=== PATIENT | female | born 2000 | race Caucasian/White ===

== ENCOUNTER → 2022-01-13 | Outpatient (CLI) | payer BC, SELFPAY ==
[2022-01-13 11:17] LABS: Estradiol 23.2 pg/mL; Luteinizing Hormone 0.8 mIU/mL; Prolactin 6.1 ng/mL; Thyroid Stim Hormone (TSH) 1.94 uIU/mL (0.358-3.74)
[2022-01-19 16:10] LABS: HPV Reflexed? NOT INDICATED
== END | disposition home or self-care (01) ==
PROVIDERS: Visit Provider Student in an Organized Health Care Education/Training Program
DX: N91.1 Secondary amenorrhea (principal); Z12.4 Encounter for screening for malignant neoplasm of cervix
CPT/HCPCS: 36415; 82670; 83001; 83002; 84146; 84443; 88175; G0145

== ENCOUNTER → 2022-07-07 | Outpatient (CLI) | payer BC, SELFPAY ==
[2022-07-07 10:58] LABS: Absolute Lymphocyte Count 1.15 X10^3/uL (0.83-4.51); Absolute Neutrophil Count 3.8 X10^3/uL (2.0-7.7); Basophil# 0.04 X10^3/uL; Basophil% 0.7 % (0-1); Eosinophil# 0.06 X10^3/uL; Eosinophils% 1.1 % (0-5); Hematocrit 37.9 % (37-47); Hemoglobin 12.9 g/dL (12.0-15.0); Lymphocyte # 1.15 X10^3/ul (0.83-4.51); Lymphocyte % 21.5 % (19-41); Mean Corpuscular Hgb 31.9 pg (27.0-32.0); Mean Corpuscular Volume 93.8 fL (81-99); Mean Platelet Vol. 11.4 fl (6.2-12.0); Monocyte# 0.33 X10^3/uL; Monocyte% 6.2 % (0-10); NRBC Flagged by Analyzer 0 % (0-5); Neutrophil # 3.77 X10^3/uL (2.7-7.7); Neutrophil % 70.3 % (47-70); Platelet Count 150 K/mm3 (150-450); RBC Distribution Width CV 12.6 % (11.6-14.6); RBC Distribution Width SD 43.5 fl (35.1-43.9); Red Blood Count 4.04 M/mm3 (4.2-5.4); White Blood Count 5.4 K/mm3 (4.4-11.0)
[2022-07-07 11:46] LABS: HIV - WCH Non-Reactive (Nonreactive); Hepatitis B Surface Antigen Non-Reactive (Nonreactive); Hepatitis C Antibody Non-Reactive (Nonreactive); Rubella IgG Reactive (Nonreactive); Syphilis Antibodies Non-reactive
[2022-07-08 11:00] LABS: V-Zoster IgG (Immunity) 2093 index (Immune >165)
== END | disposition home or self-care (01) ==
LOC: WOBLAB 09:32
PROVIDERS: Visit Provider Obstetrics & Gynecology
DX: Z34.81 Encounter for supervision of other normal pregnancy, first trimester (principal)
CPT/HCPCS: 36415; 85025; 86703; 86762; 86780; 86787; 86803; 87086; 87340

== ENCOUNTER → 2022-12-01 | Outpatient (CLI) | payer BC, SELFPAY ==
[2022-12-01 09:49] LABS: Absolute Lymphocyte Count 1.06 X10^3/uL (0.83-4.51); Absolute Neutrophil Count 5.4 X10^3/uL (2.0-7.7); Basophil# 0.05 X10^3/uL; Basophil% 0.7 % (0-1); Eosinophil# 0.11 X10^3/uL; Eosinophils% 1.6 % (0-5); Hematocrit 37.8 % (37-47); Hemoglobin 12.7 g/dL (12.0-15.0); Lymphocyte # 1.06 X10^3/ul (0.83-4.51); Mean Corp Hgb Conc 33.6 g/dL (32-36); Mean Corpuscular Hgb 32.8 pg (27.0-32.0); Mean Corpuscular Volume 97.7 fL (81-99); Monocyte# 0.37 X10^3/uL; Monocyte% 5.2 % (0-10); NRBC Flagged by Analyzer 0 % (0-5); Neutrophil # 5.37 X10^3/uL (2.7-7.7); Neutrophil % 76.2 % (47-70); Platelet Count 130 K/mm3 (150-450); RBC Distribution Width CV 13.6 % (11.6-14.6); RBC Distribution Width SD 48.1 fl (35.1-43.9); Red Blood Count 3.87 M/mm3 (4.2-5.4); White Blood Count 7.1 K/mm3 (4.4-11.0)
[2022-12-01 09:56] LABS: Glucose Challenge Gest 1H 50g 118 mg/dL (70-140)
[2022-12-01 10:19] LABS: Syphilis Antibodies Non-reactive
== END | disposition home or self-care (01) ==
LOC: WOBLAB 08:51
PROVIDERS: Visit Provider Student in an Organized Health Care Education/Training Program
DX: Z34.82 Encounter for supervision of other normal pregnancy, second trimester (principal); Z3A.00 Weeks of gestation of pregnancy not specified
CPT/HCPCS: 36415; 82950; 85025; 86780

== ENCOUNTER 2023-02-18 03:58 | Inpatient (IN) | payer BC, SELFPAY ==
[2023-02-18] VITALS (74 sets, daily range): BP systolic 97–130; BP diastolic 54–82; PULSE 53–96; TEMP 36.7–37.4; O2SAT 83–100; BMI 23.2
[2023-02-18 03:55] LABS: ROM Internal Control Test YES-OK TO RESULT pt. (Internal QC); ROM Patient Test POSITIVE (Negative)
[2023-02-18 03:56] LABS: Record Kit Lot#, ROM+ K1409
[2023-02-18] MEDS: Lactated Ringers 1,000 ML 200 ML IV ×3 (04:20→15:23)
[2023-02-18] MEDS: LACTATED RINGERS 500 ML 999 ML IV ×3 (04:20→15:52)
[2023-02-18 04:44] LABS: Absolute Lymphocyte Count 1.29 X10^3/uL (0.83-4.51); Absolute Neutrophil Count 4.2 X10^3/uL (2.0-7.7); Basophil# 0.02 X10^3/uL; Basophil% 0.3 % (0-1); Eosinophil# 0.07 X10^3/uL; Eosinophils% 1.2 % (0-5); Hematocrit 40.1 % (37-47); Hemoglobin 13.2 g/dL (12.0-15.0); Lymphocyte # 1.29 X10^3/ul (0.83-4.51); Lymphocyte % 21.3 % (19-41); Mean Corp Hgb Conc 32.9 g/dL (32-36); Mean Corpuscular Hgb 31.6 pg (27.0-32.0); Mean Corpuscular Volume 95.9 fL (81-99); Mean Platelet Vol. 13.2 fl (6.2-12.0); Monocyte# 0.48 X10^3/uL; Monocyte% 7.9 % (0-10); NRBC Flagged by Analyzer 0 % (0-5); Neutrophil # 4.17 X10^3/uL (2.7-7.7); Neutrophil % 68.8 % (47-70); Platelet Count 117 K/mm3 (150-450); RBC Distribution Width SD 45.1 fl (35.1-43.9); Red Blood Count 4.18 M/mm3 (4.2-5.4); White Blood Count 6.1 K/mm3 (4.4-11.0)
[2023-02-18] MEDS: fentaNYL-bupivacaine (epidural) 100 ML BAG EPIDURAL ×3 (05:48→14:47)
[2023-02-18 06:09] LABS: Syphilis Antibodies Non-reactive
[2023-02-18] MEDS: Oxytocin 15 Units/NS 250ml 15 UNITS/250 ML IV.SOLN 2 UNITS IV (08:19)
--- NOTE | 2023-02-18 09:53 | PCM.HP.OB ---
HPI - General General Date of Admission: 02/18/23 Date of Service: 02/18/23 Chief Complaint: labor HPI Narrative ANDREW LYONS, is a 22 F who presents c/o ctxs and SROM. SROM approx midnight. Denies gross vaginal bleeding. is uncomplicated to date other than she has been diagnosed with gestational thrombocytopenia. Platelets have remained above 100. Maternal Data Information Final BILL: 02/27/23 Gestational age: 38 5/7 PFSH PFSH Medical History no medical history Allergy/AdvReac Type Severity Reaction Status Date / Time No Known Allergies Allergy Verified 02/18/23 03:26 Family History no significant family his Surgical History no surgical history Social History Smoking Status: Never smoker History Elective abortions Hx Para 0 Spontaneous abortions Hx # Term Pregnancies Ectopic pregnancies Hx # Pregnancies Multiple births # of living children ROS Constitutional Constitutional: Denies fatigue, fever(s) or malaise Eyes Eyes: Denies change in vision ENT HEENT: Denies dizziness or headache(s) Cardiovascular Cardiovascular: Denies chest pain, dyspnea or lightheadedness Respiratory/Chest Respiratory/Chest: Denies cough or dyspnea Gastrointestinal Gastrointestinal: Denies change in bowel habits Genitourinary Genitourinary: Denies burning urination or genital lesions Integumentary Integumentary: Denies rash Neurologic Neurologic: Denies confusion, dizziness, headache(s), numbness or weakness Vital Signs Vital Signs Vital Signs: 02/18/23 03:25 02/18/23 03:25 02/18/23 03:26 Temperature Temperature Source Temporal Pulse Rate 67 Blood Pressure 121/73 H BP Systolic 121 BP Diastolic 73 Pulse Ox 02/18/23 03:26 02/18/23 05:05 02/18/23 05:05 Temperature 99.2 F H Temperature Source Pulse Rate 65 Blood Pressure BP Systolic BP Diastolic Pulse Ox 98 02/18/23 05:10 02/18/23 05:10 02/18/23 05:12 Temperature Temperature Source Pulse Rate 81 Blood Pressure 130/81 H BP Systolic 130 BP Diastolic 81 Pulse Ox 98 02/18/23 05:12 02/18/23 05:15 02/18/23 05:15 Temperature Temperature Source Pulse Rate 82 80 Blood Pressure BP Systolic BP Diastolic Pulse Ox 98 02/18/23 05:16 02/18/23 05:16 02/18/23 05:20 Temperature Temperature Source Pulse Rate 82 96 Blood Pressure 127/82 H BP Systolic 127 BP Diastolic 82 Pulse Ox 02/18/23 05:20 02/18/23 05:22 02/18/23 05:22 Temperature Temperature Source Pulse Rate 68 Blood Pressure 121/74 H BP Systolic 121 BP Diastolic 74 Pulse Ox 98 02/18/23 05:26 02/18/23 05:26 02/18/23 05:25 Temperature Temperature Source Pulse Rate 59 L Blood Pressure 100/56 L BP Systolic 100 BP Diastolic 56 Pulse Ox 98 02/18/23 05:31 02/18/23 05:31 02/18/23 05:30 Temperature Temperature Source Pulse Rate 63 Blood Pressure 102/58 L BP Systolic 102 BP Diastolic 58 Pulse Ox 97 02/18/23 05:35 02/18/23 05:35 02/18/23 05:40 Temperature Temperature Source Pulse Rate 64 60 Blood Pressure BP Systolic BP Diastolic Pulse Ox 97 02/18/23 05:40 02/18/23 05:41 02/18/23 05:41 Temperature Temperature Source Pulse Rate 59 L Blood Pressure 103/57 L BP Systolic 103 BP Diastolic 57 Pulse Ox 97 02/18/23 05:42 02/18/23 05:42 02/18/23 05:45 Temperature Temperature Source Pulse Rate 75 59 L Blood Pressure 111/58 L BP Systolic 111 BP Diastolic 58 Pulse Ox 02/18/23 05:45 02/18/23 05:46 02/18/23 05:46 Temperature Temperature Source Pulse Rate 57 L Blood Pressure 103/55 L BP Systolic 103 BP Diastolic 55 Pulse Ox 98 02/18/23 05:51 02/18/23 05:51 02/18/23 05:50 Temperature Temperature Source Pulse Rate 58 L Blood Pressure 106/57 L BP Systolic 106 BP Diastolic 57 Pulse Ox 99 02/18/23 05:55 02/18/23 05:55 02/18/23 06:00 Temperature Temperature Source Pulse Rate 59 L 60 Blood Pressure BP Systolic BP Diastolic Pulse Ox 98 02/18/23 06:00 02/18/23 06:05 02/18/23 06:05 Temperature Temperature Source Pulse Rate 63 Blood Pressure BP Systolic BP Diastolic Pulse Ox 98 97 02/18/23 06:10 02/18/23 06:10 02/18/23 06:15 Temperature Temperature Source Pulse Rate 63 63 Blood Pressure BP Systolic BP Diastolic Pulse Ox 96 02/18/23 06:15 02/18/23 06:20 02/18/23 06:20 Temperature Temperature Source Pulse Rate 61 Blood Pressure BP Systolic BP Diastolic Pulse Ox 97 98 02/18/23 06:23 02/18/23 06:23 02/18/23 08:05 Temperature Temperature Source Pulse Rate 55 L Blood Pressure 110/66 107/57 L BP Systolic 110 107 BP Diastolic 66 57 Pulse Ox 02/18/23 08:05 02/18/23 08:05 02/18/23 08:05 Temperature Temperature Source Temporal Pulse Rate 70 80 Blood Pressure BP Systolic BP Diastolic Pulse Ox 02/18/23 08:05 02/18/23 08:05 02/18/23 08:57 Temperature 98.9 F Temperature Source Temporal Pulse Rate Blood Pressure BP Systolic BP Diastolic Pulse Ox 98 02/18/23 08:57 02/18/23 08:57 02/18/23 08:57 Temperature Temperature Source Pulse Rate 58 L Blood Pressure 105/59 L BP Systolic 105 BP Diastolic 59 Pulse Ox 98 02/18/23 08:57 Temperature 98.3 F Temperature Source Pulse Rate Blood Pressure BP Systolic BP Diastolic Pulse Ox Weight Weight: 65.317 kg Body Mass Index (BMI) 23.2 Physical Exam Const alert and no apparent distress General Appearance: cooperative HEENT normocephalic Resp normal respiratory effort Cardio regular rate GI soft to palpation GI Narrative: gravid, nontender, appropriate for gestational age Extremity no calf tenderness General Extremity: edema Skin no wounds Rashes: No rashes noted Psych activity/motor behavior normal Labs Labs Labs: Blood Type A POSITIVE Antibody Screen NEGATIVE Hct 40.1 % (37-47) Hgb 13.2 g/dL (12.0-15.0) Syphilis Total Ab Non-reactive VZV IgG Antibody 2093 index (Immune >165) Rubella IgG Antibody Reactive (Nonreactive) Hep Bs Antigen Non-Reactive (Nonreactive) Hepatitis C Antibody Non-Reactive (Nonreactive) HIV 1&2 Antibody Non-Reactive (Nonreactive) Glucose 1 Hr 50 gm 118 mg/dL (70-140) Assessment & Plan (1) 38 weeks gestation of : PLAN: 22-year-old 1 para 0 at term in spontaneous labor. Spontaneous rupture membranes. Estimated weight is less than 4000 g clinically and by ultrasound and pelvis clinically adequate to expect vaginal delivery. May have routine pain control measures as desired and indicated. Pitocin augmentation if needed. Expectant management for vaginal delivery. (2) SROM (spontaneous rupture of membranes): (3) Nulliparity:
--- NOTE | 2023-02-18 16:44 | OP.PCM_ITS ---
Maternal Data Information Final BILL: 02/27/23 Gestational age: 38 5/7 Vaginal Delivery Maternal Presentation Maternal Presentation: Active Labor and Spontaneous Rupture of Membranes Operative Information Date of Procedure: 02/18/23 Pre-Operative Diagnosis: labor Post-Operative Diagnosis: same Surgery / Procedure Performed: Spontaneous Vaginal Delivery Type of Anesthesia: Epidural Special Medications: none Drain: Rajput to straight drain Estimated Blood Loss: 400 Time of Delivery: 16:26 Findings Description of Procedure: A vigorous female infant was delivered KYLER over an intact perineum. There was a tight nuchal cord and the infant was delivered through it. The remainder the infant was delivered with maternal pushing and gentle traction only in less than 15 seconds. The Pitocin infusion was initiated for active management of the third stage. The cord was clamped and cut after cord pulsations ceased. The in josr was attended to by the waiting nursing staff. The placenta was delivered spontaneously and intact. The cervix and vagina were intact. The first-degree vaginal laceration was repaired with 3-0 Vicryl Rapide suture in a running standard fashion and was hemostatic. Sponge and needle counts were correct. A vaginal sweep was completed by me. Presentation: KYLER Amniotic Membrane Rupture Type: Spontaneous Amniotic Fluid Description: Clear Placental Delivery Description: Spontaneous Placenta Disposition: [facility] Cord Vessel Description: 3 Vessels Cord Entanglement: Around neck x 1, tight Nuchal Cord Compression: Without compression A Gender: Female ([place] (1 minute): 9 (5 minute): 9 Delayed Cord Clamping: Yes Post Vaginal Delivery Medications Given After Delivery: IV Pitocin Episiotomy Description: None Laceration: 1st degree (vaginal) Complication Complications: None
[2023-02-18] MEDS: Oxytocin 15 Units/NS 250ml 15 UNITS/250 ML IV.SOLN 83 UNITS IV (17:25)
[2023-02-19 01:25] VITALS: BP 103/68; PULSE 56; RESP 18; TEMP 36.6
[2023-02-19 05:07] VITALS: BP 105/67; PULSE 76; RESP 18
[2023-02-19 08:17] VITALS: BP 104/59; PULSE 72; RESP 18; TEMP 36.7; O2SAT 98
[2023-02-19] MEDS: Senna/Docusate Sodium 1 Tablet PO (10:11)
[2023-02-19 12:07] VITALS: BP 114/68; PULSE 61; RESP 18; TEMP 36.7
--- NOTE | 2023-02-19 12:53 | PCM.PN.OB ---
Subjective Subjective Doing well per patient and nursing staff. Ambulating and taking PO without difficulty. Voiding and passing flatus. Pain controlled. Denies headache, visual changes, chest pain, shortness of breath, leg pain or increased bleeding. Lochia normal. Objective Data Objective Data Vital Signs: Vital Signs Temp Pulse Resp BP Pulse Ox O2 Del Method 98.1 F 61 18 114/68 98 Room Air 02/19/23 12:07 02/19/23 12:07 02/19/23 12:07 02/19/23 12:07 02/19/23 08:17 02/19/23 12:07 Oxygen Delivery Method Room Air Weight: 144 lb Body Mass Index (BMI) 23.2 Intake & Output: Intake and Output for Last 24 Hours 02/17/23 02/18/23 02/19/23 23:59 23:59 23:59 Intake Total 7000.00 / 7000.00 800 / 800 Output Total 2850 / 2850 1700 / 1700 Balance 4150.00 / 4150.00 -900 / -900 Lab / Micro Data 02/18/23 04:20 ROS Constitutional Constitutional: Reports systems reviewed and no addt'l complaints, except as documented; Denies headache(s) Eyes Eyes: Denies acute decrease in peripheral vision, blurry vision or change in vision ENT HEENT: Reports systems reviewed and no addt'l complaints, except as documented Cardiovascular Cardiovascular: Denies chest pain or dizziness Respiratory/Chest Respiratory/Chest: Denies cough, dyspnea, dyspnea on exertion, shortness of breath at rest or shortness of breath with exertion Gastrointestinal Gastrointestinal: Denies abdominal pain, diarrhea, nausea or vomiting Genitourinary Genitourinary: Denies abdominal discomfort Musculoskeletal Musculoskeletal: Denies limited range of motion Integumentary Integumentary: Reports systems reviewed and no addt'l complaints, except as documented Neurologic Neurologic: Reports systems reviewed and no addt'l complaints, except as documented Psychiatric Psychiatric: Reports systems reviewed and no addt'l complaints, except as documented Endocrine Endocrinology: Reports systems reviewed and no addt'l complaints, except as documented Hematologic/Lymphatic Hematologic/Lymphatic: Reports systems reviewed and no addt'l complaints, except as documented Allergic/Immunologic Allergic/Immunologic: Reports systems reviewed and no addt'l complaints, except as documented Physical Exam Const alert and oriented x3 General Appearance: cooperative Orientation / Consciousness: awake, oriented to person, oriented to place and oriented to time Exam Limitations: no limitations HEENT normocephalic Head and Scalp: normal to inspection, normocephalic and atraumatic Face and Sinus: normal facial exam Eyes General Eye: normal appearance of both eyes Neck full ROM Chest Chest: symmetrical chest wall rise Resp normal respiratory effort and normal air movement Auscultation: clear to auscultation bilaterally Cardio regular rate, regular rhythm, S1 normal heart sound, S2 normal heart sound, no murmurs, no rub, no gallops and no clicks GI normal to inspection, nondistended, normoactive bowel sounds and non-tender appearance of the vagina normal Bladder / Kidney Exam: no CVA tenderness Back/Spine normal ROM Extremity normal to inspection and full ROM Skin no rashes or lesions noted Neuro oriented x3, CN's II-XII intact bilaterally and moves all extremities Sensorium / Orientation: awake, alert and oriented to person Motor Exam: clonus absent Deep Tendon Reflexes: Rt Patellar (L4): 2+ and Lt Patellar (L4): 2+ Assessment & Plan (1) Vaginal delivery: PLAN: Plan 1) D/C home today 2) Follow up 2 week and 6 week PP
--- NOTE | 2023-02-19 13:06 | PCM.DC.SUM ---
Providers Date of Admission: 02/18/23 Date of Discharge: 02/19/23 Reason For Visit: VAG DELIVERY Diagnosis Discharge Diagnosis (1) Vaginal delivery: Status: Acute Code(s): O80 - Encounter for full-term uncomplicated delivery Plan 1) D/C home today 2) Follow up 2 week and 6 week PP Medications at Discharge Home Medications acetaminophen 500 mg tablet 1,000 mg (2 x 500 mg) PO Q6H PRN PRN Pain 1-10 Or Fever #0 tabs 02/19/23 ibuprofen 600 mg tablet 600 mg PO Q6H PRN PRN Pain Score 1-3 #0 tabs 02/19/23 Hospital Course Summary of Care Provided Minutes Spent on Discharge: 15 Weight / BMI Weight Weight: 144 lb Body Mass Index (BMI) 23.2 ABG / Lab / Microbiology Data 02/18/23 04:20 Meaningful Use Info Meaningful Use Diagnoses (Choose all that apply): None applicable Discharge Plan Admission Admit Date/Time: 02/18/23 03:58 Primary Reason for Your Visit: Vaginal Delivery Attending Provider: Estephania Parra Discharge Orders/Prescriptions Prescriptions: New acetaminophen 500 mg Tablet 1,000 mg PO Q6H PRN PRN (Reason: Pain 1-10 Or Fever) Qty: 0 0RF ibuprofen 600 mg Tablet 600 mg PO Q6H PRN PRN (Reason: Pain Score 1-3) Qty: 0 0RF Referrals / Follow Up: Estephania Parra MD [Med Staff - Active Staff] - (Follow up in 2 weeks and 6 weeks for visit) Disposition Disposition (needs filled in before D/C Order can be placed): Home, Self Care
[2023-02-19 17:31] VITALS: BP 114/68; PULSE 58; RESP 16; TEMP 36.6
== END 2023-02-19 18:00 | disposition home or self-care (01) | DRG 807 ==
LOC: WP 02-19 09:36 → WPOUT 02-19 11:26
PROVIDERS: Admitting Provider Obstetrics & Gynecology; Referring Provider Obstetrics & Gynecology; Visit Provider Obstetrics & Gynecology
DX: O99.12 Other diseases of the blood and blood-forming organs and certain disorders involving the immune mechanism complicating childbirth (principal); Z37.0 Single live birth; D69.59 Other secondary thrombocytopenia; O69.2XX0 Labor and delivery complicated by other cord entanglement, with compression, not applicable or unspecified; O70.0 First degree perineal laceration during delivery; Z3A.38 38 weeks gestation of pregnancy
CPT/HCPCS: 59025; 59050; 84112; 85025; 86780; 86850; 86900; 86901; 99221; J7120; G0378

== ENCOUNTER → 2024-10-20 | Outpatient (CLI) | payer BC, SELFPAY ==
[2024-10-20 17:01] LABS: Absolute Lymphocyte Count 1.53 X10^3/uL (0.83-4.51); Absolute Neutrophil Count 5.5 X10^3/uL (2.0-7.7); Basophil# 0.05 X10^3/uL; Basophil% 0.6 % (0-1); Eosinophils% 1.3 % (0-5); Hematocrit 38.2 % (37-47); Hemoglobin 13.3 g/dL (12.0-15.0); Lymphocyte # 1.53 X10^3/ul (0.83-4.51); Lymphocyte % 19.8 % (19-41); Mean Corp Hgb Conc 34.8 g/dL (32-36); Mean Corpuscular Hgb 31.6 pg (27.0-32.0); Mean Corpuscular Volume 90.7 fL (81-99); Mean Platelet Vol. 12.6 fl (6.2-12.0); Monocyte# 0.47 X10^3/uL; Monocyte% 6.1 % (0-10); NRBC Flagged by Analyzer 0 % (0-5); Neutrophil # 5.54 X10^3/uL (2.7-7.7); Neutrophil % 71.8 % (47-70); Platelet Count 160 K/mm3 (150-450); RBC Distribution Width CV 12.9 % (11.6-14.6); RBC Distribution Width SD 42.4 fl (35.1-43.9); Red Blood Count 4.21 M/mm3 (4.2-5.4); White Blood Count 7.7 K/mm3 (4.4-11.0)
[2024-10-20 17:31] LABS: HIV Nonreactive (Nonreactive); Hepatitis B Surface Antigen Nonreactive (Nonreactive); Hepatitis C Antibody Nonreactive (Nonreactive); Rubella IgG REAC (Nonreactive); Syphilis Antibodies Nonreactive (Nonreactive)
[2024-10-23 05:07] LABS: Chlamydia By Nucleic Acid AMP Negative (Negative); Gonococcus By Nucleic Acid AMP Negative (Negative)
== END | disposition home or self-care (01) ==
LOC: BWCLAB 16:00
PROVIDERS: Referring Provider Obstetrics & Gynecology; Visit Provider Obstetrics & Gynecology
DX: Z34.90 Encounter for supervision of normal pregnancy, unspecified, unspecified trimester (principal); Z12.4 Encounter for screening for malignant neoplasm of cervix
CPT/HCPCS: 36415; 85025; 86703; 86762; 86780; 86803; 86850; 86900; 86901; 87086; 87088; 87340; 87491; 87591; 88175; G0145

== ENCOUNTER → 2025-02-16 | Outpatient (CLI) | payer BC, SELFPAY ==
[2025-02-16 09:07] LABS: Hematocrit 39.6 % (37-47); Hemoglobin 13.4 g/dL (12.0-15.0); Immature Granulocytes Count 0.090 X10^3/uL (0.0-0.0); Mean Corp Hgb Conc 33.8 g/dL (32-36); Mean Corpuscular Volume 93.8 fL (81-99); Mean Platelet Vol. 12.1 fl (6.2-12.0); NRBC Flagged by Analyzer 0 % (0-5); Platelet Count 125 K/mm3 (150-450); RBC Distribution Width CV 13.2 % (11.6-14.6); RBC Distribution Width SD 45.0 fl (35.1-43.9); Red Blood Count 4.22 M/mm3 (4.2-5.4); White Blood Count 6.6 K/mm3 (4.4-11.0)
[2025-02-16 10:04] LABS: Glucose Challenge Gest 1H 50g 131 mg/dL (70-140); HIV Nonreactive (Nonreactive); Syphilis Antibodies Nonreactive (Nonreactive)
== END | disposition home or self-care (01) ==
PROVIDERS: Visit Provider Obstetrics & Gynecology
DX: Z34.90 Encounter for supervision of normal pregnancy, unspecified, unspecified trimester (principal); Z13.1 Encounter for screening for diabetes mellitus
CPT/HCPCS: 36415; 82950; 85025; 86703; 86780

== ENCOUNTER → 2025-02-26 | Outpatient (CLI) | payer BC, SELFPAY ==
--- NOTE | 2025-02-26 12:29 | US_ITS ---
PROCEDURE: OB LIMITED (NO BIOMETRICS) 02/26/2025 REASON FOR EXAM: PLACENTA LOCATION FOLLOW UP TECHNIQUE: Procedure Code: USOBL Modality: US Procedure: OB LIMITED (NO BIOMETRICS) COMPARISON: None FINDINGS Number: 1 Position: Vertex Placental Position: Posterior and not low-lying Placental Abnormalities: No evidence of previa. ESTIMATED GESTATIONAL AGE: Baseline: 28 weeks and 0 days ESTIMATED DATE OF DELIVERY: Baseline: May 21, 2025 BIOPHYSICAL ASSESSMENT: Amniotic Fluid Volume: 3.2 cm. Amniotic Fluid Index: Within normal limits. (8-24 cm normal range) Cardiac Motion: 141 beats per minute (average) Trunk and Limb Motion: Present. MATERNAL ANATOMY: Adnexa: Neither maternal ovary is successfully identified. Cervical Length (if measured): 3.3 cm US/OB Limited (No Biometrics) IMPRESSION: Posterior placenta. Not low-lying. Reading Location: [facility]
== END | disposition home or self-care (01) ==
PROVIDERS: Referring Provider Advanced Practice Midwife; Visit Provider Advanced Practice Midwife
DX: O44.03 Complete placenta previa NOS or without hemorrhage, third trimester (principal); Z3A.28 28 weeks gestation of pregnancy
CPT/HCPCS: 76815

== ENCOUNTER → 2025-04-13 | Outpatient (CLI) | payer BC, SELFPAY ==
[2025-04-13 12:36] LABS: Hematocrit 39.3 % (37-47); Hemoglobin 13.3 g/dL (12.0-15.0); Immature Granulocytes Count 0.060 X10^3/uL (0.0-0.0); Mean Corp Hgb Conc 33.8 g/dL (32-36); Mean Corpuscular Volume 94.7 fL (81-99); Mean Platelet Vol. 13.0 fl (6.2-12.0); NRBC Flagged by Analyzer 0 % (0-5); Platelet Count 117 K/mm3 (150-450); RBC Distribution Width CV 13.5 % (11.6-14.6); RBC Distribution Width SD 46.5 fl (35.1-43.9); Red Blood Count 4.15 M/mm3 (4.2-5.4); White Blood Count 6.7 K/mm3 (4.4-11.0)
== END | disposition home or self-care (01) ==
LOC: BWCLAB 10:15
PROVIDERS: Obstetrics & Gynecology; Visit Provider Nurse Practitioner Women's Health
DX: O99.119 Other diseases of the blood and blood-forming organs and certain disorders involving the immune mechanism complicating pregnancy, unspecified trimester (principal); D69.6 Thrombocytopenia, unspecified; Z3A.00 Weeks of gestation of pregnancy not specified
CPT/HCPCS: 36415; 85025

== ENCOUNTER → 2025-04-24 | Outpatient (CLI) | payer BC, SELFPAY ==
--- NOTE | 2025-04-24 18:22 | US_ITS ---
PROCEDURE: OB LIMITED WITH BIOMETRICS 04/24/2025 REASON FOR EXAM: GROWTH TECHNIQUE: Procedure Code: [id number] Modality: US Procedure: OB LIMITED WITH BIOMETRICS COMPARISON: 02/26/2025 FINDINGS FETUS: There is a single living intrauterine gestation. POSITION: position is cephalic. HEART RATE: The heart rate is 131 BPM and regular. BIOMETRICS: Based on composite biometry, the composite estimated gestational age by ultrasound is 35 weeks 5 days. LMP gestational age: 36 weeks 1 day LMP BILL: May 21, 2025 Sonographic gestational age: 35 weeks 5 days Sonographic BILL: May 24, 2025 ANATOMIC SURVEY: Detailed anatomy survey not performed. PLACENTA: The placenta is posterior. No demonstrated evidence of previa or abruption. AMNIOTIC FLUID: Within normal limits. EZEQUIEL measuring 8.0cm. CERVIX: Not well seen due to shadowing from the skull. SONOGRAPHIC MEASUREMENTS: Bi-Parietal Diameter (BPD): 8.7 cm; 34 weeks 6 days Head Circumference (HC): 31.7 cm; 35 weeks 4 days Abdominal Circumference (AC): 32.4 cm; 36 weeks 2 days Femur Length (FL): 6.6 cm; 34 weeks 1 day Estimated weight: 2729 grams +/-409 grams (6 lb 0 oz) EFW percentile: 38 % US/OB Limited With Biometrics IMPRESSION: 1. Single living intrauterine gestation estimated at 35 weeks 5 days by today's ultrasound criteria. Size equals dates with normal interval growth. 2. No acute abnormality detected. Reading Location: [id number]
--- OUTSIDE RECORDS SUMMARY | 2025-04-24 18:38 | XMS RPT_ITS | CCD ---
Author Organization [facility] CliniSysd Care Team Providers Care Debt Collection Specialist Name Role Phone Unavailable Primary Care Provider UnavailDIDIER Pickering Attending Unavailable YEE DIAZ Referring Unavailable Consuelo SPANN, Dr. Sullivan Attending Provider [phone] Dr. Laurie Cordero MD Referring Provider Rubin Aleman CNM Attending Provider [phone] NO PRIMARY CARE, MD Primary Care Unavailable ALVAREZ VILLEGAS Attending Unavailable RUBIN ALEMAN Referring Unavailable Dr. Laurie Cordero MD Attending Physician Rubin Aleman CNM Attending Physician [phone] Dr. Tala Muñoz DO Attending Physician Dr. Laurie Cordero MD Attending Physician Shanae Rhoades Attending Physician [phone] Rubin Aleman CNM Referring Provider [phone] Care Physician, No Primary Primary Care Physicia n Unavailable Seferino DIESEL POWER MECHANIC - PRESCHOOL ASSOCIATE TEACHER, Riaz Primary Care Provider RIAZ RIOS Attending Unavailable RIAZ RIOS Referring Unavailable RIAZ RIOS Primary Care Unavailable Rubin Aleman Attending Unavailable Laurie Cordero Attending Unavailable Tala Muñoz Attending UnavailShanae Martell NP Attending Unavailable Care Physician, No Primary Primary Care Unava ilable Care Physician, No Primary Referring Unava ilable Tala Muñoz Attending UnavailRubin Herndon Attending Unavailable Rubin Aleman Referring Unavailable Care Physician, No Primary Primary Care Unava ilable Laurie Cordero Attending Unavailable Laurie Cordero Referring Unavailable OOTDR WESTLEY Attending Unavailable Care Physician, No Primary Primary Care Unava ilable Tala Muñoz Attending Unavailabl e Laurie Cordero Attending Unavailable Laurie Cordero Attending Unavailable Medications Current Medications Medication Drug Class(es) Dates Sig (Normalized) Sig (Original) acetaminophen 500 mg oral tablet (7 sources) Start: 02-19-2023 take 1-10 tablets by mouth every six hours as needed for pain Start: 02-19-2023 take 1000 mg by mout h every six hours as needed Acetaminophen Active 1000 MG PO EVERY 6 HOURS NEEDED 0 February 19, 2023 12:00am Albuterol (11 sources) beta2-Adrenergic Agonist ALBUTER OL SULFATE HFA INHALATION Inhale as instructed. Active ALBUTEROL SULFAT E HFA INHALATION Inhale as instructed. 0 Active Comment on above: Inhale as instructed . Mv-Mins 03-Sard-Urkkj No.1-D parrish (Pnv-Fargo) 28-1-300 mg capsule (6 sources) Start: 10-10-2024 Start: 10-10-2024 Mv-Mins 71-Iro n-Folic No.1-Dha (Pnv-Fargo) 28-1-300 mg capsule Active NMA PO October 10, 2024 12:00am Complies with drug therapy Start: 10-10-2024 Mv-Mins 71-Iro n-Folic No.1-Dha (Pnv-Fargo) 28-1-300 mg capsule Active NMA PO October 10, 2024 12:00am VIT 68-ITQB-TGRZQ-D PARRISH ORAL (11 sources) VIT 32- WHDT-GMBAY-MOB ORAL Take by mouth. Active VIT 32- QOYQ-PZMAO-ZOJ ORAL Take by mouth. 0 Active Comment on above: Take by mouth. Completed/Discontinued Medications Medication Drug Class(es) Dates Sig (Normalized) Sig (Original) docosahexaenoic acid 200 mg oral capsule (6 sources) Start: 09-25-2024 End: 10-10-2024 Docosahexaenoic Acid ( Dha) 200 mg capsule Discontinued mg PO September 25, 2024 12:00am October 10, 2024 2:19pm ibuprofen 600 mg oral tablet (7 sources) Nonsteroidal Anti-inflammatory Drug Start: 02-19-2023 End: 10-10-2024 take 1 tablet by mouth every six hours as needed for pain Ibuprofen 600 mg Tablet Discontinued 600 mg PO EVERY 6 HOURS NEEDED as needed for Pain Score 1-3 0 0 February 19, 2023 12:00am October 10, 2024 2:19pm norethindrone 0.35 mg oral tablet (6 sources) Start: 04-02-2023 End: 05-15-2024 take 1 tablet by mouth once daily Norethindrone, Contraceptive, 0.35 mg tablet take 1 tablet by mouth every day 84 tablet 1 07/25/2023 05/15/2024 Discontinued (Other) Comment on above: Take 1 tablet by oly th once daily. take 1 tablet by oly th every day Problems Active Problems Problem Classification Problem Date Documented Date Episodic/Chronic Administrative/socia l admission (8 sources) Nulliparous; Translations: [Nulliparity] 02-18-2023 Episodic Asthma (20 sources) Exercise induced bronchospasm; Translations: [Exercise induced bronchospasm] Onset: 12-25-2024 10-10-2024 Chronic Coagulation and hemorrhagic disorders (2 sources) Thrombocytopenia, unspecified; Translations: [Thrombocytopenia, unspecified] Onset: 03-04-2025 Chronic Hemorrhage during ; abruptio placenta; placenta previa (8 sources) Antepartum hemorrhage; Translations: [Hemorrhage in early , unspecified] Onset: 05-27-2024 05-26-2024 Episodic Comment on above: partial. pelvic rest . US 28 wk Immunizations and screening for infectious disease (1 source) Encounter for immunization; Translations: [Encounter for immunization] Onset: 03-12-2025 Episodic Menstrual disorders (1 source) Amenorrhea, unspecified; Translations: [Amenorrhea, unspecified] Onset: 09-25-2024 Chronic Other complications of (1 source) Thrombocytopenic disorder; Translations: [Other diseases of the blood and blood-forming organs and certain disorders involving the immune mechanism complicating , unspecified trimester] 02-16-2025 Episodic Comment on above: rpt CBC next visit Other complications of (1 source) Other diseases of the blood and blood-forming organs and certain disorders involving the immune mechanism complicating , unspecified trimester; Translations: [Other diseases of the blood and blood-forming organs and certain disorders involving the immune mechanism complicating , unspecified trimester] Onset: 03-12-2025 Episodic Other and delivery including normal (20 sources) ; Translations: [Encounter for supervision of normal , unspecified, unspecified trimester] Onset: 01-03-2023 Resolved: 04-02-2023 01-03-2023 Episodic Comment on above: , BILL 05/21/25, P Dwayne Martin(ADOPTED), Jennifer Fan discussed NIPT & Car rier testing-undecided PRR , BILL 6, PC Veronica(ADOPTED), Jennifer Fan Other skin disorders (3 sources) Finding of neck region; Translations: [Localized swelling, mass and lump, neck] Onset: 03-09-2025 03-09-2025 Episodic Other skin disorders (1 source) Localized swelling, mass and lump, neck; Translations: [Localized swelling, mass and lump, neck] Onset: 03-09-2025 Episodic Polyhydramnios and other problems of amniotic cavity (6 sources) Spontaneous rupture of membranes 10-10-2024 Episodic Residual codes; unclassified (1 source) Gestation period, 36 weeks; Translations: [36 weeks gestation of ] 02-05-2023 Episodic Residual codes; unclassified (2 sources) Gestation period, 37 weeks; Translations: [37 weeks gestation of ] 02-12-2023 Episodic Residual codes; unclassified (7 sources) Gestation period, 38 weeks; Translations: [38 weeks gestation of ] 02-18-2023 Episodic Residual codes; unclassified (1 source) 38 weeks gestation of ; Translations: [ state, incidental] 02-19-2023 Episodic Residual codes; unclassified (20 sources) Family history of cancer of colon; Translations: [Family history of malignant neoplasm of digestive organs] 10-10-2024 Episodic Comment on above: 84yo Paternal grandm other- Residual codes; unclassified (1 source) 28 weeks gestation of ; Translations: [28 weeks gestation of ] Onset: 03-04-2025 Episodic Residual codes; unclassified (1 source) 19 weeks gestation of ; Translations: [19 weeks gestation of ] Onset: 12-25-2024 Episodic Residual codes; unclassified (1 source) Family history of malignant neoplasm of digestive organs; Translations: [Family history of malignant neoplasm of digestive organs] Onset: 12-25-2024 Episodic Unclassified (2 sources) Spontaneous rupture of membranes; Translations: [Spontaneous rupture of amniotic membranes] 02-18-2023 Varicose veins of lower extremity (20 sources) Varicose veins of lower extremity; Translations: [Asymptomatic varicose veins of unspecified lower extremity] Onset: 12-25-2024 10-10-2024 Episodic Comment on above: right leg Past or Other Problems Problem Classification Problem Date Documented Da te Episodic/Chronic Other complications of (9 sources) Benign gestational thrombocytopenia; Translations: [Other diseases of the blood and blood-forming organs and certain disorders involving the immune mechanism complicating , unspecified trimester] Onset: 01-25-2023 Resolved: 04-02-2023 02-05-2023 Episodic Other complications of (9 sources) Uterine size for dates discrepancy; Translations: [Uterine size-date discrepancy, third trimester] Onset: 02-12-2023 Resolved: 04-02-2023 02-12-2023 Episodic Other screening for suspected conditions (not mental disorders or infectious disease) (1 source) Encounter for screening for malignant neoplasm of cervix; Translations: [Encounter for screening for malignant neoplasm of cervix] Onset: 10-20-2024 Episodic Residual codes; unclassified (1 source) 9 weeks gestation of ; Translations: [9 weeks gestation of ] Onset: 10-20-2024 Episodic Results Test Name Value Interpretation Reference Range Facility Segment Assembler Office Visit Reporton 03-12-2025 Segment Assembler Office Visit Report [facility] [address], [address] [place] [address] OFFICE VISIT Date of Service: 03/12/25 MR#: [id number] Acct: [id number] Name: MARIMAR MIRZA Rep #: [id number] : 2000 Provider: Dr. Tala Baker DO Age/Sex: 24/F Location: [facility] Status: Signed Intake Vital Signs 12/25/24 10:16 02/16/25 08:45 03/12/25 10:02 Height 5 ft 6 in 5 ft 6 in 5 ft 6 in Weight: 137 lb 1 oz 140 lb 7 oz BMI 22.1 22.6 BP 88/54 L 127/72 H Intake Visit Reasons: 30 WK OB Chief Complaint: 30wk OB Utilities Ground Worker Required: No Is patient in pain?: No Allergies No Known Allergies Allergy (Verified 03/12/25 10:00) Medications ???Medication ???Instructions ???Recorded ???Confirmed ???Type acetaminophen 500 mg tablet 1,000 mg (2 x 500 mg) PO Q6H PRN 1 03/12/25 Rx PRN Pain 1-10 Or Fever #0 tabs multivit-min no.71-iron fum 28 cap PO 10/10/24 03/12/25 History mg-folate no.1 1 mg-dha 300 mg capsule (PNV-Fargo) Last Menstrual Period: 08/14/24 Have you fallen in the past year?: No PFSH PFSH Surgical History History of mandibular surgery Family History Grandmother Colon cancer, Onset Age: 84 Paternal Social History adopted: No household members: spouse and children housing: house number of children: 2 current occupational status: employed 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 current occupational exposures/hazards: No pets and animals: No history of recent travel: Yes ([place]- September) out of state: Yes out of country: No sexually active: Yes Smoking Status: Never smoker alcohol intake: current alcohol intake frequency: holidays/special occasions only details: Not while substance use type: does not use well-balanced diet: daily or most days caffeine: No eating out: 1-3 times/week during the past year weight has: remained stable what type of physical activity do you participate in: walking and running frequency: daily duration: 30-45 minutes/day davide/shinto: Alevism seatbelt use: always do you feel safe at home: Yes 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 Date Name GA/Weeks Outcome Route Bth Weight Infant Gen Labor Lgth Anesthesia Del Locatn Provider FOB 07/19/19 ADOPTED- [facility] 02/18/23 [facility] 39 live - full term 7# Female epidural [facility] Dr. Rinku Calderon Delivery Date: 02/18/23 Last Updated by: My Pagan subchorionic hemorrhage 1st trimester HPI 30 WK OB Details: MARIMAR MIRZA is a 24 year old who presents for routine OB visit. OB Visit BILL Calculator Estimated Delivery Date Method Current WG Current Estimate 05/21/25 LMP (Certain) 30w 0d Expected Delivery Route/Plan Labor Preferences- CB/BF classes: no labor support person: Fan labor intervention preferences: [] pain management options preferred: epidural cut cord/dad catch: no : yes PP control planned: discussed discussed possible routes of delivery and associated risks: [] special requests: [] Specific Issue/Plans Covid status: [] Flu vaccine: declines Tdap vaccine: [] Rhogam: NA LARC form signed: yes Problem list reviewed and updated with the most current plan of care details and appropriate orders placed. Relevant counseling for the gestational age provided. Continue routine care and follow up unless otherwise noted in visit notes/problem list details Initial Weight: Not Recorded Date -???-???-???-???-??? -???-???-???-???-??? -???-???- EGA Weight BP Urine Prot -???-???-???-???-??? -???-???-???-???-??? -???-???- Glucose FHR FuHt Pres Dilation -???-???-???-???-??? -???-???-???-???-??? -???-???- Effaced St Visit Note 10/20/24 -???-???-???-???-??? -???-???-???-???-??? -???-???- 9w 4d 125 lb 8 oz 96/54 -???-???-???-???-??? -???-???-???-???-??? -???-???- 160 -???-???-???-???-??? -???-???-???-???-??? -???-???- SM- CRL 3 co ns cm with LMP 11/27/24 -???-???-???-???-??? -???-???-???-???-??? -???-???- 15w 0d 128 lb 4 oz 104/63 -???-???-???-???-??? -???-???-???-???-??? -???-???- 155 -???-???-???-???-??? -???-???-???-???-??? -???-???- KW- no vb/cr amping. US ordered. compression hose for varicose veins 12/25/24 -???-???-???-???-??? -???-???-???-???-??? -???-???- 19w 0d 132 lb 9 oz 94/54 Negative -???-???-???-???-??? -???-???-???-???-??? -???-???- Negative 150 -???-???-???-???-??? -???-???-??? (more content not included)... Normal [facility] HEAD NECK SOFT TISSUEon 1 05-09-2024 US HEAD NECK SOFT TISSUE Patient Name: MARIMAR MIRZA : 2000 Exam Date/Time: 03/09/2025 08:20 Procedure: US HEAD NECK SOFT TISSUE Ordering Provider: RIOS NATHAN Reason For Exam: Localized swelling, mass and lump, neck EXAM TYPE: ULTRASOUND HEAD AND NECK SOFT TISSUE. CLINICAL INDICATION: Localized swelling, mass and lump, neck ADDITIONAL INFORMATION: None COMPARISON: None. LIMITATIONS: As below. COMPARISON: None. TECHNIQUE: Grayscale sonographic images were obtained of the right posterior neck. FINDINGS: Underlying the patient's area of palpable concern within the right posterior neck is a encapsulated lesion relatively hyperechoic to adjacent paraspinal musculature measuring 4.9 x 4.8 x 1.0 cm in size. No suspicious lymph nodes. No fluid collection. IMPRESSION: Solid lesion underlying the patient's area of palpable concern within the right posterior neck, likely represents a lipoma. No further follow-up recommended. Report Dictated on Electronically Signed By: Ralf Albert MD Electronically Signed Date/Time: 03/09/2025 3:18 PM EST [facility] US Head and neck soft tissue on 03-09-2025 Solid lesion underlying the patient's area of palpable concern within the right posterior neck, likely represents a lipoma. No further follow-up recommended. Report Dictated on Electronically Signed By: Ralf Albert MD Electronically Signed Date/Time: 03/09/2025 3:18 PM [facility] Patient [facility] 2000 [id number] Exam Date/Time: 03/09/2025 08:20 Procedure: US HEAD NECK SOFT TISSUE Ordering Provider: RIOS NATHAN Reason For Exam: Localized swelling, mass and lump, neck EXAM TYPE: ULTRASOUND HEAD AND NECK SOFT TISSUE. CLINICAL INDICATION: Localized swelling, mass and lump, neck ADDITIONAL INFORMATION: None COMPARISON: None. LIMITATIONS: As below. COMPARISON: None. TECHNIQUE: Grayscale sonographic images were obtained of the right posterior neck. FINDINGS: Underlying the patient's area of palpable concern within the right posterior neck is a encapsulated lesion relatively hyperechoic to adjacent paraspinal musculature measuring 4.9 x 4.8 x 1.0 cm in size. No suspicious lymph nodes. No fluid collection. [facility] Ralf Albert MD - 03/09/2025 Patient Name: MARIMAR MIRZA : 2000 Exam Date/Time: 03/09/2025 08:20 Procedure: US HEAD NECK SOFT TISSUE Ordering Provider: RIOS NATHAN Reason For Exam: Localized swelling, mass and lump, neck EXAM TYPE: ULTRASOUND HEAD AND NECK SOFT TISSUE. CLINICAL INDICATION: Localized swelling, mass and lump, neck ADDITIONAL INFORMATION: None COMPARISON: None. LIMITATIONS: As below. COMPARISON: None. TECHNIQUE: Grayscale sonographic images were obtained of the right posterior neck. FINDINGS: Underlying the patient's area of palpable concern within the right posterior neck is a encapsulated lesion relatively hyperechoic to adjacent paraspinal musculature measuring 4.9 x 4.8 x 1.0 cm in size. No suspicious lymph nodes. No fluid collection. IMPRESSION: Solid lesion underlying the patient's area of palpable concern within the right posterior neck, likely represents a lipoma. No further follow-up recommended. Report Dictated on Electronically Signed By: Ralf Albert MD Electronically Signed Date/Time: 03/09/2025 3:18 PM EST [facility] Radiology Study observation (narrative) [facility] US Head and neck soft tissue Ordered By: Ralf Albert on 03-09-2025 [facility] Work Phone: OB Limited (No Biometrics)on 02-26-2025 OB Limited (No Biometrics) [facility] Imaging Services [address] [place] [address] [id number] OB Limited (No Biometrics) MR#: [id number] Acct: [id number] Name: MARIMAR MIRZA Rep #: [id number] : 2000 F 24 From: Virgil saba MD PCP: Care Physician,No Primary Status: REG CLI Study: OB Limited (No Biometrics) Date of Exam: 02/26 Exam# [id number] Ordering Dr: Rubin Aleman CNM PROCEDURE: OB LIMITED (NO BIOMETRICS) 02/26/2025 REASON FOR EXAM: PLACENTA LOCATION FOLLOW UP TECHNIQUE: Procedure Code: USOBL Modality: US Procedure: OB LIMITED (NO BIOMETRICS) COMPARISON: None FINDINGS Number: 1 Position: Vertex Placental Position: Posterior and not low-lying Placental Abnormalities: No evidence of previa. ESTIMATED GESTATIONAL AGE: Baseline: 28 weeks and 0 days ESTIMATED DATE OF DELIVERY: Baseline: May 21, 2025 BIOPHYSICAL ASSESSMENT: Amniotic Fluid Volume: 3.2 cm. Amniotic Fluid Index: Within normal limits. (8-24 cm normal range) Cardiac Motion: 141 beats per minute (average) Trunk and Limb Motion: Present. MATERNAL ANATOMY: Adnexa: Neither maternal ovary is successfully identified. Cervical Length (if measured): 3.3 cm US/OB Limited (No Biometrics) IMPRESSION: Posterior placenta. Not low-lying. Reading Location: [place] [address] CC: JAY JAY Aleman; No Primary Care Physician Data Coordinator: Signed Normal [facility] Absolute lymphocyte countOrd ered By: Tala Sauer on 02-16-2025 Lymphocytes Auto (Unsp spec) [#/Vol] 1.05 10*3/uL 0.83-4.51 [facility] Absolute neutrophil countOrd ered By: Tala Sauer on 02-16-2025 Neutrophils (Bld) [#/Vol] 5.0 10*3/uL 2.0-7.7 [facility] Automated lymphocyte count a s percentage of total leukocytesOrdered By: Tala Sauer on 02-16-2025 Lymphocytes/100 WBC Auto (Unsp spec) 15.9 % Low 19-41 [facility] Basophil percentageOrdered B y: Tala Sauer on 02-16-2025 Basophils/100 WBC (Bld) 0.8 % 0-1 [facility] CBC W/Diff, Automatedon 02-04 Absolute Lymph 1.05 X10 3/uL Normal 0.83-4.51 [facility] Comment on above: Performed By: #### L 501.0250, L509.8002, L3890.6006, L100.0100 #### [facility] [address] [place], [address] Absolute Neut 5.0 X10 3/uL Normal 2.0-7.7 [facility] Comment on above: Performed By: #### L 501.0250, L509.8002, L3890.6006, L100.0100 #### [facility] [address] [place], [address] Basophils/100 WBC (Bld) 0.8 % Normal 0-1 [facility] Comment on above: Performed By: #### L 501.0250, L509.8002, L3890.6006, L100.0100 #### [facility] [address] [place], [address] Eosinophils/100 WBC (Bld) 0.8 % Normal 0-5 [facility] Comment on above: Performed By: #### L 501.0250, L509.8002, L3890.6006, L100.0100 #### [facility] [address] [place], [address] Erythrocyte distribution width (RBC) [Ratio] 13.2 % Normal 11.6-14.6 [facility] Comment on above: Performed By: #### L 501.0250, L509.8002, L3890.6006, L100.0100 #### [facility] [address] [place], [address] Hematocrit (Bld) [Volume fraction] 39.6 % Normal 37-47 [facility] Comment on above: Performed By: #### L 501.0250, L509.8002, L3890.6006, L100.0100 #### [facility] [address] [place], [address] Hemoglobin (Bld) [Mass/Vol] 13.4 g/dL Normal 12.0-15.0 [facility] Comment on above: Performed By: #### L 501.0250, L509.8002, L3890.6006, L100.0100 #### [facility] [address] [place], [address] IG% 1.400 High 0.0-0.9 [facility] Comment on above: Result Comment: IG% - Immature Granulocytes (promyelocytes, myelocytes and metamyelocytes) > 1% indicates that a LEFT SHIFT is Present. Performed By: #### L 501.0250, L509.8002, L3890.6006, L100.0100 #### [facility] [address] [place], [address] Lymphocytes/100 WBC (Bld) 15.9 % Low 19-41 [facility] Comment on above: Performed By: #### L 501.0250, L509.8002, L3890.6006, L100.0100 #### [facility] [address] [place], [address] MCH (RBC) [Entitic mass] 31.8 pg Normal 27.0-32.0 [facility] Comment on above: Performed By: #### L 501.0250, L509.8002, L3890.6006, L100.0100 #### [facility] [address] [place], [address] MCHC (RBC) [Mass/Vol] 33.8 g/dL Normal 32-36 [facility] Comment on above: Performed By: #### L 501.0250, L509.8002, L3890.6006, L100.0100 #### [facility] [address] [place], [address] MCV (RBC) [Entitic vol] 93.8 fL Normal 81-99 [facility] Comment on above: Performed By: #### L 501.0250, L509.8002, L3890.6006, L100.0100 #### [facility] [address] [place], [address] Monocytes/100 WBC (Bld) 5.3 % Normal 0-10 [facility] Comment on above: Performed By: #### L 501.0250, L509.8002, L3890.6006, L100.0100 #### [facility] [address] [place], [address] Neutrophils/100 WBC (Bld) 75.8 % High 47-70 [facility] Comment on above: Performed By: #### L 501.0250, L509.8002, L3890.6006, L100.0100 #### [facility] [address] [place], [address] Nucleated RBC (Bld) [#/Vol] 0 10*3/uL Normal 0-5 [facility] Comment on above: Performed By: #### L 501.0250, L509.8002, L3890.6006, L100.0100 #### [facility] [address] [place], [address] Platelet mean volume (Bld) [Entitic vol] 12.1 fL High 6.2-12.0 [facility] Comment on above: Performed By: #### L 501.0250, L509.8002, L3890.6006, L100.0100 #### [facility] [address] [place], [address] Platelets (Bld) [#/Vol] 125 10*3/uL Low 150-450 [facility] Comment on above: Performed By: #### L 501.0250, L509.8002, L3890.6006, L100.0100 #### [facility] [address] [place], [address] RBC (Bld) [#/Vol] 4.22 10*6/uL Normal 4.2-5.4 [facility] Comment on above: Performed By: #### L 501.0250, L509.8002, L3890.6006, L100.0100 #### [facility] [address] [place], [address] RDW SD 45.0 fl High 35.1-43.9 [facility] Comment on above: Performed By: #### L 501.0250, L509.8002, L3890.6006, L100.0100 #### [facility] [address] [place], [address] WBC (Bld) [#/Vol] 6.6 10*3/uL Normal 4.4-11.0 [place] Comment on above: Performed By: #### L 501.0250, L509.8002, L3890.6006, L100.0100 #### [facility] [address] [place], [address] Eosinophil percentageOrdered By: Tala Sauer on 02-16-2025 Eosinophils/100 WBC (Bld) 0.8 % 0-5 [facility] Erythrocyte distribution wid th ratioOrdered By: Tala Sauer on 02-16-2025 Erythrocyte distribution width (RBC) [Ratio] 13.2 % 11.6-14.6 [facility] [facility] Erythrocyte distribution wid th standard deviationOrdered By: Tala Sauer on 02-16-2025 Erythrocyte distribution width (RBC) [Ratio] 45.0 fl High 35.1-43.9 [facility] Glucose Challenge Gest 1H 50 asuncion 02-16-2025 GLU GEST 50g 1H 131 mg/dL Normal 70-140 [facility] Comment on above: Performed By: #### L 501.0250, L509.8002, L3890.6006, L100.0100 #### [facility] [address] [place], [address] Glucose measurement at 2 celso rs post-dose gestational glucose tolerance testOrdered By: Tala Sauer on 02-16-2025 Glucose [Mass/Vol] 131 mg/dL 70-140 [place] HIVon 02-16-2025 HIV Non-Reactive Normal Nonreactive [facility] Comment on above: Result Comment: Non- Reactive Reactive Repeatedly reactive samples must be confirmed according to CDC recommended confirmatory algorithms. The subresults for either HIVAG or AHIV can be used as an aid in the selection of the confirmation algorithm for reactive samples. Send out specimens with Reactive results to [facility] for confirmation. Order the HIV antibody detection and differentiation: lc#[id number] Performed By: #### L 501.0250, L509.8002, L3890.6006, L100.0100 #### [facility] [address] [place], [address] Hematocrit Auto (Bld) [Volum e fraction]Ordered By: Tala Sauer on 02-16-2025 Hematocrit (Bld) [Volume fraction] 39.6 % 37-47 [facility] Hemoglobin measurementOrdere d By: Tala Sauer on 02-16-2025 Hemoglobin (Bld) [Mass/Vol] 13.4 g/dL 12.0-15.0 [facility] Immature granulocytes/100 WB C Auto (Bld)Ordered By: Tala Sauer on 02-16-2025 Immature granulocytes/100 WBC (Bld) 1.400 % High 0.0-0.9 [facility] Comment on above: IG% - Immature Granu locytes (promyelocytes, myelocytes and metamyelocytes) > 1% indicates that a LEFT SHIFT is Present. Laboratory - Chemistry and C hemistry - challengeOrdered By: Shanae Figueroa on 02-16-2025 Glucose Ql (U) Negative [facility] - UrinalysisOrder ed By: Shanae Figueroa on 02-16-2025 Protein Ql (U) Negative [facility] MCV (mean corpuscular volume ) determinationOrdered By: Tala Sauer on 02-16-2025 MCV (RBC) [Entitic vol] 93.8 fL 81-99 [facility] Mean corpuscular hemoglobin (MCH) determinationOrdered By: Tala Sauer on 02-16-2025 MCH (RBC) [Entitic mass] 31.8 pg 27.0-32.0 [facility] Mean corpuscular hemoglobin concentration (MCHC) determinationOrdered By: Tala Sauer on 02-16-2025 MCHC (RBC) [Mass/Vol] 33.8 g/dL 32-36 [facility] Mean platelet volume determi nationOrdered By: Tala Sauer on 02-16-2025 Platelet mean volume (Bld) [Entitic vol] 12.1 fL High 6.2-12.0 [facility] Monocyte percentageOrdered B y: Tala Sauer on 02-16-2025 Monocytes/100 WBC (Bld) 5.3 % 0-10 [facility] Neutrophil percentageOrdered By: Tala Sauer on 02-16-2025 Neutrophils/100 WBC (Bld) 75.8 % High 47-70 [facility] No Panel InformationOrdered By: Tala Sauer on 02-16-2025 HIV (1&2) Antibody Non-Reactive Nonreactive [facility] Comment on above: Non-ReactiveReactive Repeatedly reactive samples must be confirmed according to CDC recommended confirmatory algorithms. The subresults for either HIVAG or AHIV can be used as an aid in the selection of the confirmation algorithm for reactive samples.Send out specimens with Reactive results to [facility] for confirmation.Order the HIV antibody detection and differentiation: #[id number] Nucleated red blood cell per centageOrdered By: Tala Sauer on 02-16-2025 Nucleated RBC/100 WBC (Bld) [Ratio] 0 % 0-5 [facility] Segment Assembler Office Visit Reporton 02-16-2025 Segment Assembler Office Visit Report [facility] [address], [address] [place] [address] OFFICE VISIT Date of Service: 02/16/25 MR#: [id number] Acct: [id number] Name: MARIMAR MIRZA Rep #: [id number] : 2000 Provider: COSME koch Age/Sex: 24/F Location: [facility] Status: Signed Intake Vital Signs 12/25/24 10:16 01/22/25 10:43 02/16/25 08:45 Height 5 ft 6 in 5 ft 6 in 5 ft 6 in Weight: 137 lb 1 oz BMI 22.1 BP 88/54 L Intake Visit Reasons: 27 WK OB/GLUCOSE Utilities Ground Worker Required: No Is patient in pain?: No Allergies No Known Allergies Allergy (Verified 02/16/25 08:42) Medications ???Medication ???Instructions ???Recorded ???Confirmed ???Type acetaminophen 500 mg tablet 1,000 mg (2 x 500 mg) PO Q6H PRN 1 02/16/25 Rx PRN Pain 1-10 Or Fever #0 tabs multivit-min no.71-iron fum 28 cap PO 10/10/24 02/16/25 History mg-folate no.1 1 mg-dha 300 mg capsule (PNV-[place]) Last Menstrual Period: 08/14/24 Zika: Zika virus screening: Negative : Yes PFSH PFSH Surgical History History of mandibular surgery Family History Grandmother Colon cancer, Onset Age: 84 Paternal Social History adopted: No household members: spouse and children housing: house number of children: 2 current occupational status: employed 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 current occupational exposures/hazards: No pets and animals: No history of recent travel: Yes ([place]- September) out of state: Yes out of country: No sexually active: Yes Smoking Status: Never smoker alcohol intake: current alcohol intake frequency: holidays/special occasions only details: Not while substance use type: does not use well-balanced diet: daily or most days caffeine: No eating out: 1-3 times/week during the past year weight has: remained stable what type of physical activity do you participate in: walking and running frequency: daily duration: 30-45 minutes/day davide/shinto: Alevism seatbelt use: always do you feel safe at home: Yes 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 Date Name GA/Weeks Outcome Route Bth Weight Gen Labor Lgth Anesthesia Del Locatn Provider FOB 07/19/19 ADOPTED- [facility] 02/18/23 Indie 39 live - full term 7# Female epidural [facility] Dr. Rinku Calderon Delivery Date: 02/18/23 Last Updated by: My Pagan subchorionic hemorrhage 1st trimester HPI 27 WK OB/GLUCOSE Details: MARIMAR MIRZA is a 24 year old who presents for routine OB visit. OB Visit BILL Calculator Estimated Delivery Date Method Current WG Current Estimate 05/21/25 LMP (Certain) 26w 4d Expected Delivery Route/Plan Labor Preferences- CB/BF classes: no labor support person: Fan labor intervention preferences: [] pain management options preferred: epidural cut cord/dad catch: no : yes PP control planned: discussed discussed possible routes of delivery and associated risks: [] special requests: [] Specific Issue/Plans Covid status: [] Flu vaccine: declines Tdap vaccine: [] Rhogam: NA LARC form signed: yes Problem list reviewed and updated with the most current plan of care details and appropriate orders placed. Relevant counseling for the gestational age provided. Continue routine care and follow up unless otherwise noted in visit notes/problem list details Initial Weight: Not Recorded Date -???-???-???-???-??? -???-???-???-???-??? -???-???- EGA Weight BP Urine Prot -???-???-???-???-??? -???-???-???-???-??? -???-???- Glucose FHR FuHt Pres Dilation -???-???-???-???-??? -???-???-???-???-??? -???-???- Effaced St Visit Note 10/20/24 -???-???-???-???-??? -???-???-???-???-??? -???-???- 9w 4d 125 lb 8 oz 96/54 -???-???-???-???-??? -???-???-???-???-??? -???-???- 160 -???-???-???-???-??? -???-???-???-???-??? -???-???- SM- CRL 3 co ns cm with LMP 11/27/24 -???-???-???-???-??? -???-???-???-???-??? -???-???- 15w 0d 128 lb 4 oz 104/63 -???-???-???-???-??? -???-???-???-???-??? -???-???- 155 -???-???-???-???-??? -???-???-???-???-??? -???-???- KW- no vb/cr amping. US ordered. compression hose for varicose veins 12/25/24 -???-???-???-???-??? -???-???-???-???-??? -???-???- 19w 0d 132 lb 9 oz 94/54 Negative -???-???-???-???-??? -???-???-???-???-??? -???-???- Negative 150 -???-???-???-???-??? -???-???-???-???-??? (more content not included)... Normal [facility] Platelet countOrdered By: Nishant Sauer on 02-16-2025 Platelets (Bld) [#/Vol] 125 10*3/uL Low 150-450 [facility] RBC Auto (Bld) [#/Vol]Ordere d By: Tala Sauer on 02-16-2025 RBC (Bld) [#/Vol] 4.22 10*6/uL 4.2-5.4 [facility] Syphilis Antibodieson 2024 Syphilis Abs Non-Reactive Normal Nonreactive [facility] Comment on above: Performed By: #### L 501.0250, L509.8002, L3890.6006, L100.0100 #### [facility] [address] [place], [address] White blood cell (WBC) count Ordered By: Tala Sauer on 02-16-2025 WBC (Bld) [#/Vol] 6.6 10*3/uL 4.4-11.0 [place] [facility] - Chemistry and C hemistry - challengeOrdered By: Tala Sauer on 01-22-2025 Glucose Ql (U) Negative [facility] - UrinalysisOrder ed By: Tala Sauer on 01-22-2025 Protein Ql (U) Negative [facility] Segment Assembler Office Visit Reporton 01-22-2025 Segment Assembler Office Visit Report [facility]'[address], [address] [place] [address] OFFICE VISIT Date of Service: 01/22/25 MR#: [id number] Acct: [id number] Name: MARIMAR MIRZA Rep #: [id number] : 2000 Provider: Dr. Tala Baker DO Age/Sex: 24/F Location: [facility] Status: Signed Intake Vital Signs 11/27/24 11:24 12/25/24 10:16 01/22/25 10:38 01/22/25 10:43 Height 5 ft 6 in 5 ft 6 in 5 ft 6 in 5 ft 6 in Weight: 136 lb 6 oz BMI 22.0 BP 99/58 L Intake Visit Reasons: 23wk ob Chief Complaint: 23 Week OB Utilities Ground Worker Required: No Is patient in pain?: No Allergies No Known Allergies Allergy (Verified 01/22/25 10:37) Medications ???Medication ???Instructions ???Recorded ???Confirmed ???Type acetaminophen 500 mg tablet 1,000 mg (2 x 500 mg) PO Q6H PRN 1 01/22/25 Rx PRN Pain 1-10 Or Fever #0 tabs multivit-min no.71-iron fum 28 cap PO 10/10/24 01/22/25 History mg-folate no.1 1 mg-dha 300 mg capsule (PNV-[place]) Last Menstrual Period: 08/14/24 Zika: Zika virus screening: Negative : No Have you fallen in the past year?: No PFSH PFSH Surgical History History of mandibular surgery Family History Grandmother Colon cancer, Onset Age: 84 Paternal Social History adopted: No household members: spouse and children housing: house number of children: 2 current occupational status: employed 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 current occupational exposures/hazards: No pets and animals: No history of recent travel: Yes ([place]- September) out of state: Yes out of country: No sexually active: Yes Smoking Status: Never smoker alcohol intake: current alcohol intake frequency: holidays/special occasions only details: Not while substance use type: does not use well-balanced diet: daily or most days caffeine: No eating out: 1-3 times/week during the past year weight has: remained stable what type of physical activity do you participate in: walking and running frequency: daily duration: 30-45 minutes/day davide/shinto: Alevism seatbelt use: always do you feel safe at home: Yes 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 Date Name GA/Weeks Outcome Route Bth Weight Gen Labor Lgth Anesthesia Del Locatn Provider FOB 07/19/19 ADOPTED- [facility] 02/18/23 Indie 39 live - full term 7# Female epidural [facility] Dr. Rinku Calderon Delivery Date: 02/18/23 Last Updated by: My Pagan subchorionic hemorrhage 1st trimester HPI 23wk ob Details: MARIMAR MIRZA is a 24 year old who presents for routine OB visit. OB Visit BILL Calculator Estimated Delivery Date Method Current WG Current Estimate 05/21/25 LMP (Certain) 23w 0d Expected Delivery Route/Plan Labor Preferences- CB/BF classes: [] labor support person: [] labor intervention preferences: [] pain management options preferred: [] cut cord/dad catch: [] : [] PP control planned: [] discussed possible routes of delivery and associated risks: [] special requests: [] Specific Issue/Plans Covid status: [] Flu vaccine: [] Tdap vaccine: [] Rhogam: [] LARC form signed: [] Problem list reviewed and updated with the most current plan of care details and appropriate orders placed. Relevant counseling for the gestational age provided. Continue routine care and follow up unless otherwise noted in visit notes/problem list details Initial Weight: Not Recorded Date -???-???-???-???-??? -???-???-???-???-??? -???-???- EGA Weight BP Urine Prot -???-???-???-???-??? -???-???-???-???-??? -???-???- Glucose FHR FuHt Pres Dilation -???-???-???-???-??? -???-???-???-???-??? -???-???- Effaced St Visit Note 10/20/24 -???-???-???-???-??? -???-???-???-???-??? -???-???- 9w 4d 125 lb 8 oz 96/54 -???-???-???-???-??? -???-???-???-???-??? -???-???- 160 -???-???-???-???-??? -???-???-???-???-??? -???-???- SM- CRL 3 co ns cm with LMP 11/27/24 -???-???-???-???-??? -???-???-???-???-??? -???-???- 15w 0d 128 lb 4 oz 104/63 -???-???-???-???-??? -???-???-???-???-??? -???-???- 155 -???-???-???-???-??? -???-???-???-???-??? -???-???- KW- no vb/cr amping. US ordered. compression hose for varicose veins 12/25/24 -???-???-???-???-??? -???-???-???-???-??? -???-???- 19w 0d 132 lb 9 oz 94/54 Negative -???-???-???-???-??? -???-???-???-???-??? -?? (more content not included)... Normal [facility] - Chemistry and C hemistry - challengeOrdered By: Laurie Cordero on 12-25-2024 Glucose Ql (U) Negative [facility] - UrinalysisOrder ed By: Laurie Cordero on 12-25-2024 Protein Ql (U) Negative [facility] Segment Assembler Office Visit Reporton 12-25-2024 Segment Assembler Office Visit Report [facility]'s [address], [address] [place] [address] OFFICE VISIT Date of Service: 12/25/24 MR#: [id number] Acct: [id number] Name: MARIMAR MIRZA Rep #: [id number] : 2000 Provider: Dr. Laurie campa MD Age/Sex: 24/F [place] [facility] Status: Signed Intake Vital Signs 10/20/24 15:14 11/27/24 11:24 12/25/24 10:14 12/25/24 10:16 Height 5 ft 6 in 5 ft 6 in 5 ft 6 in 5 ft 6 in Weight: 132 lb 9 oz BMI 21.4 BP 94/54 L Intake Visit Reasons: 18 wk ob Utilities Ground Worker Required: No Is patient in pain?: No Allergies No Known Allergies Allergy (Verified 12/25/24 10:13) Medications ???Medication ???Instructions ???Recorded ???Confirmed ???Type acetaminophen 500 mg tablet 1,000 mg (2 x 500 mg) PO Q6H PRN 1 12/25/24 Rx PRN Pain 1-10 Or Fever #0 tabs multivit-min no.71-iron fum 28 cap PO 10/10/24 12/25/24 History mg-folate no.1 1 mg-dha 300 mg capsule (PNV-[place]) Last Menstrual Period: 08/14/24 Zika: Zika virus screening: Negative : No PFSH PFSH Surgical History History of mandibular surgery Family History Grandmother Colon cancer, Onset Age: 84 Paternal Social History adopted: No household members: spouse and children housing: house number of children: 2 current occupational status: employed 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 current occupational exposures/hazards: No pets and animals: No history of recent travel: Yes (OR- May) out of state: Yes out of country: No sexually active: Yes Smoking Status: Never smoker alcohol intake: current alcohol intake frequency: holidays/special occasions only details: Not while substance use type: does not use well-balanced diet: daily or most days caffeine: No eating out: 1-3 times/week during the past year weight has: remained stable what type of physical activity do you participate in: walking and running frequency: daily duration: 30-45 minutes/day davide/shinto: Alevism seatbelt use: always do you feel safe at home: Yes 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 Date Name GA/Weeks Outcome Route Bth Weight Gen Labor Lgth Anesthesia Del Locatn Provider FOB 07/19/19 ADOPTED- [facility] 02/18/23 Indie 39 live - full term 7# Female epidural [facility] Dr. Rinku Calderon Delivery Date: 02/18/23 Last Updated by: My Pagan subchorionic hemorrhage 1st trimester HPI 18 wk ob Details: MARIMAR MIRZA is a 24 year old who presents for routine OB visit. OB Visit BILL Calculator Estimated Delivery Date Method Current WG Current Estimate 05/21/25 LMP (Certain) 19w 0d Expected Delivery Route/Plan Labor Preferences- CB/BF classes: [] labor support person: [] labor intervention preferences: [] pain management options preferred: [] cut cord/dad catch: [] : [] PP control planned: [] discussed possible routes of delivery and associated risks: [] special requests: [] Specific Issue/Plans Covid status: [] Flu vaccine: [] Tdap vaccine: [] Rhogam: [] LARC form signed: [] Problem list reviewed and updated with the most current plan of care details and appropriate orders placed. Relevant counseling for the gestational age provided. Continue routine care and follow up unless otherwise noted in visit notes/problem list details Initial Weight: Not Recorded Date -???-???-???-???-??? -???-???-???-???-??? -???-???- EGA Weight BP Urine Prot -???-???-???-???-??? -???-???-???-???-??? -???-???- Glucose FHR FuHt Pres Dilation -???-???-???-???-??? -???-???-???-???-??? -???-???- Effaced St Visit Note 10/20/24 -???-???-???-???-??? -???-???-???-???-??? -???-???- 9w 4d 125 lb 8 oz 96/54 -???-???-???-???-??? -???-???-???-???-??? -???-???- 160 -???-???-???-???-??? -???-???-???-???-??? -???-???- SM- CRL 3 co ns cm with LMP 11/27/24 -???-???-???-???-??? -???-???-???-???-??? -???-???- 15w 0d 128 lb 4 oz 104/63 -???-???-???-???-??? -???-???-???-???-??? -???-???- 155 -???-???-???-???-??? -???-???-???-???-??? -???-???- KW- no vb/cr amping. US ordered. compression hose for varicose veins 12/25/24 -???-???-???-???-??? -???-???-???-???-??? -???-???- 19w 0d 132 lb 9 oz 94/54 Negative -???-???-???-???-??? -???-???-???-???-??? -???-???- Negative 150 -???-???-???-???-??? -???-???-???-???-??? -???-???- SM- (more content not included)... Normal [facility] Segment Assembler Office Visit Reporton 11-27-2024 Segment Assembler Office Visit Report [facility]'s [address], [address] [place] [address] OFFICE VISIT Date of Service: 11/27/24 MR#: [id number] Acct: [id number] Name: MARIMAR MIRZA Rep #: [id number] : 2000 Provider: JAY JAY [place] Age/Sex: 24/F Location: [facility] Status: Signed Intake Vital Signs 09/25/24 08:47 10/20/24 15:14 11/27/24 11:21 11/27/24 11:24 Height 5 ft 6 in 5 ft 6 in 5 ft 6 in 5 ft 6 in Weight: 128 lb 4 oz BMI 20.7 BP 104/63 Intake Visit Reasons: 14wks ob Chief Complaint: 14wk OB Utilities Ground Worker Required: No Is patient in pain?: No Allergies No Known Allergies Allergy (Verified 11/27/24 11:20) Medications ???Medication ???Instructions ???Recorded ???Confirmed ???Type acetaminophen 500 mg tablet 1,000 mg (2 x 500 mg) PO Q6H PRN 1 11/27/24 Rx PRN Pain 1-10 Or Fever #0 tabs multivit-min no.71-iron fum 28 cap PO 10/10/24 11/27/24 History mg-folate no.1 1 mg-dha 300 mg capsule (PNV-[place]) Last Menstrual Period: 08/14/24 : No PFSH PFSH Surgical History History of mandibular surgery Family History Grandmother Colon cancer, Onset Age: 84 Paternal Social History adopted: No household members: spouse and children housing: house number of children: 2 current occupational status: employed 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 current occupational exposures/hazards: No pets and animals: No history of recent travel: Yes ([place]- May) out of state: Yes out of country: No sexually active: Yes Smoking Status: Never smoker alcohol intake: current alcohol intake frequency: holidays/special occasions only details: Not while substance use type: does not use well-balanced diet: daily or most days caffeine: No eating out: 1-3 times/week during the past year weight has: remained stable what type of physical activity do you participate in: walking and running frequency: daily duration: 30-45 minutes/day davide/shinto: Alevism seatbelt use: always do you feel safe at home: Yes 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 Date Name GA/Weeks Outcome Route Bth Weight Gen Labor Lgth Anesthesia Del Locatn Provider FOB 07/19/19 ADOPTED- [facility] 02/18/23 Indie 39 live - full term 7# Female epidural [facility] Dr. Rinku Calderon Delivery Date: 02/18/23 Last Updated by: My Pagan subchorionic hemorrhage 1st trimester HPI 14wks ob Details: MARIMAR MIRZA is a 24 year old who presents for routine OB visit. OB Visit BILL Calculator Estimated Delivery Date Method Current WG Current Estimate 05/21/25 LMP (Certain) 15w 0d Expected Delivery Route/Plan Labor Preferences- CB/BF classes: [] labor support person: [] labor intervention preferences: [] pain management options preferred: [] cut cord/dad catch: [] : [] PP control planned: [] discussed possible routes of delivery and associated risks: [] special requests: [] Specific Issue/Plans Covid status: [] Flu vaccine: [] Tdap vaccine: [] Rhogam: [] LARC form signed: [] Problem list reviewed and updated with the most current plan of care details and appropriate orders placed. Relevant counseling for the gestational age provided. Continue routine care and follow up unless otherwise noted in visit notes/problem list details Initial Weight: Not Recorded Date -???-???-???-???-??? -???-???-???-???-??? -???-???- EGA Weight BP Urine Prot -???-???-???-???-??? -???-???-???-???-??? -???-???- Glucose FHR FuHt Pres Dilation -???-???-???-???-??? -???-???-???-???-??? -???-???- Effaced St Visit Note 10/20/24 -???-???-???-???-??? -???-???-???-???-??? -???-???- 9w 4d 125 lb 8 oz 96/54 -???-???-???-???-??? -???-???-???-???-??? -???-???- 160 -???-???-???-???-??? -???-???-???-???-??? -???-???- SM- CRL 3 co ns cm with LMP 11/27/24 -???-???-???-???-??? -???-???-???-???-??? -???-???- 15w 0d 128 lb 4 oz 104/63 -???-???-???-???-??? -???-???-???-???-??? -???-???- 155 -???-???-???-???-??? -???-???-???-???-??? -???-???- KW- no vb/cr amping. US ordered. compression hose for varicose veins ACOG First Trimester First Trimester: Desire for , Alcohol, Tobacco Cessation, Illicit/Recreational Drug/Substance Use, Intimate Partner Violence, Barriers to care, Unstable Housing, Communication Barriers, Environmental/Work Hazards, Anti (more content not included)... Normal [facility] Chlamydia/GC ANALY aptimaon CHLAMY,NUC ACID Negative Normal Negative [facility] Comment on above: Performed By: #### L 7000.1800, L7400.0353 ####[facility] [id number] [place], [place], [id number] GC BY NUC ACID Negative Normal Negative [facility] Comment on above: Result Comment: Perf ormed at: =G - [facility] [address], [place] [id number] Cruller Maker: Siomara Duarte MD, Phone: [phone] Performed By: #### L 7000.1800, L7400.0353 ####[facility] [id number] [place], [place], [id number] PAP I-G w/rfx hrHPV-Aptimaon 10-23-2024 ADEQ Comment Normal . [facility] Comment on above: Order Comment: Speci men Comment: [id number] Comment: No. of containers..01 ThinPrep Vial Result Comment: Sati sfactory for evaluation. Endocervical and/or squamous metaplastic cells (endocervical component) are present. Performed By: #### L 7000.1800, L7400.0353 ####[facility] [id number] [place], [place], [id number] COMM . Normal . [facility] Comment on above: Order Comment: Specyenni mazariegos Comment: [id number] Comment: No. of containers..01 ThinPrep Vial Performed By: #### L 7000.1800, L7400.0353 ####[facility] [address] [place], [address] COMMENT Comment Normal . [facility] Comment on above: Order Comment: Speci men Comment: [id number] Comment: No. of containers..01 ThinPrep Vial Result Comment: This liquid based ThinPrep(R) pap test was screened with the use of an image guided system. Performed By: #### L 7000.1800, L7400.0353 ####[facility] [address] [place], [place], [phone] DIAG Comment Normal . [facility] Comment on above: Order Comment: Speci men Comment: [id number] Comment: No. of containers..01 ThinPrep Vial Result Comment: NEGA TIVE FOR INTRAEPITHELIAL LESION OR MALIGNANCY. Performed By: #### L 7000.1800, L7400.0353 ####[facility] [address] [place], [place], [phone] HPV RFLX Comment Normal . [facility] Comment on above: Order Comment: Speci men Comment: [id number] Comment: No. of containers..01 ThinPrep Vial Result Comment: The HPV DNA reflex criteria were not met with this specimen result therefore, no HPV testing was performed. Performed at: - [address] [id number] Cruller Maker: Siomara Duarte MD, Phone: [phone] Performed By: #### L 7000.1800, L7400.0353 ####[facility] [address] [place], [place], [phone] PAPSMR Comment Normal . [facility] Comment on above: Order Comment: Speci men Comment: [id number] Comment: No. of containers..01 ThinPrep Vial Result Comment: The Pap smear is a screening test designed to aid in the detection of premalignant and malignant conditions of the uterine cervix. It is not a diagnostic procedure and should not be used as the sole means of detecting cervical cancer. Both false-positive and false-negative reports do occur. Performed By: #### L 7000.1800, L7400.0353 ####[facility] [address] [place], [place], [id number] PERFORM Comment Normal . [facility] Comment on above: Order Comment: Speci men Comment: [id number] Comment: No. of containers..01 ThinPrep Vial Result Comment: Raven Trinidad, Turf And Grounds Supervisor (ASCP) Performed By: #### L 7000.1800, L7400.0353 ####[facility] [address] [place], [place], [phone] Urine Cultureon 10-22-2024 URC Mixed Gram Positive Organisms Bethel Count 11,000-25,000 MIXC Mixed contaminants. Submit a new specimen if indicated. Normal [facility] Comment on above: Performed By: #### M 100.2200 #### [facility] [address] [place], [place], [phone] ABORh Blood Type, Patienton 10-20-2024 ABO and Rh group Nom (Bld) Blood group A Rh(D) positive Normal [facility] Comment on above: Order Comment: PN Performed By: #### L 100.0100, Z95386-1, L3890.6301, BTS, L3890.6102, L3890.6006, L509.8002, BtABORH, L509.4006 ####[facility] [address] [place], [place], [phone] Absolute lymphocyte countOrd ered By: Laurie Cordero on 10-20-2024 Lymphocytes Auto (Unsp spec) [#/Vol] 1.53 10*3/uL 0.83-4.51 [facility] Absolute neutrophil countOrd ered By: Laurie Cordero on 10-20-2024 Neutrophils (Bld) [#/Vol] 5.5 10*3/uL 2.0-7.7 [facility] Automated lymphocyte count a s percentage of total leukocytesOrdered By: Laurie Cordero on 10-20-2024 Lymphocytes/100 WBC Auto (Unsp spec) 19.8 % 19-41 [facility] Basophil percentageOrdered B y: Laurie Cordero on 10-20-2024 Basophils/100 WBC (Bld) 0.6 % 0-1 [facility] CBC W/Diff, Automatedon 10-05 Absolute Lymph 1.53 X10 3/uL Normal 0.83-4.51 [facility] Comment on above: Performed By: #### L 100.0100, S58682-6, L3890.6301, BTS, L3890.6102, L3890.6006, L509.8002, BtABORH, L509.4006 #### [facility] [address] [place], [address] Absolute Neut 5.5 X10 3/uL Normal 2.0-7.7 [facility] Comment on above: Performed By: #### L 100.0100, B73431-3, L3890.6301, BTS, L3890.6102, L3890.6006, L509.8002, BtABORH, L509.4006 #### [facility] [address] [place], [address] Basophils/100 WBC (Bld) 0.6 % Normal 0-1 [facility] Comment on above: Performed By: #### L 100.0100, Z04187-6, L3890.6301, BTS, L3890.6102, L3890.6006, L509.8002, BtABORH, L509.4006 #### [facility] [address] [place], [address] Eosinophils/100 WBC (Bld) 1.3 % Normal 0-5 [facility] Comment on above: Performed By: #### L 100.0100, D31455-0, L3890.6301, BTS, L3890.6102, L3890.6006, L509.8002, BtABORH, L509.4006 #### [facility] [address] [place], [address] Erythrocyte distribution width (RBC) [Ratio] 12.9 % Normal 11.6-14.6 [facility] Comment on above: Performed By: #### L 100.0100, C46494-1, L3890.6301, BTS, L3890.6102, L3890.6006, L509.8002, BtABORH, L509.4006 #### [facility] [address] [place], [address] Hematocrit (Bld) [Volume fraction] 38.2 % Normal 37-47 [facility] Comment on above: Performed By: #### L 100.0100, V62953-8, L3890.6301, BTS, L3890.6102, L3890.6006, L509.8002, BtABORH, L509.4006 #### [facility] [address] [place], [address] Hemoglobin (Bld) [Mass/Vol] 13.3 g/dL Normal 12.0-15.0 [facility] Comment on above: Performed By: #### L 100.0100, C36344-9, L3890.6301, BTS, L3890.6102, L3890.6006, L509.8002, BtABORH, L509.4006 #### [facility] [address] [place], [address] IG% 0.400 Normal 0.0-0.9 [facility] Comment on above: Result Comment: IG% - Immature Granulocytes (promyelocytes, myelocytes and metamyelocytes) > 1% indicates that a LEFT SHIFT is Present. Performed By: #### L 100.0100, F40210-9, L3890.6301, BTS, L3890.6102, L3890.6006, L509.8002, BtABORH, L509.4006 #### [facility] [address] [place], [address] Lymphocytes/100 WBC (Bld) 19.8 % Normal 19-41 [facility] Comment on above: Performed By: #### L 100.0100, L26013-1, L3890.6301, BTS, L3890.6102, L3890.6006, L509.8002, BtABORH, L509.4006 #### [facility] [address] [place], [address] MCH (RBC) [Entitic mass] 31.6 pg Normal 27.0-32.0 [facility] Comment on above: Performed By: #### L 100.0100, Q11438-0, L3890.6301, BTS, L3890.6102, L3890.6006, L509.8002, BtABORH, L509.4006 #### [facility] [address] [place], [address] MCHC (RBC) [Mass/Vol] 34.8 g/dL Normal 32-36 [facility] Comment on above: Performed By: #### L 100.0100, Q83198-9, L3890.6301, BTS, L3890.6102, L3890.6006, L509.8002, BtABORH, L509.4006 #### [facility] [address] [place], [address] MCV (RBC) [Entitic vol] 90.7 fL Normal 81-99 [facility] Comment on above: Performed By: #### L 100.0100, G97263-1, L3890.6301, BTS, L3890.6102, L3890.6006, L509.8002, BtABORH, L509.4006 #### [facility] [address] [place], [address] Monocytes/100 WBC (Bld) 6.1 % Normal 0-10 [facility] Comment on above: Performed By: #### L 100.0100, X99895-0, L3890.6301, BTS, L3890.6102, L3890.6006, L509.8002, BtABORH, L509.4006 #### [facility] [address] [place], [address] Neutrophils/100 WBC (Bld) 71.8 % High 47-70 [facility] Comment on above: Performed By: #### L 100.0100, I41339-4, L3890.6301, BTS, L3890.6102, L3890.6006, L509.8002, BtABORH, L509.4006 #### [facility] [address] [place], [address] Nucleated RBC (Bld) [#/Vol] 0 10*3/uL Normal 0-5 [facility] Comment on above: Performed By: #### L 100.0100, E89149-9, L3890.6301, BTS, L3890.6102, L3890.6006, L509.8002, BtABORH, L509.4006 #### [facility] [address] [place], [address] Platelet mean volume (Bld) [Entitic vol] 12.6 fL High 6.2-12.0 [facility] Comment on above: Performed By: #### L 100.0100, G90693-8, L3890.6301, BTS, L3890.6102, L3890.6006, L509.8002, BtABORH, L509.4006 #### [facility] [address] [place], [address] Platelets (Bld) [#/Vol] 160 10*3/uL Normal 150-450 [facility] Comment on above: Performed By: #### L 100.0100, Z16551-2, L3890.6301, BTS, L3890.6102, L3890.6006, L509.8002, BtABORH, L509.4006 #### [facility] [address] [place], [address] RBC (Bld) [#/Vol] 4.21 10*6/uL Normal 4.2-5.4 [facility] Comment on above: Performed By: #### L 100.0100, P91784-9, L3890.6301, BTS, L3890.6102, L3890.6006, L509.8002, BtABORH, L509.4006 #### [facility] [address] [place], [address] RDW SD 42.4 fl Normal 35.1-43.9 [facility] Comment on above: Performed By: #### L 100.0100, R19302-8, L3890.6301, BTS, L3890.6102, L3890.6006, L509.8002, BtABORH, L509.4006 #### [facility] [address] [place], [address] WBC (Bld) [#/Vol] 7.7 10*3/uL Normal 4.4-11.0 [facility] Comment on above: Performed By: #### L 100.0100, C84742-1, L3890.6301, BTS, L3890.6102, L3890.6006, L509.8002, BtABORH, L509.4006 #### [facility] [address] [place], [address] Cervical or vagninal specime n microscopic examination by cytology stain (reported asOrdered By: Laurie Cordero on 10-20-2024 Cytology report Cyto stain Doc (Cvx/Vag) Comment . [facility] Comment on above: The Pap smear is a s creening test designed to aid in thedetection of premalignant and malignant conditions of theuterine cervix. It is not a diagnostic procedure andshould not be used as the sole means of detecting cervicalcancer. Both false-positive and false-negative reports dooccur. Chlamydia trachomatis rRNA d etection by probe and target amplification methodOrdered By: Laurie Cordero on 10-20-2024 C. trachomatis rRNA ANALY+probe Ql (Unsp spec) Negative Negative [facility] Eosinophil percentageOrdered By: Laurie Cordero on 10-20-2024 Eosinophils/100 WBC (Bld) 1.3 % 0-5 [facility] Erythrocyte distribution wid th ratioOrdered By: Laurie Cordero on 10-20-2024 Erythrocyte distribution width (RBC) [Ratio] 12.9 % 11.6-14.6 [facility] Erythrocyte distribution wid th standard deviationOrdered By: Laurie Cordero on 10-20-2024 Erythrocyte distribution width (RBC) [Ratio] 42.4 fl 35.1-43.9 [facility] HIVon 10-20-2024 HIV Non-Reactive Normal Nonreactive [facility] Comment on above: Result Comment: Non- Reactive Reactive Repeatedly reactive samples must be confirmed according to CDC recommended confirmatory algorithms. The subresults for either HIVAG or AHIV can be used as an aid in the selection of the confirmation algorithm for reactive samples. Send out specimens with Reactive results to [facility] for confirmation. Order the HIV antibody detection and differentiation: lc#[id number] Performed By: #### L 100.0100, Y23510-3, L3890.6301, BTS, L3890.6102, L3890.6006, L509.8002, BtABORH, L509.4006 ####[facility] [address] [place], [place], [phone] Hematocrit Auto (Bld) [Volum e fraction]Ordered By: Laurie Cordero on 10-20-2024 Hematocrit (Bld) [Volume fraction] 38.2 % 37-47 [facility] Hemoglobin measurementOrdere d By: Laurie Cordero on 10-20-2024 Hemoglobin (Bld) [Mass/Vol] 13.3 g/dL 12.0-15.0 [facility] Hepatitis C Antibodyon 10-20 Hepatitis C Ab Non-Reactive Normal Nonreactive [facility] Comment on above: Result Comment: Reac tive: Presumptive evidence of antibodies to HCV. Follow CDC recommendations for supplemental testing. Non-Reactive: Antibodies to HCV were not detected; does not exclude the possibility of exposure to HCV Reactive Results are presumptive evidence of antibodies to HCV. Follow CDC recommendations for supplemental testing. Order confirmation testing: HCV Quant by PCR testing - HCVPCR #[id number] Non Reactive: < 0.8 Equivocal: >/= 0.8 to < 1.0 Reactive: >/= 1.0 The [facility] requires that a reactive/equivocal HCV antibody result be sent out for confirmation. HCV Quant by PCR testing. Performed By: #### L 100.0100, M75983-7, L3890.6301, BTS, L3890.6102, L3890.6006, L509.8002, BtABORH, L509.4006 ####[facility] [address] [place], [place], [phone] Immature granulocytes/100 WB C Auto (Bld)Ordered By: Laurie Cordero on 10-20-2024 Immature granulocytes/100 WBC (Bld) 0.400 % 0.0-0.9 [facility] Comment on above: IG% - Immature Granu locytes (promyelocytes, myelocytes and metamyelocytes) > 1% indicates that a LEFT SHIFT is Present. L3890.6102on 10-20-2024 HEP B Surf Ag Non-Reactive Normal Nonreactive [facility] Comment on above: Result Comment: Reac tive: Presumptive evidence of HBV. Repeatedly reactive samples must be confirmed using a neutralization test ([employer] HBsAg Confirmatory Test) Non-Reactive: HBsAg not detected; does not exclude the possibility of exposure to HBV Performed By: #### L 100.0100, F28956-1, L3890.6301, BTS, L3890.6102, L3890.6006, L509.8002, BtABORH, L509.4006 ####[facility] [address] [place], [place], [id number] L509.4006on 10-20-2024 Rubella IgG REAC Normal Nonreactive [facility] Comment on above: Result Comment: Anti body Result: Interpretation Non-Reactive: Non-Immune Reactive: Immune The following results were obtained with the [employer] Rubella IgG assay. Results from assays of other manufacturers cannot be used interchangeably. Performed By: #### L 100.0100, C77408-9, L3890.6301, BTS, L3890.6102, L3890.6006, L509.8002, BtABORH, L509.4006 #### [facility] [address] [place], [place], [phone] Laboratory - CytologyOrdered By: Laurie Cordero on 10-20-2024 Turf And Grounds Supervisor Cyto stain Nom (Cvx/Vag) [ID] Comment . [facility] Comment on above: Roshni Dyson (ASCP) Laboratory - Microbiology an d Antimicrobial susceptibilityOrdered By: Laurie Cordero on 10-20-2024 HBV surface Ag Ql (S) Non-Reactive Nonreactive [facility] Comment on above: Reactive: Presumptiv e evidence of HBV. Repeatedly reactive samples must be confirmed using a neutralization test ([employer] HBsAg Confirmatory Test)Non-Reactive: HBsAg not detected; does not exclude the possibility of exposure to HBV Laboratory - Miscellaneous t estsOrdered By: Laurie Cordero on 10-20-2024 Service comment (Unsp spec) [Interp] . . [facility] MCV (mean corpuscular volume ) determinationOrdered By: Laurie Cordero on 10-20-2024 MCV (RBC) [Entitic vol] 90.7 fL 81-99 [facility] Mean corpuscular hemoglobin (MCH) determinationOrdered By: Laurie Cordero on 10-20-2024 MCH (RBC) [Entitic mass] 31.6 pg 27.0-32.0 [facility] Mean corpuscular hemoglobin concentration (MCHC) determinationOrdered By: Laurie Cordero on 10-20-2024 MCHC (RBC) [Mass/Vol] 34.8 g/dL 32-36 [facility] Mean platelet volume determi nationOrdered By: Laurie Cordero on 10-20-2024 Platelet mean volume (Bld) [Entitic vol] 12.6 fL High 6.2-12.0 [facility] Monocyte percentageOrdered B y: Laurie Consuelo on 10-20-2024 Monocytes/100 WBC (Bld) 6.1 % 0-10 [facility] Neisseria gonorrhoeae nuclei c acid detection by amplified probe techniqueOrdered By: Laurie Cordero on 10-20-2024 N. gonorrhoeae DNA ANALY+probe Ql (Unsp spec) Negative Negative [facility] Comment on above: Performed at: [address] [id number] Director: Siomara Duarte MD, Phone: [phone] Neutrophil percentageOrdered By: Laurie Cordero on 10-20-2024 Neutrophils/100 WBC (Bld) 71.8 % High 47-70 [facility] No Panel InformationOrdered By: Laurie Cordero on 10-20-2024 Pap Smear Specimen Adequacy Comment . [facility] Comment on above: Satisfactory for farrukh luation. Endocervical and/or squamous metaplasticcells (endocervical component) are present. HIV (1&2) Antibody Non-Reactive Nonreactive [facility] Comment on above: Non-ReactiveReactive Repeatedly reactive samples must be confirmed according to CDC recommended confirmatory algorithms. The subresults for either HIVAG or AHIV can be used as an aid in the selection of the confirmation algorithm for reactive samples.Send out specimens with Reactive results to [facility] for confirmation.Order the HIV antibody detection and differentiation: #[id number] Nucleated red blood cell per centageOrdered By: Laurie Cordero on 10-20-2024 Nucleated RBC/100 WBC (Bld) [Ratio] 0 % 0-5 [facility] Segment Assembler Office Visit Reporton 10-20-2024 Segment Assembler Office Visit Report [facility] [address], [address] [place] [address] OFFICE VISIT Date of Service: 10/20/24 MR#: [id number] Acct: [id number] Name: MARIMAR MIRZA Rep #: [id number] : 2000 Provider: Dr. Laurie campa MD Age/Sex: 24/F Location: [facility] Status: Signed Intake Vital Signs 02/18/23 04:08 09/25/24 08:47 10/20/24 15:14 Height 5 ft 6 in 5 ft 6 in 5 ft 6 in Weight: 125 lb 8 oz BMI 20.2 BP 96/54 L Intake Visit Reasons: *NEW* NOB LMP 08/14, BILL 05/21 Utilities Ground Worker Required: No Is patient in pain?: No Allergies No Known Allergies Allergy (Verified 10/20/24 15:20) Medications ???Medication ???Instructions ???Recorded ???Confirmed ???Type acetaminophen 500 mg tablet 1,000 mg (2 x 500 mg) PO Q6H PRN 1 10/10/24 Rx PRN Pain 1-10 Or Fever #0 tabs multivit-min no.71-iron fum 28 cap PO 10/10/24 10/10/24 History mg-folate no.1 1 mg-dha 300 mg capsule (PNV-Fargo) Last Menstrual Period: 08/14/24 Zika: Zika virus screening: Negative : No PFSH PFSH Surgical History History of mandibular surgery Family History Grandmother Colon cancer, Onset Age: 84 Paternal Social History adopted: No household members: spouse and children housing: house number of children: 2 current occupational status: employed 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 current occupational exposures/hazards: No pets and animals: No history of recent travel: Yes (OR- September) out of state: Yes out of country: No sexually active: Yes Smoking Status: Never smoker alcohol intake: current alcohol intake frequency: holidays/special occasions only details: Not while substance use type: does not use well-balanced diet: daily or most days caffeine: No eating out: 1-3 times/week during the past year weight has: remained stable what type of physical activity do you participate in: walking and running frequency: daily duration: 30-45 minutes/day davide/shinto: Alevism seatbelt use: always do you feel safe at home: Yes 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 Date Name GA/Weeks Outcome Route Bth Weight Infant Gen Labor Lgth Anesthesia Del Locatn Provider FOB 07/19/19 ADOPTED- [facility] 02/18/23 Indie 39 live - full term 7# Female epidural [facility] Dr. Rinku Calderon Delivery Date: 02/18/23 Last Updated by: My Pagan subchorionic hemorrhage 1st trimester HPI *NEW* NOB LMP 08/14, BILL 05/21 Details: MARIMAR MIRZA is a 24 year old who presents for New OB visit. OB Visit BILL Calculator Estimated Delivery Date Method Current WG Current Estimate 05/21/25 LMP (Certain) 9w 4d Comments: HIV: Urine Culture: Sequential Screen: NIPT Screen: Estimated Due Date: 05/21/25 Expected Delivery Route/Plan Labor Preferences- CB/BF classes: [] labor support person: [] labor intervention preferences: [] pain management options preferred: [] cut cord/dad catch: [] : [] PP control planned: [] discussed possible routes of delivery and associated risks: [] special requests: [] Specific Issue/Plans Covid status: [] Flu vaccine: [] Tdap vaccine: [] Rhogam: [] LARC form signed: [] Problem list reviewed and updated with the most current plan of care details and appropriate orders placed. Relevant counseling for the gestational age provided. Continue routine care and follow up unless otherwise noted in visit notes/problem list details Initial Weight: Not Recorded Date -???-???-???-???-??? -???-???-???-???-??? -???-???- EGA Weight BP Urine Prot -???-???-???-???-??? -???-???-???-???-??? -???-???- Glucose FHR FuHt Pres Dilation -???-???-???-???-??? -???-???-???-???-??? -???-???- Effaced St Visit Note 06/16/25 -???-???-???-???-??? -???-???-???-???-??? -???-???- 9w 4d 125 lb 8 oz 96/54 -???-???-???-???-??? -???-???-???-???-??? -???-???- 160 -???-???-???-???-??? -???-???-???-???-??? -???-???- SM- CRL 3 co ns cm with LMP Menstrual History Last Menstrual Period: 08/14/24 Reported LMP: definite Normal amount/duration: Yes Frequency in days: 28-30 On hormonal BC at conception: No hCG+: 09/11/24 Antepartum Record Genetic Screening: Congenital Heart Defect: Other, Neural Tube Defect: Other, Hemoglobinopathy Or Carrier: Other, Cystic Fibrosis: Other, Chromosome Abnormality: Other, Evaristo-Sachs: O (more content not included)... Normal [facility] Platelet countOrdered By: Bhavani Cordero on 10-20-2024 Platelets (Bld) [#/Vol] 160 10*3/uL 150-450 [facility] RBC Auto (Bld) [#/Vol]Ordere d By: Laurie Cordero on 10-20-2024 RBC (Bld) [#/Vol] 4.21 10*6/uL 4.2-5.4 [facility] Syphilis Antibodieson 2024 Syphilis Abs Non-Reactive Normal Nonreactive [facility] Comment on above: Performed By: #### L 100.0100, U92077-9, L3890.6301, BTS, L3890.6102, L3890.6006, L509.8002, BtABORH, L509.4006 ####[facility] [address] [place], [place], [id number] Type AND Screenon 10-20-2024 Ab SCREEN GEL TNP Normal [facility] Comment on above: Order Comment: PN Performed By: #### L 100.0100, P65630-7, L3890.6301, BTS, L3890.6102, L3890.6006, L509.8002, BtABORH, L509.4006 ####[facility] [address] [place], [address] Urine cultureOrdered By: Wilbert Cordero on 10-20-2024 Bacteria identified Cx Nom (U) Positive Abnormal [facility] White blood cell (WBC) count Ordered By: Laurie Cordero on 10-20-2024 WBC (Bld) [#/Vol] 7.7 10*3/uL 4.4-11.0 [facility] - Chemistry and C hemistry - challengeOrdered By: Laurie Cordero on 09-25-2024 HCG ( test) Ql (U) Positive [facility] Office Visit Reporton 2024 Office Visit Report [facility] [address] [place] [address] OFFICE VISIT Date of Service: 09/25/24 MR#: [id number] Acct: [id number] Patient: MARIMAR MIRZA Rep #: [id number] : 2000 Provider: Dr. Laurie campa MD Age/Sex: 24/F Location: [facility] Status: Signed Intake Vital Signs 02/18/23 04:08 09/25/24 08:47 Height 5 ft 6 in 5 ft 6 in Weight: 128 lb 2 oz BMI 20.7 BP 108/71 Intake Visit Reasons: Establish care, Confirm Chief Complaint: Establish Care, Confirm Utilities Ground Worker Required: No Is patient in pain?: No Allergies No Known Allergies Allergy (Verified 09/25/24 08:44) Medications ???Medication ???Instructions ???Recorded ???Confirmed ???Type acetaminophen 500 mg tablet 1,000 mg (2 x 500 mg) PO Q6H PRN 1 09/25/24 Rx PRN Pain 1-10 Or Fever #0 tabs ibuprofen 600 mg tablet 600 mg PO Q6H PRN PRN Pain Score 1 09/25/24 Rx 1-3 #0 tabs docosahexaenoic acid 200 mg mg PO 09/25/24 09/25/24 History capsule ( DHA) Post menopausal: No Patient : Yes Have you fallen in the past year?: No Results POC Urine Office , Urine Positive Last Edit by Yaneli Porras on 09/25/24 08:52 Assessment and Plan Assessment and Plan (1) Vaginal delivery: Status: Acute Orders: Orders POC Urine 09/25/24 N91.2 - Amenorrhea, unspecified Clinical Quality Measures Falls Risk Screening/Assistive Devices Have you fallen in the past year?: No 09/26/24 09 Date Laurie Cordero MD Cosign Signature: Date (if applicable) CC: Normal [facility] HCG.beta subunit Qn 4.0 m[IU]/mL Normal <5.0 [facility] Comment on above: Order Comment: Speci men Type: BLOOD SPECIMEN Ordering Facility: [facility] Address: [address] [place] [address] Result Comment: Edison sanchez Performed By: #### 2 1198-7 #### [facility] CLIA [id number] [address] [place] [address] [place] [address] [place] Laurent 05-26-2024 MISSYN Telephone (OBGYWM) MARIMAR MIRZA ([id number]) 2000 F Date Time Provider Department 05/26/24 YEE DIAZ OBGYWM During your visit today, we recorded the following information about you: Ava Burrell RN 05/26/2024 4:13 PM Signed LMP 04/20/24 - 5w1d Calling because she started bleeding this morning. It started shortly after she worked out this morning. Initially was spotting and now is more of a light flow, bright red in color. Having dull lower back ache and intermittent mild cramping throughout pelvis. Last intercourse 05/24. Hcg quant orders pending if needed. KATIANA Mujica Sara, MD 05/26/2024 4:46 PM Signed Ordered and needs visit this week thanks Tala Sinclair RN 05/26/2024 4:55 PM Signed Patient notified. Appointment given with THOMAS on Sunday. Tala Sinclair RN Allergies As of Date: 05/26/2024 (No Known Allergies) Date Reviewed: 05/15/2024 Reviewed by: Didier Dasilva MD - Fully Assessed Reason for Visit: Early OB Bleeding [Other] Primary Visit Diagnosis:Bleeding in early [O20.9] Order(s):HCG QUANTITATIVE [SQHCGQT] Order #: [id number] STANDING Prescriptions as of 05/26/2024 - VIT 84-SPXY-[id number]-DHA ORAL Take by mouth. - ALBUTEROL SULFATE HFA INHALATION Inhale as instructed. Problem List As Of Date 05/26/2024 Noted Resolved with care elsewhere, antepar*01/03/2023 04/02/2023 Benign gestational thrombocytopenia, antepartum* 3 04/02/2023 Uterine size-date discrepancy, third trimester *02/12/2023 04/02/2023 Encounter Status:Closed by TALA SINCLAIR on 05/26/24 [facility] CNOVon 05-15-2024 CNOV Office Visit (OBGYWM) MARIMAR MIRZA ([id number]) 2000 F Date Time Provider Department 05/15/24 11:30 AM DIDIER DASILVA OBGYWM During your visit today, we recorded the following information about you: Blood pressure Weight Height Last Period 100/58 56.7 kg 1.702 m 04/20/24 Didier Dasilva MD 05/15/2024 11:55 AM Signed Marimar is a 23 year old who presents for an annual gynecologic exam without complaints. Menses: cycles every 28 days and 4 days of flow, some cramps. Menstrual flow: Moderate OB History T1 L1 SAB0 IAB0 Ectopic0 Multiple0 Live Births1 Network [employer] History LMP: 04/20/2024 (Exact Date), Having periods Age at Menarche: Age at First : Age at Menopause: Network Planner History Comments: Sexual Activity: Yes; Male Contraception: No contraception data on record PAST MEDICAL HISTORY Diagnosis Date Asthma exercise induced asthma PAST SURGICAL HISTORY Procedure Laterality Date PAST SURGICAL HISTORY OF jaw-bite correction FAMILY HISTORY Problem Relation Age of Onset No Known Problems Mother No Known Problems Father No Known Problems Sister No Known Problems Sister No Known Problems Sister No Known Problems Brother No Known Problems Brother No Known Problems Brother No Known Problems Brother No Known Problems Brother No Known Problems Brother No Known Problems Brother Accidental Maternal Grandmother No Known Problems Maternal Grandfather Colon Cancer Paternal Grandmother Multiple Sclerosis Paternal Grandfather SOCIAL HISTORY Social History Tobacco Use Smoking status: Never Smokeless tobacco: Never Vaping Use Vaping status: Never Used Substance Use Topics Alcohol use: Not Currently Alcohol/week: 1.0 standard drink of alcohol Types: 1 Glasses of wine per week Drug use: Never REVIEW OF SYSTEMS Abdomen: No abdominal pain, nausea, vomiting, diarrhea, or constipation. No bloating, early satiety, indigestion, or increased flatulence. Bladder: No dysuria, gross hematuria, urinary frequency, urinary urgency, or incontinence. Breast: No breast lumps, nipple d/c, overlying skin changes, redness or skin retraction. Allergies and current medication updated:Yes SENSITIVE EXAM: The sensitive examination was discussed with the Patient or Patient's Authorized Behavior Support Specialist. As applicable, any other physician, advance practice provider, medical student, or other health professional student that will be observing or involved in the sensitive examination for educational or training purposes was discussed with the Patient or Authorized Behavior Support Specialist. The Patient or Authorized Behavior Support Specialist has agreed to proceed with the sensitive examination. (Sensitive examination includes inspection and/or palpation of the breasts, pelvis, prostate and anorectal regions). EXAM: BP 100/58 Ht 5' 7 (1.70m) Wt 125 lb (56.7kg) LMP 04/20/2024 BMI 19.57 kg/(m2). GENERAL: pleasant, female in no apparent distress HEENT: Normocephalic, atraumatic, mucus membranes moist, and no lesions NECK: Supple, full range of motion, no adenopathy, and thyroid normal DERMATOLOGY: Normal, without lesions, non-icteric, and non-hirsute BREAST: soft, non-tender, symmetric, no dominant mass, normal nipple-areolar complex, no lymphadenopathy, and no nipple discharge CHEST: Normal inspiratory effort ABDOMEN: soft, non-tender, and no masses PELVIC: external genitalia normal, normal Bartholin's glands, urethra, Warsaw's glands, no vulvar lesions, no cervical lesions, good vaginal support, physiologic discharge present, normal appearing perineal body and perianal region BIMANUAL: uterus normal size, shape and consistency, no adnexal masses, and non-tender RECTOVAGINAL: deferred. NEURO: alert and oriented x3,exam grossly non-focal EXTREMITIES: normal ASSESSMENT/PLAN: 1) Health maintenance: Pap/HPV up to date. had gardasil vaccines 2) Contraception: none. Contraceptive options reviewed and information provided. 3) STD screening: Declined STD check. 4) Follow up one year or sooner as needed Didier Dasilva MD Allergies As of Date: 05/15/2024 (No Known Allergies) Date Reviewed: 05/15/2024 Reviewed by: Didier Dasilva MD - Fully Assessed Reason for Visit: Yearly Exam [187] Primary Visit Diagnosis:Encounter for gynecological examination (general) (routine) without abnormal findings [Z01.419] Prescriptions as of 05/15/2024 - VIT 19-[id number]-[id number]-DHA ORAL Take by mouth. - ALBUTEROL SULFATE HFA INHALATION Inhale as instructed. Problem List As Of Date 05/15/2024 Noted Resolved with care elsewhere, antepar*01/03/2023 04/02/2023 Benign gestational thrombocytopenia, antepartum*04/02/2023 Uterine size-date discrepancy, third trimester *02/12/2023 04/02/2023 Medications Discontinued (more content not included)... Normal [facility] 03-11-2024 CNPN Telephone (OBGYWM) MARIMAR MIRZA ([id number]) 2000 F Date Time Provider Department 03/11/24 DIDIER DASILVA OBGYWM During your visit today, we recorded the following information about you: Tala Sinclair RN 03/11/2024 4:49 PM Signed Left message for patient to call office. Patient has annual exam with RR on 04/08 @ 0840. RR now has a 0715 . Can patient come at a later time that day? KATIANA Pinedo Jennifer, RN 03/11/2024 5:01 PM Signed Patient called back. Rescheduled appointment. Tala Sinclair RN Allergies As of Date: 03/11/2024 (No Known Allergies) Date Reviewed: 04/02/2023 Reviewed by: Didier Dasilva MD - Fully Assessed Reason for Visit: Appointment [186] Prescriptions as of 03/11/2024 - Norethindrone, Contraceptive, 0.35 mg tablet take 1 tablet by mouth every day - VIT 53-[id number]-DHA ORAL Take by mouth. - ALBUTEROL SULFATE HFA INHALATION Inhale as instructed. Problem List As Of Date 03/11/2024 Noted Resolved with care elsewhere, antepar*01/03/2023 04/02/2023 Benign gestational thrombocytopenia, antepartum* 3 04/02/2023 Uterine size-date discrepancy, third trimester *02/12/2023 04/02/2023 Encounter Status:Closed by TALA SINCLAIR on 03/11/24 Normal [facility] Absolute lymphocyte countOrd ered By: Didier Dasilva on 02-18-2023 Lymphocytes Auto (Unsp spec) [#/Vol] 1.29 10*3/uL 0.83-4.51 [facility] Basophil percentageOrdered B y: Didier Dasilva on 02-18-2023 Basophils/100 WBC (Bld) 0.3 % 0-1 [facility] Eosinophils/100 WBC (Bld) 1.2 % 0-5 [facility] Neutrophils (Bld) [#/Vol] 4.2 10*3/uL 2.0-7.7 [facility] Neutrophils/100 WBC (Bld) 68.8 % 47-70 [facility] WBC (Bld) [#/Vol] 6.1 10*3/uL 4.4-11.0 [place] Blood erythrocytes count (nu mber/volume)Ordered By: Didier Dasilva on 02-18-2023 RBC (Bld) [#/Vol] 4.18 10*6/uL 4.2-5.4 [facility] Blood hemoglobin measurement (mass/volume)Ordered By: Didier Dasilva on 02-18-2023 Hemoglobin (Bld) [Mass/Vol] 13.2 g/dL 12.0-15.0 [facility] Blood lymphocytes/100 leukoc ytesOrdered By: Didier Dasilva on 02-18-2023 Lymphocytes/100 WBC (Bld) 21.3 % 19-41 [facility] Blood monocytes/100 leukocyt esOrdered By: Didier Dasilva on 02-18-2023 Monocytes/100 WBC (Bld) 7.9 % 0-10 [facility] Blood platelet mean volumeOr dered By: Didier Dasilva on 02-18-2023 Platelet mean volume (Bld) [Entitic vol] 13.2 fL 6.2-12.0 [facility] Determination of erythrocyte mean corpuscular volume (MCV)Ordered By: Didier Dasilva on 02-18-2023 MCV (RBC) [Entitic vol] 95.9 fL 81-99 [facility] Hematocrit Auto (Bld) [Volum e fraction]Ordered By: Didier Dasilva on 02-18-2023 Hematocrit (Bld) [Volume fraction] 40.1 % 37-47 [facility] Laboratory - Hematology and Cell countsOrdered By: Didier Dasilva on 02-18-2023 Erythrocyte distribution width (RBC) [Entitic vol] 45.1 fL 35.1-43.9 [facility] Erythrocyte distribution width (RBC) [Ratio] 13.0 % 11.6-14.6 [facility] Immature granulocytes/100 WBC (Bld) 0.500 % 0.0-0.9 [facility] Comment on above: IG% - Immature Granu locytes (promyelocytes, myelocytes and metamyelocytes) > 1% indicates that a LEFT SHIFT is Present. MCH (RBC) [Entitic mass] 31.6 pg 27.0-32.0 [facility] Nucleated RBC/100 WBC (Bld) [Ratio] 0 % 0-5 [facility] MCHC Auto (RBC) [Mass/Vol]Or dered By: Didier Dasilva on 02-18-2023 MCHC (RBC) [Mass/Vol] 32.9 g/dL 32-36 [facility] No Panel InformationOrdered By: Didier Dasilva on 02-18-2023 Vaginal Amniotic Fluid Detection Positive Negative [facility] Comment on above: Amniotic fluid prese nt indicates rupture of Membranes. RESULTS CALLED TO Zoe BARR RN () 02/18/23 0355 Juancarlos Hernandez.REPORT READ BACK BY SAME . Platelets bldOrdered By: Lianna Dasilva on 02-18-2023 Platelets (Bld) [#/Vol] 117 10*3/uL 150-450 [facility] Serum Treponema species anti body detectionOrdered By: Didier Dasilva on 02-18-2023 Treponema sp Ab Ql (S) Non-Reactive [facility] OBSTETRIC ULTRASOUND WHIon 1 [facility] URINE OB DIP B/Oon 3 Glucose Ql (U) Negative Neg mg/dL [facility] Protein.monoclonal (U) [Mass/Vol] Negative Neg mg/dL [facility] URINE OB DIP B/Oon Glucose Ql (U) Negative Neg mg/dL [facility] Protein.monoclonal (U) [Mass/Vol] Negative Neg mg/dL [facility] Absolute lymphocyte countOrd ered By: Manuela Rios on 12-01-2022 Lymphocytes Auto (Unsp spec) [#/Vol] 1.06 10*3/uL 0.83-4.51 [facility] Basophil percentageOrdered B y: Manuela Rios on 12-01-2022 Basophils/100 WBC (Bld) 0.7 % 0-1 [facility] Eosinophils/100 WBC (Bld) 1.6 % 0-5 [facility] Neutrophils (Bld) [#/Vol] 5.4 10*3/uL 2.0-7.7 [facility] Neutrophils/100 WBC (Bld) 76.2 % 47-70 [facility] WBC (Bld) [#/Vol] 7.1 10*3/uL 4.4-11.0 [place] Blood erythrocytes count (nu mber/volume)Ordered By: Manuela Rios on 12-01-2022 RBC (Bld) [#/Vol] 3.87 10*6/uL 4.2-5.4 [facility] Blood hemoglobin measurement (mass/volume)Ordered By: Manuela Rios on 12-01-2022 Hemoglobin (Bld) [Mass/Vol] 12.7 g/dL 12.0-15.0 [facility] Blood lymphocytes/100 leukoc ytesOrdered By: Manuela Rios on 12-01-2022 Lymphocytes/100 WBC (Bld) 15.0 % 19-41 [facility] Blood monocytes/100 leukocyt esOrdered By: Manuela Rios on 12-01-2022 Monocytes/100 WBC (Bld) 5.2 % 0-10 [facility] Blood platelet mean volumeOr dered By: Manuela Rios on 12-01-2022 Platelet mean volume (Bld) [Entitic vol] 12.0 fL 6.2-12.0 [facility] Determination of erythrocyte mean corpuscular volume (MCV)Ordered By: Manuela Rios on 12-01-2022 MCV (RBC) [Entitic vol] 97.7 fL 81-99 [facility] Gestational diabetes screen 1-hour screen with 50g oral glucose loadOrdered By: Manuela Rios on 12-01-2022 Glucose 1 Hr post 50 g glucose PO [Mass/Vol] 118 mg/dL 70-140 [facility] Hematocrit Auto (Bld) [Volum e fraction]Ordered By: Manuela Rios on 12-01-2022 Hematocrit (Bld) [Volume fraction] 37.8 % 37-47 [facility] - Hematology and Cell countsOrdered By: Manuela Rios on 12-01-2022 Erythrocyte distribution width (RBC) [Entitic vol] 48.1 fL 35.1-43.9 [facility] Erythrocyte distribution width (RBC) [Ratio] 13.6 % 11.6-14.6 [facility] Immature granulocytes/100 WBC (Bld) 1.300 % 0.0-0.9 [facility] Comment on above: IG% - Immature Granu locytes (promyelocytes, myelocytes and metamyelocytes) > 1% indicates that a LEFT SHIFT is Present. MCH (RBC) [Entitic mass] 32.8 pg 27.0-32.0 [facility] Nucleated RBC/100 WBC (Bld) [Ratio] 0 % 0-5 [facility] MCHC Auto (RBC) [Mass/Vol]Or dered By: Manuela Rios on 12-01-2022 MCHC (RBC) [Mass/Vol] 33.6 g/dL 32-36 [facility] Platelets bldOrdered By: Ameya Rios on 12-01-2022 Platelets (Bld) [#/Vol] 130 10*3/uL 150-450 [facility] Serum Treponema species anti body detectionOrdered By: Manuela Rios on 12-01-2022 Treponema sp Ab Ql (S) Non-Reactive [facility] Culture, urineOrdered By: Dr Soledad Rios on 07-09-2022 Bacteria identified Cx Nom (U) Culture exhibits no growth. [facility] Absolute lymphocyte countOrd ered By: Dr. Rios on 07-07-2022 Lymphocytes Auto (Unsp spec) [#/Vol] 1.15 10*3/uL 0.83-4.51 [facility] Basophil percentageOrdered B y: Dr. Rios on 07-07-2022 Basophils/100 WBC (Bld) 0.7 % 0-1 [facility] Eosinophils/100 WBC (Bld) 1.1 % 0-5 [facility] Neutrophils (Bld) [#/Vol] 3.8 10*3/uL 2.0-7.7 [facility] Neutrophils/100 WBC (Bld) 70.3 % 47-70 [facility] WBC (Bld) [#/Vol] 5.4 10*3/uL 4.4-11.0 [place] Blood erythrocytes count (nu mber/volume)Ordered By: Dr. Rios on 07-07-2022 RBC (Bld) [#/Vol] 4.04 10*6/uL 4.2-5.4 [facility] Blood hemoglobin measurement (mass/volume)Ordered By: Dr. Rios on 07-07-2022 Hemoglobin (Bld) [Mass/Vol] 12.9 g/dL 12.0-15.0 [facility] Blood lymphocytes/100 leukoc ytesOrdered By: Dr. Rios on 07-07-2022 Lymphocytes/100 WBC (Bld) 21.5 % 19-41 [facility] Blood monocytes/100 leukocyt esOrdered By: Dr. Rios on 07-07-2022 Monocytes/100 WBC (Bld) 6.2 % 0-10 [facility] Blood platelet mean volumeOr dered By: Dr. Rios on 07-07-2022 Platelet mean volume (Bld) [Entitic vol] 11.4 fL 6.2-12.0 [facility] Determination of erythrocyte mean corpuscular volume (MCV)Ordered By: Dr. Rios on 07-07-2022 MCV (RBC) [Entitic vol] 93.8 fL 81-99 [facility] HIV 1 and HIV-2 antibody ass ay with HIV-1 p24 antigen detectionOrdered By: Dr. Rios on 07-07-2022 HIV 1+2 Ab+HIV1 p24 Ag IA Ql Non-Reactive Nonreactive [facility] Hematocrit Auto (Bld) [Volum e fraction]Ordered By: Dr. Rios on 07-07-2022 Hematocrit (Bld) [Volume fraction] 37.9 % 37-47 [facility] - Hematology and Cell countsOrdered By: Dr. Rios on 07-07-2022 Erythrocyte distribution width (RBC) [Entitic vol] 43.5 fL 35.1-43.9 [facility] Erythrocyte distribution width (RBC) [Ratio] 12.6 % 11.6-14.6 [facility] Immature granulocytes/100 WBC (Bld) 0.200 % 0.0-0.9 [facility] Comment on above: IG% - Immature Granu locytes (promyelocytes, myelocytes and metamyelocytes) > 1% indicates that a LEFT SHIFT is Present. MCH (RBC) [Entitic mass] 31.9 pg 27.0-32.0 [facility] Nucleated RBC/100 WBC (Bld) [Ratio] 0 % 0-5 [facility] MCHC Auto (RBC) [Mass/Vol]Or dered By: Dr. Rios on 07-07-2022 MCHC (RBC) [Mass/Vol] 34.0 g/dL 32-36 [facility] No Panel InformationOrdered By: Dr. Rios on 07-07-2022 Hepatitis B Surface Antigen Non-Reactive Nonreactive [facility] Hepatitis C Antibody Non-Reactive Nonreactive [facility] Comment on above: Non Reactive: < 0.8 Equivocal: >/= 0.8 to < 1.0 Reactive: >/= 1.0The CDC recommends that a reactive/equivocal HCV antibody result be followed up by the HCV Nucleic Acid Amplificationtest ([id number]) Rubella IgG Antibody Reactive Nonreactive [facility] Comment on above: Antibody Results Int erpretation of Immune Status Non Reactive Presumed Non-Immune Equivocal Equivocal Reactive Presumed Immune Platelets bldOrdered By: Dr. Rios on 07-07-2022 Platelets (Bld) [#/Vol] 150 10*3/uL 150-450 [facility] Serum Treponema species anti body detectionOrdered By: Dr. Rios on 07-07-2022 Treponema sp Ab Ql (S) Non-Reactive [facility] Serum Varicella zoster virus IgG antibody assay by immunoassay (units/volume)Ordered By: Dr. Rios on 07-07-2022 VZV IgG IA Qn (S) 2093 index Immune >165 [place] Comment on above: Negative <135 Equivo jayleen 135 - 165 Positive >165A positive result generally indicates exposure to thepathogen or administration of specific immunoglobulins,but it is not indication of active infection or stageof disease.Performed at: [facility] [id number] Director: Oni Miller PhD, Phone: [phone] No Panel Informationon 01-13 Follicle Stimulating Hormone 2.0 mIU/mL [facility] Work Phone: Comment on above: NORMAL REFERENCE RAN GES FEMALE FOLLICULAR 2.3 - 12.6 mIU/mL MID-CYCLE PEAK 5.2 - 17.5 mIU/mL LUTEAL 1.7 - 12.9 mIU/mL POST-MENOPAUSAL ON MHT 5.9 - 72.8 mIU/mL NOT ON MHT 12.7 - 132.2 mlU/mL MALE 0.7 - 10.8 mIU/mL Luteinizing Hormone 0.8 mIU/mL [facility] Work Phone: Comment on above: NORMAL REFERENCE RAN GES FEMALE FOLLICULAR 1.9 - 26.2 mIU/mL MID-CYCLE PEAK 22.8 - 76.1 mIU/mL LUTEAL 0.6 - 16.6 mIU/mL POST-MENOPAUSAL ON MHT 1.1 - 52.4 mIU/mL NOT ON MHT 8.6 - 61.8 mIU/mL MALE 1.2 - 10.6 mIU/mL Thyroid Stimulating Hormone (TSH) 1.94 uIU/mL 0.358-3.74 [facility] Work Phone: Serum or plasma estradiol (E 2) measurement (mass/volume)on 01-13-2022 E2 [Mass/Vol] 23.2 pg/mL [facility] Work Phone: Comment on above: NORMAL REFERENCE RAN GES FEMALE FOLLICULAR 21.4 - 164.8 pg/mL MID-CYCLE PEAK 49.9 - 367.2 pg/mL LUTEAL 40.2 - 259.0 pg/mL POST-MENOPAUSAL ON MHT <11.0 - 462.1 pg/mL NOT ON MHT <11.0 - 58.3 pg/mL MALE <11.0 - 52.5 pg/mL NOTE:[facility] HAS CONFIRMED THE DRUG FULVETRANT (FASLODEX) MAY CAUSE FALSELY ELEVATED ESTRADIOL RESULTS WHEN USING THIS TEST METHOD. IF PATIENT IS TAKING FULVESTRANT AN ALTERNATIVE METHOD SHOULD BE USED TO DETERMINE ESTRADIOL CONCENTRATION. Serum or plasma prolactin me asurement (mass/volume)on 01-13-2022 Prolactin [Mass/Vol] 6.1 ng/mL [facility] Work Phone: Comment on above: NORMAL REFERENCE RAN GES FEMALE NON- 2.2 - 30.3 ng/mL 8.1 - 347.6 ng/mL POST-MENOPAUSAL 0.7 - 31.5 ng/mL MALE 2.5 - 17.4 ng/mL Vital Signs Date Time Vital Sign Value Performing Clinician Faci lity 02-16-2025 08:45-0400 Body height 167.64 cm Rubin Aleman CNM Work Phone: [facility] 02-16-2025 08:45-0400 Body mass index (BMI) [Ratio] 22.1 kg/m2 Rubin Aleman CNM Work Phone: [facility] 02-16-2025 08:45-0400 Body weight 62.17 kg Rubin Aleman CNM Work Phone: [facility] 02-16-2025 08:45-0400 Diastolic blood pressure 54 mm[Hg] Rubin Aleman CNM Work Phone: [facility] 02-16-2025 08:45-0400 Systolic blood pressure 88 mm[Hg] Rubin RUSSELL Work Phone: [facility] 01-22-2025 10:43-0400 Body height 167.[address] Laurie Cordero MD Work Phone: [facility] 01-22-2025 10:38-0400 Body mass index (BMI) [Ratio] 22 kg/m2 Dr. Laurie Cordero MD Work Phone: [facility] 01-22-2025 10:38-0400 Body weight 61.[address] Laurie Cordero MD Work Phone: [facility] 01-22-2025 10:38-0400 Diastolic blood pressure 58 mm[Hg] Dr. Laurie Cordero MD Work Phone: [phone])525-449743 [place] [address] 01-22-2025 10:38-0400 Systolic blood pressure 99 mm[Hg] Dr. Laurie Cordero MD Work Phone: 1(188)866-775543 [place] [address] 12-25-2024 10:16-0400 Body height 167.[address] Laurie Cordero MD Work Phone: 3(260)052-602843 [place] [address] 12-25-2024 10:14-0400 Body mass index (BMI) [Ratio] 21.4 kg/m2 Dr. Laurie Cordero MD Work Phone: 2(656)661-480743 [place] [address] 12-25-2024 10:14-0400 Body weight 60.[address] Laurie Cordero MD Work Phone: 3(079)190-356743 [place] [address] 12-25-2024 10:14-0400 Diastolic blood pressure 54 mm[Hg] Dr. Laurie Cordero MD Work Phone: 8(750)147-030543 [place] [address] 12-25-2024 10:14-0400 Systolic blood pressure 94 mm[Hg] Dr. Laurie Cordero MD Work Phone: 4(228)688-394943 [place] [address] 11-27-2024 11:24-0400 Body height 167.[address] Laurie Cordero MD Work Phone: 9([phone])127-256743 [place] [address] 11-27-2024 11:21-0400 Body mass index (BMI) [Ratio] 20.7 kg/m2 Dr. Laurie Cordero MD Work Phone: 4(307)921-558743 [place] [address] 11-27-2024 11:21-0400 Body weight 58.[address] Laurie Cordero MD Work Phone: 2(955)967-939643 [place] [address] 11-27-2024 11:21-0400 Diastolic blood pressure 63 mm[Hg] Dr. Laurie Cordero MD Work Phone: 0(740)643-111543 [place] [address] 11-27-2024 11:21-0400 Systolic blood pressure 104 mm[Hg] Dr. Laurie Cordero MD Work Phone: 1(193)[phone] [place] [address] 10-20-2024 15:14-0400 Body height 167.[address] Laurie Cordero MD Work Phone: [facility] 10-20-2024 15:14-0400 Body mass index (BMI) [Ratio] 20.2 kg/m2 Dr. Laurie Cordero MD Work Phone: [facility] 10-20-2024 15:14-0400 Body weight 56.[address] Laurie Cordero MD Work Phone: [facility] 10-20-2024 15:14-0400 Diastolic blood pressure 54 mm[Hg] Dr. Laurie Cordero MD Work Phone: [facility] 10-20-2024 15:14-0400 Systolic blood pressure 96 mm[Hg] Dr. Laurie Cordero MD Work Phone: [facility] 09-25-2024 08:47-0400 Body mass index (BMI) [Ratio] 20.7 kg/m2 Dr. Laurie Cordero MD Work Phone: [facility] 09-25-2024 08:47-0400 Body weight 58.[address] Laurie Cordero MD Work Phone: [facility] 09-25-2024 08:47-0400 Diastolic blood pressure 71 mm[Hg] Dr. Laurie Cordero MD Work Phone: [facility] 09-25-2024 08:47-0400 Systolic blood pressure 108 mm[Hg] Dr. Laurie Cordero MD Work Phone: [facility] 05-15-2024 11:40-0500 Body height 170.2 cm Didier Dasilva MD Work Phone: [facility] 05-15-2024 11:40-0500 Body mass index (BMI) [Ratio] 19.58 kg/m2 Didier Dasilva MD Work Phone: [facility] 05-15-2024 11:40-0500 Body weight 56.7 kg Didier Dasilva MD Work Phone: [facility] 05-15-2024 11:40-0500 Diastolic blood pressure 58 mm[Hg] Didier Dasilva MD Work Phone: [facility] 05-15-2024 11:40-0500 Systolic blood pressure 100 mm[Hg] Didier Dasilva MD Work Phone: [facility] 04-02-2023 11:44-0500 Body height 170.2 cm Didier Dasilva MD Work Phone: [facility] 04-02-2023 11:44-0500 Body weight 58.51 kg Didier Dasilva MD Work Phone: [facility] 04-02-2023 11:44-0500 Diastolic blood pressure 52 mm[Hg] Didier Dasilva MD Work Phone: [facility] 04-02-2023 11:44-0500 Systolic blood pressure 96 mm[Hg] Didier Dasilva MD Work Phone: [facility] 02-19-2023 17:31-0400 Body temperature 97.8 [degF] [facility] 02-19-2023 17:31-0400 Diastolic blood pressure 68 mm[Hg] [facility] 02-19-2023 17:31-0400 Heart rate 58 /min [facility] 02-19-2023 17:31-0400 Respiratory rate 16 /min [facility] 02-19-2023 17:31-0400 Systolic blood pressure 114 mm[Hg] [facility] 02-19-2023 08:17-0400 SaO2% (BldA) [Mass fraction] 98 % [facility] 02-18-2023 04:08-0400 Body height 167.64 cm [facility] 02-18-2023 04:08-0400 Body mass index (BMI) [Ratio] 23.2 kg/m2 [facility] 02-18-2023 04:08-0400 Body weight 65.31 kg [facility] 02-13-2023 08:57-0400 Diastolic blood pressure 52 mm[Hg] Ob Ultrasound Work Phone: [facility] 02-13-2023 08:57-0400 Systolic blood pressure 92 mm[Hg] Ob Ultrasound Work Phone: [facility] 02-12-2023 15:10-0400 Body weight 65.32 kg Tamra Diaz APRN.CNM Work Phone: [facility] 02-12-2023 15:10-0400 Diastolic blood pressure 58 mm[Hg] Tamra Diaz APRN.CNM Work Phone: [facility] 02-12-2023 15:10-0400 Systolic blood pressure 102 mm[Hg] Tamra Diaz APRN.CNM Work Phone: [facility] 02-05-2023 13:29-0400 Body weight 65.32 kg Didier Dasilva MD Work Phone: [facility] 02-05-2023 13:29-0400 Diastolic blood pressure 60 mm[Hg] Didier Dasilva MD Work Phone: [facility] 02-05-2023 13:29-0400 Systolic blood pressure 102 mm[Hg] Didier Dasilva MD Work Phone: [facility] Encounters Encounter Date Encounter Type Care Provider Facility Start: 03-12-2025 End: 03-12-2025 ambulatory No Primary Care Physician Facility:[facility] Start: 03-09-2025 End: 03-09-2025 Subsequent hospital visit by physician Riaz Rios APRN - PRESCHOOL ASSOCIATE TEACHER Work Phone: [facility] Comment on above: Localized swelling, mass and lump, neck Start: 03-09-2025 End: 03-09-2025 ambulatory RIAZ RIOS [facility] Start: 03-04-2025 ambulatory KATLIN CHRISTY Facility:[facility] Start: 02-26-2025 End: 02-26-2025 ambulatory Rubin Aleman Facility:[facility] Start: 02-16-2025 End: 02-16-2025 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Shanae AGUIAR -[facility] Work Phone: Start: 02-16-2025 End: 02-16-2025 ambulatory Rubin Aleman CNM Work Phone: [facility][1] Start: 02-16-2025 End: 02-16-2025 ambulatory Tala Muñoz Facility:[facility] Start: 01-22-2025 End: 01-22-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 Tala Muñoz DO -[facility] Work Phone: Start: 01-22-2025 End: 01-22-[address] Laurie Cordero MD Work Phone: [facility][1] Start: 12-29-2024 End: 12-29-2024 ambulatory MD MESFIN GARRETT [facility] Start: 12-25-2024 End: 12-25-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 Laurie Cordero MD -[facility] Work Phone: Start: 12-25-2024 End: 12-25-[address] Laurie Cordero MD Work Phone: [facility][1] Start: 11-27-2024 End: 11-27-2024 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Rubni Aleman CNM -[facility] Work Phone: Start: 11-27-2024 End: 11-27-[address] Laurie Cordero MD Work Phone: [facility][1] Start: 10-20-2024 End: 10-20-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 Laurie Cordero MD -[facility] Work Phone: Start: 10-20-2024 End: 10-20-[address] Laurie Cordero MD Work Phone: [facility] Work Phone: Start: 10-20-2024 End: 10-20-2024 ambulatory Laurie Cordero Facility:[facility] Start: 09-25-2024 End: 09-25-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 Laurie Cordero MD -[facility] Work Phone: Start: 09-25-2024 End: 09-25-2024 ambulatory Laurie Cordero [facility] Start: 05-27-2024 End: 05-27-2024 ambulatory YEE DIAZ Facility:[facility] Start: 05-26-2024 End: 05-26-2024 Telephone encounter Yee Diaz MD Work Phone: OB/Gynecology Comment on above: Early OB Bleeding Start: 05-15-2024 End: 05-15-2024 ambulatory DIDIER DASILVA Facility:[facility] Start: 05-15-2024 End: 05-15-2024 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Didier Dasilva MD Work Phone: OB/Gynecology Comment on above: Encounter for gyneco logical examination (general) (routine) without abnormal findings (Primary Dx) Start: 05-15-2024 End: 05-15-2024 Patient encounter status Didier Dasilva MD Work Phone: [facility] Start: 03-11-2024 End: 03-11-2024 Telephone encounter Didier Dasilva MD Work Phone: OB/Gynecology Comment on above: Appointment Start: 01-07-2024 End: 01-08-2024 Refill Didier Dasilva MD Work Phone: OB/Gynecology Comment on above: Refill Request Start: 07-25-2023 Refill Didier alcaraz MD Work Phone: OB/Gynecology Comment on above: Refill Request Start: 04-02-2023 End: 04-02-2023 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Didier Dasilva MD Work Phone: OB/Gynecology Comment on above: care and examination (Primary Dx) Start: 02-19-2023 ambulatory Didier alcaraz MD Work Phone: OB/Gynecology Comment on above: Ob Delivery Note Start: 02-18-2023 End: 02-19-2023 [facility] Work Phone: Start: 02-13-2023 End: 02-13-2023 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Gis Analyst Developer [place] [facility] Work Phone: OB/Gynecology Comment on above: 37 weeks gestation o f ; Uterine size-date discrepancy, third trimester Start: 02-12-2023 End: 02-12-2023 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Tamra Joe MANM Work Phone: OB/Gynecology Comment on above: 37 weeks gestation o f (Primary Dx); with care elsewhere, antepartum; Uterine size-date discrepancy, third trimester Start: 02-05-2023 End: 02-05-2023 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Didier Dasilva MD Work Phone: OB/Gynecology Comment on above: with prena katrina care elsewhere, antepartum (Primary Dx); Benign gestational thrombocytopenia, antepartum (HCC); 36 weeks gestation of ; Encounter for supervision of normal first in third trimester Start: 01-10-2023 Telephone encounter Yee chase MD Work Phone: OB/Gynecology Comment on above: Breast Pump Start: 01-02-2023 Telephone encounter Yee chase MD Work Phone: OB/Gynecology Comment on above: Request Outside [facility] Records Start: 12-22-2022 Telephone encounter [facility] [place] Comment on above: Process Expert - O ther (Initial OB RN CC pool/) Start: 12-01-2022 End: 12-01-2022 ambulatory [facility] Work Phone: Start: 12-01-2022 End: 12-01-2022 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[facility] graphics manager Off Start: 07-07-2022 End: 07-07-2022 ambulatory [facility] Work Phone: Start: 07-07-2022 End: 07-07-2022 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[facility] graphics manager Off Start: 01-13-2022 End: 01-13-2022 ambulatory [facility] Work Phone: Start: 01-13-2022 End: 01-13-2022 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[facility], [place] graphics manager Off Procedures Date Procedure Procedure Detail Performing Clinician Start: 03-09-2025 Us soft tissue head & neck real time imge docm Riaz Rios DIESEL POWER MECHANIC - PRESCHO[employer] ASSOCIATE TEACHER Work Phone: Start: 02-16-2025 Serologic test for syphilis Rubin Aleman CNM Work Phone: Start: 10-20-2024 Liquid based cervica l cytology screening Dr. Laurie Cordero MD Work Phone: Comment on above: NEGATIVE FOR INTRAEP ITHELIAL LESION OR MALIGNANCY. This liquid based Th inPrep(R) pap test was screened withthe use of an image guided system. The HPV DNA reflex c riteria were not met with this specimenresult therefore, no HPV testing was performed.Performed at: [facility] [id number] Director: Siomara Duarte MD, Phone: [phone] Start: 10-20-2024 Antibody screen Rubin matthew Comment on above: Performed By: #### L 100.0100, X20946-1, L3890.6301, BTS, L3890.6102, L3890.6006, L509.8002, BtABORH, L509.4006 ####[facility] [id number] [place], [place], [address] Start: 10-20-2024 Hepatitis C antibody measurement Dr. Laurie Cordero MD Work Phone: Comment on above: Reactive: Presumptiv e evidence of antibodies to HCV. Follow CDC recommendations for supplemental testing.Non-Reactive: Antibodies to HCV were not detected; does not exclude the possibility of exposure to HCVReactive Results are presumptive evidence of antibodies to HCV. Follow CDC recommendations for supplemental testing.Order confirmation testing: HCV Quant by PCR testing - HCVPCR #[id number] Non Reactive: < 0.8 Equivocal: >/= 0.8 to < 1.0 Reactive: >/= 1.0The CDC requires that a reactive/equivocal HCV antibody result be sent out for confirmation. HCV Quant by PCR testing. Start: 10-20-[address] Laurie Cordero MD Work Phone: Comment on above: Antibody Result: Int erpretationNon-Reactive: Non- ImmuneReactive: ImmuneThe following results were obtained with the [employer] Rubella IgG assay. Results from assays of other manufacturers cannot be used interchangeably. Start: 10-20-2024 Serologic test for syphilis Dr. Laurie Cordero MD Work Phone: Start: 10-20-[address] Pam Cordero MD Work Phone: Start: 10-20-2024 Microscopic observat ion [Identifier] in Cervix by Cyto stain Riaz Rios DIESEL POWER MECHANIC - PRESCHO[employer] ASSOCIATE TEACHER Work Phone: Start: 02-13-2023 Us preg uterus after 1st trimest 05/07 gestation Tamra Diaz DIESEL POWER MECHANIC.CNM Work Phone: Start: 02-12-2023 URINE OB DIP B/O Bria Diaz APRN.CNM Work Phone: Start: 02-05-2023 URINE OB DIP B/O Gaby Dasilva MD Work Phone: Urine culture Plan of Treatment Date Care Activity Detail Author Start: 2073 RSV Immunization for Adults (1 - 1-dose 75+ series) RSV Immunization for Adults (1 - 1-dose 75+ series) [facility] Start: 2048 Zoster Vaccines (1 of 2) Zoste r Vaccines (1 of 2) [facility] Start: 10-21-2027 Screening for malign ant neoplasm of cervix Pap Smear [facility] Start: 05-15-2025 End: 05-15-2025 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05/15/2025 4:00 PM EST Office Visit OB/Gynecology [address] [place] [address] Didier Dasilva MD [address] [place], [place] [id number] Annual OB/Gynecology Comment on above: Annual Start: 02-26-2025 Ultrasonography for antepartum monitoring of fetus OB Limited (No Biometrics) [facility] Start: 02-26-2025 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Registered [facility] Work Phone: Start: 01-22-2025 Measurement of gluco se 2 hours after glucose challenge for glucose tolerance test [facility] Start: 01-22-2025 Serologic test for syphilis [facility] Start: 01-22-2025 [facility] Start: 01-05-2025 COVID-19 Vaccine ( season) COVID-19 Vaccine () [facility] Start: 01-05-2025 Influenza vaccination Influenza Vacc ine (#1) [facility] Start: 11-27-2024 [facility] Start: 10-20-2024 CBC W Auto Different ial panel - Blood [facility] Start: 10-20-2024 Hepatitis C antibody measurement [facility] Start: 10-20-2024 Rubella IgG measurement [facility] Start: 10-20-2024 Serologic test for syphilis [facility] Start: 10-20-2024 [facility] Start: 10-20-2024 Liquid based cervica l cytology screening [facility] Start: 05-30-2024 End: 05-30-2024 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05/30/2024 10:00 AM EST Office Visit OB/Gynecology [address] [place] [address] Tamra Diaz APRN.[facility] [address] [place] [place] [address] Early OB - f/u bleeding OB/Gynecology Comment on above: Early OB - f/u bleed ing Start: 05-27-2024 End: 05-27-2024 ambulatory 05/27/2024 4:45 PM EST Results Only [place] [facility] [address] [place] [address] [place] [facility] Start: 05-27-2024 End: 05-27-2024 ambulatory 05/27/2024 11:30 AM EST Results Only [place] [facility] [address] [place] [address] [place] [facility] Start: 05-15-2024 End: 05-15-2024 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05/15/2024 11:30 AM EST Office Visit OB/Gynecology [address] [place] [address] Didier Dasilva MD [address] [place] [address] Annual - r/s from 04/08 OB/Gynecology Comment on above: Annual - r/s from Start: 04-08-2024 End: 04-08-2024 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04/08/2024 8:40 AM EST Office Visit OB/Gynecology [address] [place] [address] Didier Dasilva MD [address] [place] [address] Annual OB/Gynecology Comment on above: Annual Start: 01-06-2024 Covid-19 Vaccine ( season) Covid-19 Vaccine ( season) [facility] Start: 01-06-2024 Covid-19 Vaccine ( season) Covid-19 Vaccine ( season) [facility] Start: 01-06-2024 Influenza vaccination Influenza Vacc ine (#1) [facility] Start: 05-07-2023 Depression Assessment Depression Ass essment [facility] Start: 02-19-2023 [facility] Start: 02-19-2023 Patient discharge [facility] Start: 02-18-2023 Administration of medication [facility] Start: 02-18-2023 Application of ice c ollar, cap or bag [facility] Start: 02-18-2023 Catheterization of vein [facility] Start: 02-18-2023 Introduction of urin ariel catheter [facility] Start: 02-18-2023 Measuring intake and output [facility] Start: 02-18-2023 Notification of physician [facility] Start: 02-18-2023 Procedure discontinued [facility] Start: 02-18-2023 Provision of activit y privileges [facility] Start: 02-18-2023 Vital signs measurements [facility] Start: 02-18-2023 [facility] Start: 02-18-2023 Admission procedure [facility] Start: 01-05-2023 Covid-19 Vaccine () Covid-19 Vaccine ( season) [facility] Start: 01-05-2023 Influenza vaccination [facility] Start: 05-07-2022 DEPRESSION ASSESSMENT DEPRESSION ASS ESSMENT [facility] Start: 07-21-2019 PAP TESTING PAP TESTING [facility] Start: 07-21-2019 Screening for malign ant neoplasm of cervix [facility] Start: 2017 DTaP/Tdap/Td Vaccine s (1 - Tdap) DTaP/Tdap/Td Vaccines (1 - Tdap) [facility] Start: 2017 Hepatitis B Vaccine (1 of 3 - 19+ 3-dose series) Hepatitis B Vaccine (1 of 3 - 19+ 3-dose series) [facility] Start: 2017 Hepatitis B Vaccines (1 of 3 - 19+ 3-dose series) Hepatitis B Vaccines (1 of 3 - 19+ 3-dose series) [facility] Start: 2017 Urine microalbumin profile [facility] Start: 2016 Anxiety Screening Anxiety Screening [facility] Start: 2016 Depression Screening Depression Scre ening [facility] Start: 2016 HEPATITIS C SCREENING HEPATITIS C SC REENING [facility] Start: 2016 HIV SCREENING HIV SCREENING [facility] Start: 2013 HPV Vaccine (1 - 3-d ose series) HPV Vaccine (1 - 3-dose series) [facility] Start: 2013 HPV Vaccines (1 - 3- dose series) HPV Vaccines (1 - 3-dose series) [facility] Start: 2012 PEDS TO ADULT TRANSI TION ANNUAL ASSESSMENT PEDS TO ADULT TRANSITION ANNUAL ASSESSMENT [facility] Start: 07-21-2011 Varicella vaccination Varicell a Vaccines (1 of 2 - 13+ 2-dose series) [facility] Start: 2010 Depression Screening Depression Scre ening [facility] Start: 2010 PEDS TO ADULT TRANSI TION INITIAL DISCUSSION PEDS TO ADULT TRANSITION INITIAL DISCUSSION [facility] Start: 07-21-2007 HPV VACCINE (1 - 2-d ose series) HPV VACCINE (1 - 2-dose series) [facility] Start: 07-21-1999 MMR Vaccines (1 of 1 - Standard series) MMR Vaccines (1 of 1 - Standard series) [facility] Start: 01-20-1999 COVID-19 VACCINE (#1) COVID-19 VACCI NE (#1) [facility] Start: 1998 HEPATITIS B (1 of 3 - 3-dose series) HEPATITIS B (1 of 3 - 3-dose series) [facility] Start: 1998 Hepatitis B Vaccine (1 of 3 - 3-dose series) Hepatitis B Vaccine (1 of 3 - 3-dose series) [facility] CBC W Auto Different ial panel - Blood [facility] Chlamydia deoxyribon ucleic acid detection [facility] End: 06-26-2024 Choriogonadotropin.beta subunit [Units/volume] in Serum or Plasma HCG QUANTITATIVE Lab Routine Bleeding in early 2x per week for 2 Occurrences starting 05/26/2024 until 06/26/2024 [facility] Work Phone: Comment on above: 2x per week for 2 Oc currences starting 05/26/2024 until 06/26/2024 Erythrocyte mean corpuscular volume determination [facility] Hematocrit [Volume Fraction] of Blood [facility] Hemoglobin [Mass/vol ume] in Blood [facility] Hepatitis B virus reyes rface Ag [Presence] in Serum [facility] Leukocytes [#/volume ] in Blood [facility] Liquid based cervica l cytology screening [facility] Mean corpuscular hemoglobin concentration determination [facility] Mean corpuscular hemoglobin determination [facility] Neutrophil count [facility] Neutrophil percent differential count [facility] End: 08-11-2023 OBSTETRIC ULTRASOUND [facility] OBSTETRIC ULTRASOUND [facility] Anc Imaging Routine 37 weeks gestation of Uterine size-date discrepancy, third trimester Once per month for 5 Occurrences starting 02/12/2023 until 08/11/2023 [facility] Work Phone: Comment on above: Once per month for 5 Occurrences starting 02/12/2023 until 08/11/2023 Path report.final Dx Spec [facility] Work Phone: Patient referral [facility] Work Phone: Platelets [#/volume] in Blood [facility] Red blood cell count [facility] Red cell distributio n width determination [facility] c Immunizations Immunization Date Immunization Notes Care Provider Fa cility 03-01-2023 influenza virus vacc ine, unspecified formulation Riaz Rios DIESEL POWER MECHANIC - PRESCHOOL ASSOCIATE TEACHER Work Phone: [facility] Payers Date Payer Category Payer Self-pay 2024 [employer] - [employer] [id number] 2022 Unknown [employer] GILMAN PPO [id number] 2022-Present [phone] [address] [place] [address] [id number] 2022 Unknown [id number] 2000 Unknown [id number] Unknown [id number] [id number] Unknown [id number] 2.462 Unknown [id number] [id number] Unknown [id number] [id number]. 2.462 Unknown [id number] [id number] Unknown [id number] [id number] Unknown [id number]. [id number] Unknown [id number]. 2.462 Unknown [id number] [id number] Unknown [id number] [id number] Unknown [id number] 2.462 Social History Date Type Detail Facility Tobacco smoking stat RUSTIS Unknown if ever smoked [facility] Work Phone: Start: 2000 Sex Assigned At Female W [facility] Start: 02-18-2023 Tobacco smoking stat RUSTIS Tobacco smoking consumption unknown [facility] Start: 2000 Sex Assigned At Not on file [facility] Start: 01-03-2023 End: 01-25-2023 Gender identity Not on file [facility] Start: 01-03-2023 End: 10-10-2024 Tobacco smoking status NHIS Never smoked tobacco [facility] Work Phone: Start: 01-03-2023 Tobacco use and exposure Smokeless tobacco non-user [facility] Work Phone: Start: 01-03-2023 End: 05-15-2024 Alcohol intake Ex-drinker (finding) [facility] Start: 01-03-2023 End: 01-25-2023 Alcohol intake [facility] Start: 01-03-2023 Education 17 [facility] Start: 06-06-2022 [facility] National Score (1-100), lower number is lower risk 50 [facility] Start: 05-26-2024 Gender identity Identifies as female gender (finding) [facility] Start: 03-05-2025 Sex Female (finding) [facility] Goals Date Patient Goal Desired Activity /State Clinical Notes 12-25-2022 to 02-16-2025 Note Date & Type Note Facility 02-16-2025 Progress note [facility] 01-22-2025 Progress note [facility] 12-25-2024 Progress note [facility] 11-27-2024 Evaluation note Diagnosis Onset Date Resolution Exercise-induced asthma acute J sung 2024 11:19am FH: colon cancer acute November 11:19am acute November 27 11:19am Supervision of normal acute November 27, 2024 11:19am Varicose vein of leg acute November 27, 2024 11:19am Exercise-induced asthma acute A ug2024 10:10am FH: colon cancer acute December 062024 10:10am acute December 25 10:10am Supervision of normal acute December 25 10:10am Varicose vein of leg acute Decu 2024 10:10am Exercise-induced asthma acute S eptember 2024 10:36am FH: colon cancer acute Septembe r 2024 10:36am acute January 10:36am Supervision of normal acute January 22, 2025 10:36am Varicose vein of leg acute Sept ember 2024 10:36am Placenta previa resolved January 22, 2025 10:36am Exercise-induced asthma acute O ctober 2024 8:27am acute February 16, 2025 8:27am Supervision of normal acute February 16 8:27am Varicose vein of leg acute Octo mukul 2024 8:27am Placenta previa resolved February 042024 8:27am [facility] Work Phone: 1(289) 548-968407-24-2025 Progress [facility] [address] [place] [address], [address] [place] [address] OFFICE VISIT Date of Service: 11/27/24 MR#: [id number] Acct: [id number] Name: MARIMAR MIRZA Rep #: [id number] : 2000 Provider: JAY JAY Aleman Age/Sex: 24/F Location: [facility] Status: Signed Intake Vital Signs 09/25/24 08:47 10/20/24 15:14 11/27/24 11:21 11/27/24 11:24 Height 5 ft 6 in 5 ft 6 in 5 ft 6 in 5 ft 6 in Weight: 128 lb 4 oz BMI 20.7 BP 104/63 Intake Visit Reasons: 14wks ob Chief Complaint: 14wk OB Utilities Ground Worker Required: No Is patient in pain?: No Allergies No Known Allergies Allergy (Verified 11/27/24 11:20) Medications ?Medication ?Instructions ?Recorded ?Confirmed ?Type acetaminophen 500 mg tablet 1,000 mg (2 x 500 mg) PO Q 6H PRN 02/19/23 11/27/24 Rx PRN Pain 1-10 Or Fever #0 tabs multivit-min no.71-iron fum 28 cap PO 10/10/24 5 History mg-folate no.1 1 mg-dha 300 mg capsule (PNV-[place]) Last Menstrual Period: 08/14/24 : No PFSH PFSH Surgical History History of mandibular surgery Family History Grandmother Colon cancer, Onset Age: 84 Paternal Social History adopted: No household members: spouse and children housing: house number of children: 2 current occupational status: employed 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 current occupational exposures/hazards: No pets and animals: No history of recent travel: Yes (OR- May) out of state: Yes out of country: No sexually active: Yes Smoking Status: Never smoker alcohol intake: current alcohol intake frequency: holidays/special occasions only details: Not while substance use type: does not use well-balanced diet: daily or most days caffeine: No eating out: 1-3 times/week during the past year weight has: remained stable what type of physical activity do you participate in: walking and running frequency: daily duration: 30-45 minutes/day davide/shinto: Alevism seatbelt use: always do you feel safe at home: Yes 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 Date Name GA/Weeks Outcome Route Bth Weight Gen Labor Lgth Anesthesia Del Locatn Provider FOB 07/19/19 ADOPTED- [facility] 02/18/23 Indie 39 live - full term 7# Female epidu [facility] Dr. Rinku Calderon Delivery Date: 02/18/23 Last Updated by: My Pagan subchorionic hemorrhage 1st trimester HPI 14wks ob Details: MARIMAR MIRZA is a 24 year old who presents for routine OB visit. OB Visit BILL Calculator Estimated Delivery Date Method Current WG Current Estimate 05/21/25 LMP (Certain) 15w 0d Expected Delivery Route/Plan Labor Preferences- CB/BF classes: [] labor support person: [] labor intervention preferences: [] pain management options preferred: [] cut cord/dad catch: [] : [] PP control planned: [] discussed possible routes of delivery and associated risks: [] special requests: [] Specific Issue/Plans Covid status: [] Flu vaccine: [] Tdap vaccine: [] Rhogam: [] LARC form signed: [] Problem list reviewed and updated with the most current plan of care details and appropriate ordersplaced. Relevant counseling for the gestational age provided. Continue routine care and follow up unless otherwise noted in visit notes/problem list details Initial Weight: Not Recorded Date -?-?-?-?-?-?-?-?-?-?-?-?- EGA Weight BP Urine Prot -?-?-?-?-?-?-?-?-?-?-?-?- Glucose FHR FuHt Pres Dilation -?-?-?-?-?-?-?-?-?-?-?-?- Effaced St Visit Note 10/20/24 -?-?-?-?-?-?-?-?-?-?-?-?- 9w 4d 125 lb 8 oz 96/54 -?-?-?-?-?-?-?-?-?-?-?-?- 160 -?-?-?-?-?-?-?-?-?-?-?-?- SM- CRL 3 cons c m with LMP 11/27/24 -?-?-?-?-?-?-?-?-?-?-?-?- 15w 0d 128 lb 4 oz 104/63 -?-?-?-?-?-?-?-?-?-?-?-?- 155 -?-?-?-?-?-?-?-?-?-?-?-?- KW- no vb/crampi ng. US ordered. compression hose for varicose veins ACOG First Trimester First Trimester: Desire for , Alcohol, Tobacco Cessation, Illicit/Recreational Drug/Substance Use, Intimate Partner Violence, Barriers to care, Unstable Housing, Communication Barriers, Environmental/Work Hazards, Anticipated Course of Care, Toxoplasmosis Precations, Use of Any med ications, Sexual activity, Exercise, Dental Care, Sauna/Hot tub use, Seat Belt use, Childbirth classes/Hospital facilities, Travel, Indications for Ultrasound and Screening for Aneuploidy; Discussed ROS Const Reports system reviewed and no additional complaints, except as documented Eyes Reports system reviewed and no additional complaints, except as documented ENT Reports system reviewed and no additional complaints, except as documented Card Reports system reviewed and no additional complaints, except as documented Resp Reports system reviewed and no additional complaints, except as documented GI Reports system reviewed and no additional complaints, except as documented, Denies nausea and Denies vomiting Reports system reviewed and no additional complaints, except as documented Musc Reports system reviewed and no additional complaints, except as documented Skin/Breast Reports system reviewed and no additional complaints, except as documented Neuro Yes system reviewed and no additional complaints, except as documented Psych Reports system reviewed and no additional complaints, except as documented Endo Reports system reviewed and no additional complaints, except as documented Cristino/Lymph Reports system reviewed and no additional complaints, except as documented Aller/Immun Reports system reviewed and no additional complaints, except as documented Exam Const General: cooperative, healthy appearing and no acute distress Orientation: alert, awake and oriented x3 Neck Neck: normal visual inspection and full ROM Resp Effort & Inspection: normal respiratory effort, able to speak in complete sentences and symmetric chest movement GI Inspection: normal to inspection Palpation: soft and other Other: gravid Skin General: no rashes or lesions noted Neuro General: patient alert, patient awake and patient oriented x3 Cognition: normal cognition Speech: speech normal Gait: normal gait Motor: muscle tone normal throughout Extrem General: normal to inspection and full ROM Psych Appearance: grossly normal Mental Status: mental status grossly normal Mood: congruent mood Affect: normal affect Speech and Movement: speech and movement normal Attitude: cooperative Thought Process: normal Thought Content: normal Judgment: judgment good Coding Level of Care Code OB Routine Diagnoses Supervision of normal Z34.90 15 weeks gestation of Z3A.15 Weeks of gestation: 15 weeks FH: colon cancer Z80.0 Exercise-induced asthma J45.990 Varicose vein of leg I83.90 Assessment and Plan Assessment and Plan (1) Supervision of normal : Status: Acute Comment: , BILL 05/21/25, PC Veronica(ADOPTED), Jennifer Fan (2) : Status: Acute Qualifiers: Weeks of gestation: 15 weeks Qualified Code(s): Z3A.15 - 15 weeks gestation of Comment: discussed NIPT & Carrier testing-undecided (3) FH: colon cancer: Status: Acute Comment: 84yo Paternal grandmother- (4) Exercise-induced asthma: Status: Acute (5) Varicose vein of leg: Status: Acute Comment: right leg Orders: Orders POC Urinalysis 2 Dip (Clinic) Today Plan Details Additional Comments: ACOG trimester education reviewed and updated. see problem list details for updated plan management information and see below for orders placed atthis visit. GA appropriate handout given. 11/27/24 1136 s JAY JAY> Date Siddharth Aleman CNM Cosigner Signature: Date (if applicable) CC: ~ [facility]06-16-2025 Evaluation note* Diagnosis Onset Date Resolution Status Admit Date Exercise-induced asthma acute J une 2024 3:10pm FH: colon cancer acute October 3:10pm acute October 20 3:10pm Supervision of normal acute October 20, 2024 3:10pm Varicose vein of leg acute October 20, 2024 3:10pm Exercise-induced asthma acute J sung2024 11:19am FH: colon cancer acute November 11:19am acute November 27 11:19am Supervision of normal acute November 27, 2024 11:19am Varicose vein of leg acute November 27, 2024 11:19am Exercise-induced asthma acute A ug2024 10:10am FH: colon cancer acute December 062024 10:10am acute December 25 10:10am Supervision of normal acute December 25 10:10am Varicose vein of leg acute 2024 10:10am Exercise-induced asthma acute S epte2024 10:36am FH: colon cancer acute Janemb r 2024 10:36am Placenta previa acute January 22, 2025 10:36am acute January 10:36am Supervision of normal acute January 22, 2025 10:36am Varicose vein of leg acute Jan emb2024 10:36am [facility] Work Phone: [phone] 949-869206-16-2025 Progress [facility] [address] [place] [address], [address] [place] [address] OFFICE VISIT Date of Service: 10/20/24 MR#: [id number] Acct: [id number] Name: MARIMAR MIRZA Rep #: [id number] : 2000 Provider: Dr. Oren Cordero MD Age/Sex: 24/F Location: [facility] Status: Signed Intake Vital Signs 02/18/23 04:08 09/25/24 08:47 10/20/24 15:14 Height 5 ft 6 in 5 ft 6 in 5 ft 6 in Weight: 125 lb 8 oz BMI 20.2 BP 96/54 L Intake Visit Reasons: *NEW* NOB LMP 08/14, BILL 05/21 Utilities Ground Worker Required: No Is patient in pain?: No Allergies No Known Allergies Allergy (Verified 10/20/24 15:20) Medications ?Medication ?Instructions ?Recorded ?Confirmed ?Type acetaminophen 500 mg tablet 1,000 mg (2 x 500 mg) PO Q 6H PRN 02/19/23 10/10/24 Rx PRN Pain 1-10 Or Fever #0 tabs multivit-min no.71-iron fum 28 cap PO 10/10/24 5 History mg-folate no.1 1 mg-dha 300 mg capsule (PNV-[place]) Last Menstrual Period: 08/14/24 Zika: Zika virus screening: Negative : No PFSH PFSH Surgical History History of mandibular surgery Family History Grandmother Colon cancer, Onset Age: 84 Paternal Social History adopted: No household members: spouse and children housing: house number of children: 2 current occupational status: employed 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 current occupational exposures/hazards: No pets and animals: No history of recent travel: Yes (OR- September) out of state: Yes out of country: No sexually active: Yes Smoking Status: Never smoker alcohol intake: current alcohol intake frequency: holidays/special occasions only details: Not while substance use type: does not use well-balanced diet: daily or most days caffeine: No eating out: 1-3 times/week during the past year weight has: remained stable what type of physical activity do you participate in: walking and running frequency: daily duration: 30-45 minutes/day davide/shinto: Alevism seatbelt use: always do you feel safe at home: Yes 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 Date Name GA/Weeks Outcome Route Bth Weight Gen Labor Lgth Anesthesia Del Locatn Provider FOB 07/19/19 ADOPTED- [facility] 02/18/23 Indie 39 live - full term 7# Female epidu [facility] Dr. Rinku Calderon Delivery Date: 02/18/23 Last Updated by: My Pagan subchorionic hemorrhage 1st trimester HPI *NEW* NOB LMP 08/14, BILL 05/21 Details: MARIMAR MIRZA is a 24 year old who presents for New OB visit. OB Visit BILL Calculator Estimated Delivery Date Method Current WG Current Estimate 05/21/25 LMP (Certain) 9w 4d Comments: HIV: Urine Culture: Sequential Screen: NIPT Screen: Estimated Due Date: 05/21/25 Expected Delivery Route/Plan Labor Preferences- CB/BF classes: [] labor support person: [] labor intervention preferences: [] pain management options preferred: [] cut cord/dad catch: [] : [] PP control planned: [] discussed possible routes of delivery and associated risks: [] special requests: [] Specific Issue/Plans Covid status: [] Flu vaccine: [] Tdap vaccine: [] Rhogam: [] LARC form signed: [] Problem list reviewed and updated with the most current plan of care details and appropriate ordersplaced. Relevant counseling for the gestational age provided. Continue routine care and follow up unless otherwise noted in visit notes/problem list details Initial Weight: Not Recorded Date -?-?-?-?-?-?-?-?-?-?-?-?- EGA Weight BP Urine Prot -?-?-?-?-?-?-?-?-?-?-?-?- Glucose FHR FuHt Pres Dilation -?-?-?-?-?-?-?-?-?-?-?-?- Effaced St Visit Note 10/20/24 -?-?-?-?-?-?-?-?-?-?-?-?- 9w 4d 125 lb 8 oz 96/54 -?-?-?-?-?-?-?-?-?-?-?-?- 160 -?-?-?-?-?--?-?-?-?-?-?-?- SM- CRL 3 cons c m with LMP Menstrual History Last Menstrual Period: 08/14/24 Reported LMP: definite Normal amount/duration: Yes Frequency in days: 28-30 On hormonal BC at conception: No hCG+: 09/11/24 Antepartum Record Genetic Screening: Congenital Heart Defect: Other, Neural Tube Defect: Other, Hemoglobinopathy Or Carrier: Other, Cystic Fibrosis: Other, Chromosome Abnormality: Other, Evaristo-Sachs: Other, Hemophilia: Other, Intellectual Disability/Autism: Other, Recurrent Loss/Stillbirth: Other, Other Structural Defect: Other, Other Genetic Disease: Other and Maternal Metabolic Disorder: Other Infection History: Live with someone with TB or Exposed to TB: No, Patient or Partner has history of Genital Herpes: No, Rash or Viral illness since last mentrual period: No, Prior GBS-Infected child: No, History of STD: No, HIV Infection: No, History of Hepatitis: No, Recent travel outside of [place]: No, Concern for hepatitis exposure: No, Varicella immune: Yes (immune -vaccinated) and Covid Vaccinated: Yes (J&J 2020, No Boosters) Medical History Medical History: Positive: Varicosities/phlebitis (right leg), Pulmonary (e.g.,TB,Asthma) (asthma exercise induced), Operations/hospitalizations (mandible surgery 2018) and Relevant family history (colon cancer-Paternal Grandmother 84yo,) and Negative: Diabetes, Hypertension, Heart disease, Auto-immune disorder, Kidney disease/UTI, Neurologic/epilepsy, Psychiatric, Depression/ depression, Hepatitis/liver disease, Thyroid dysfunction, Trauma/domestic violence, History of blood transfusions, D (Rh) Sensitized, Seasonal allergies, Drug/latex allergies/reactions, Breast, Network Planner surgery, Anesthetic complications, History of abnormal pap, Uterine anomaly/renu, Infertility, Anti-retroviral treatment and Other ACOG First Trimester First Trimester: Desire for , Alcohol, Tobacco Cessation, Illicit/Recreational Drug/Substance Use, Intimate Partner Violence, Barriers to care, Unstable Housing, Communication Barriers, Environmental/Work Hazards, Anticipated Course of Care, Nurtrition and weight gain, Toxoplasmosis Precations, Use of Any medications, Sexual activity, Exercise, Dental Care, Sauna/Hot tub use, Seat Belt use, Childbirth classes/Hospital facilities, Travel, Indications for Ultrasound and Screening for Aneuploidy; Discussed ROS Const Reports system reviewed and no additional complaints, except as documented, Reports fatigue and Denies fever(s) Eyes Reports system reviewed and no additional complaints, except as documented ENT Reports system reviewed and no additional complaints, except as documented Card Denies chest pain and Denies dyspnea Resp Reports system reviewed and no additional complaints, except as documented, Denies cough and Deniesdyspnea GI Denies abdominal pain and Reports nausea Reports system reviewed and no additional complaints, except as documented Musc Reports system reviewed and no additional complaints, except as documented Skin/Breast Reports system reviewed and no additional complaints, except as documented Neuro Yes system reviewed and no additional complaints, except as documented Psych Reports system reviewed and no additional complaints, except as documented Endo Reports system reviewed and no additional complaints, except as documented and Reports fatigue Exam Const General: healthy appearing, comfortable and no acute distress Orientation: alert HENSC Head: normal to inspection, normocephalic and atraumatic Ears: hearing grossly normal bilaterally and external ears normal Nose: external nose normal and nares normal Mouth: oral mucosae normal Teeth and gingiva: dentition normal Eyes General: appearance normal, both eyes and all related structures Neck Neck: normal visual inspection, no lymphadenopathy and supple Thyroid: thyroid normal Chest Chest palpation & inspection: normal inspection of the chest Breast inspection: normal inspection of the breasts and normal inspection of the axillae Breast palpation: normal palpation of the breasts and normal palpation of the axillae Resp Effort & Inspection: normal respiratory effort GI Inspection: normal to inspection Palpation: soft and no hepatosplenomegaly General: bladder normal to palpation External Female Exam: normal external appearance and normal appearance of the urethra Urethra: normal appearance of the urethra Speculum Exam - Vagina: normal appearance of the vagina and normal vaginal discharge Speculum Exam - Cervix: normal appearance of the cervix Bimanual Exam- Vagina & Uterus: normal bimanual exam, bladder normal to palpation, non-tender and other Bimanual Exam- Adnexa, other: non-tender Skin General: no rashes or lesions noted Neuro Motor: muscle tone normal throughout and no movement abnormalities noted Extrem General: normal to inspection and full ROM Supplemental Info ACOG book given and patient encouraged to read about nutrition, exercise, weight gain, and food avoidance in . Coding Level of Care Code OB Routine Diagnoses Supervision of normal Z34.90 9 weeks gestation of Z3A.09 Weeks of gestation: 9 weeks FH: colon cancer Z80.0 Exercise-induced asthma J45.990 Varicose vein of leg I83.90 Assessment and Plan Assessment and Plan (1) Supervision of normal : Status: Acute Comment: , BILL 05/21/25, SAVITA Martin(ADOPTED), Indtobi Fan (2) : Status: Acute Qualifiers: Weeks of gestation: 9 weeks Qualified Code(s): Z3A.09 - 9 weeks gestation of Comment: discussed NIPT & Carrier testing-undecided (3) FH: colon cancer: Status: Acute Comment: 84yo Paternal grandmother- (4) Exercise-induced asthma: Status: Acute (5) Varicose vein of leg: Status: Acute Comment: right leg Orders: Orders CBC W/Diff, Automated 10/10/24 Z34.90 - Encounter for supervision of normal , unspecified,unspecified trimester Type & Screen 10/10/24 Z34.90 - Encounter for supervision of normal , unspecified, unspecified trimester Rubella IgG 10/10/24 Z34.90 - Encounter for supervision of normal , unspecified, unspecified trimester Hepatitis C Antibody 10/10/24 Z34.90 - Encounter for supervision of normal , unspecified, unspecified trimester Hepatitis B Surface Antigen 10/10/24 Z34.90 - Encounter for supervision of normal , unspecified, unspecified trimester Culture, Urine 10/10/24 Z34.90 - Encounter for supervision of normal , unspecified, unspecified trimester Syphilis Antibodies 10/10/24 Z34.90 - Encounter for supervision of normal , unspecified, unspecified trimester Chlamydia/GC ANALY aptima 10/10/24 Z34.90 - Encounter for supervision of normal , unspecified, unspecified trimester HIV 10/10/24 Z34.90 - Encounter for supervision of normal , unspecified, unspecified trimester PAP I-G w/rfx hrHPV-Aptima 10/10/24 Z12.4 - Encounter for screening for malignant neoplasm of cervix, Z34.90 - Encounter for supervision of normal , unspecified, unspecified trimester Plan Patient oriented to practice and discussed care expectations and screenings. ACOG book offered to patient. Discussed routine and specially indicated labs if needed- patient consents to testing. See problem list details for plan information. Optional screening including maternal carrier screenings, neural tube defect screening, genetic screening options including quad screen, nuchal translucency, sequential screening, and NIPT screening offered to patient and patient chose: declined 10/20/24 1556 shukri SPANN> Date _ Laurie Cordero MD Cosigner Signature: Date (if applicable) CC: ~ [facility]06-16-2025 Progress note Author Laurie Cordero [facility] Services Note Date/Time October 20, 2024 3:56 pm [facility] [address], [address] [place] [address] OFFICE VISIT Date of Service: 10/20/24 MR#: [id number] Acct: [id number] Name: MARIMAR MIRZA Rep #: [id number] : 2000 Provider: Dr. Oren Cordero MD Age/Sex: 24/F Location: [facility] Status: Signed Intake Vital Signs 02/18/23 04:08 09/25/24 08:47 10/20/24 15:14 Height 5 ft 6 in 5 ft 6 in 5 ft 6 in Weight: 125 lb 8 oz BMI 20.2 BP 96/54 L Intake Visit Reasons: *NEW* NOB LMP 08/14, BILL 05/21 Utilities Ground Worker Required: No Is patient in pain?: No Allergies No Known Allergies Allergy (Verified 10/20/24 15:20) Medications ?Medication ?Instructions ?Recorded ?Confirmed ?Type acetaminophen 500 mg tablet 1,000 mg (2 x 500 mg) PO Q 6H PRN 02/19/23 10/10/24 Rx PRN Pain 1-10 Or Fever #0 tabs multivit-min no.71-iron fum 28 cap PO 10/10/24 5 History mg-folate no.1 1 mg-dha 300 mg capsule (PNV-[place]) Last Menstrual Period: 08/14/24 Zika: Zika virus screening: Negative : No PFSH PFSH Surgical History History of mandibular surgery Family History Grandmother Colon cancer, Onset Age: 84 Paternal Social History adopted: No household members: spouse and children housing: house number of children: 2 current occupational status: employed 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 current occupational exposures/hazards: No pets and animals: No history of recent travel: Yes ([place]- September) out of state: Yes out of country: No sexually active: Yes Smoking Status: Never smoker alcohol intake: current alcohol intake frequency: holidays/special occasions only details: Not while substance use type: does not use well-balanced diet: daily or most days caffeine: No eating out: 1-3 times/week during the past year weight has: remained stable what type of physical activity do you participate in: walking and running frequency: daily duration: 30-45 minutes/day davide/shinto: Alevism seatbelt use: always do you feel safe at home: Yes 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 Date Name GA/Weeks Outcome Route Bth Weight Infant Gen Labor Lgth Anesthesia Del Locatn Provider FOB 07/19/19 ADOPTED- [facility] 02/18/23 Indie 39 live - full term 7# Female epidu [facility] Dr. Rinku Calderon Delivery Date: 02/18/23 Last Updated by: My Pagan subchorionic hemorrhage 1st trimester HPI *NEW* NOB LMP 08/14, BILL 05/21 Details: MARIMAR MIRZA is a 24 year old who presents for New OB visit. OB Visit BILL Calculator Estimated Delivery Date Method Current WG Current Estimate 05/21/25 LMP (Certain) 9w 4d Comments: HIV: Urine Culture: Sequential Screen: NIPT Screen: Estimated Due Date: 05/21/25 Expected Delivery Route/Plan Labor Preferences- CB/BF classes: [] labor support person: [] labor intervention preferences: [] pain management options preferred: [] cut cord/dad catch: [] : [] PP control planned: [] discussed possible routes of delivery and associated risks: [] special requests: [] Specific Issue/Plans Covid status: [] Flu vaccine: [] Tdap vaccine: [] Rhogam: [] LARC form signed: [] Problem list reviewed and updated with the most current plan of care details and appropriate orders placed. Relevant counseling for the gestational age provided. Continue routine care and follow up unless otherwise noted in visit notes/problem list details Initial Weight: Not Recorded Date -?-?-?-?-?-?-?-?-?-?-?-?- EGA Weight BP Urine Prot -?-?-?-?-?-?-?-?-?-?-?-?- Glucose FHR FuHt Pres Dilation -?-?-?-?-?-?-?-?-?-?-?-?- Effaced St Visit Note 10/20/24 -?-?-?-?-?-?-?-?-?-?-?-?- 9w 4d 125 lb 8 oz 96/54 -?-?-?-?-?-?-?-?-?-?-?-?- 160 -?-?-?-?-?--?-?-?-?-?-?-?- SM- CRL 3 cons c m with LMP Menstrual History Last Menstrual Period: 08/14/24 Reported LMP: definite Normal amount/duration: Yes Frequency in days: 28-30 On hormonal BC at conception: No hCG+: 09/11/24 Antepartum Record Genetic Screening: Congenital Heart Defect: Other, Neural Tube Defect: Other, Hemoglobinopathy Or Carrier: Other, Cystic Fibrosis: Other, Chromosome Abnormality: Other, Evaristo-Sachs: Other, Hemophilia: Other, Intellectual Disability/Autism: Other, Recurrent Loss/Stillbirth: Other, Other Structural Defect: Other, Other Genetic Disease: Other and Maternal Metabolic Disorder: Other Infection History: Live with someone with TB or Exposed to TB: No, Patient or Partner has history of Genital Herpes: No, Rash or Viral illness since last mentrual period: No, Prior GBS-Infected child: No, History of STD: No, HIV Infection: No, History of Hepatitis: No, Recent travel outside of [place]: No, Concern for hepatitis exposure: No, Varicella immune: Yes (immune -vaccinated) and Covid Vaccinated: Yes (J&J 2020, No Boosters) Medical History Medical History: Positive: Varicosities/phlebitis (right leg), Pulmonary (e.g.,TB,Asthma) (asthma exercise induced), Operations/hospitalizations (mandible surgery 2018) and Relevant family history (colon cancer-Paternal Grandmother 84yo,) and Negative: Diabetes, Hypertension, Heart disease, Auto-immune disorder, Kidney disease/UTI, Neurologic/epilepsy, Psychiatric, Depression/ depression, Hepatitis/liver disease, Thyroid dysfunction, Trauma/domestic violence, History of blood transfusions, D (Rh) Sensitized, Seasonal allergies, Drug/latex allergies/reactions, Breast, Network Planner surgery, Anesthetic complications, History of abnormal pap, Uterine anomaly/renu, Infertility, Anti-retroviral treatment and Other ACOG First Trimester First Trimester: Desire for , Alcohol, Tobacco Cessation, Illicit/Recreational Drug/Substance Use, Intimate Partner Violence, Barriers to care, Unstable Housing, Communication Barriers, Environmental/Work Hazards, Anticipated Course of Care, Nurtrition and weight gain, Toxoplasmosis Precations, Use of Any medications, Sexual activity, Exercise, Dental Care, Sauna/Hot tub use, Seat Belt use, Childbirth classes/Hospital facilities, Travel, Indications for Ultrasound and Screening for Aneuploidy; Discussed ROS Const Reports system reviewed and no additional complaints, except as documented, Reports fatigue and Denies fever(s) Eyes Reports system reviewed and no additional complaints, except as documented ENT Reports system reviewed and no additional complaints, except as documented Card Denies chest pain and Denies dyspnea Resp Reports system reviewed and no additional complaints, except as documented, Denies cough and Denies dyspnea GI Denies abdominal pain and Reports nausea Reports system reviewed and no additional complaints, except as documented Musc Reports system reviewed and no additional complaints, except as documented Skin/Breast Reports system reviewed and no additional complaints, except as documented Neuro Yes system reviewed and no additional complaints, except as documented Psych Reports system reviewed and no additional complaints, except as documented Endo Reports system reviewed and no additional complaints, except as documented and Reports fatigue Exam Const General: healthy appearing, comfortable and no acute distress Orientation: alert HENMT Head: normal to inspection, normocephalic and atraumatic Ears: hearing grossly normal bilaterally and external ears normal Nose: external nose normal and nares normal Mouth: oral mucosae normal Teeth and gingiva: dentition normal Eyes General: appearance normal, both eyes and all related structures Neck Neck: normal visual inspection, no lymphadenopathy and supple Thyroid: thyroid normal Chest Chest palpation & inspection: normal inspection of the chest Breast inspection: normal inspection of the breasts and normal inspection of the axillae Breast palpation: normal palpation of the breasts and normal palpation of the axillae Resp Effort & Inspection: normal respiratory effort GI Inspection: normal to inspection Palpation: soft and no hepatosplenomegaly General: bladder normal to palpation External Female Exam: normal external appearance and normal appearance of the urethra Urethra: normal appearance of the urethra Speculum Exam - Vagina: normal appearance of the vagina and normal vaginal discharge Speculum Exam - Cervix: normal appearance of the cervix Bimanual Exam- Vagina & Uterus: normal bimanual exam, bladder normal to palpation, non-tender and other Bimanual Exam- Adnexa, other: non-tender Skin General: no rashes or lesions noted Neuro Motor: muscle tone normal throughout and no movement abnormalities noted Extrem General: normal to inspection and full ROM Supplemental Info ACOG book given and patient encouraged to read about nutrition, exercise, weight gain, and food avoidance in . Coding Level of Care Code OB Routine Diagnoses Supervision of normal Z34.90 9 weeks gestation of Z3A.09 Weeks of gestation: 9 weeks FH: colon cancer Z80.0 Exercise-induced asthma J45.990 Varicose vein of leg I83.90 Assessment and Plan Assessment and Plan (1) Supervision of normal : Status: Acute Comment: , BILL 05/21/25, PC Veronica(ADOPTED), [employer] (2) : Status: Acute Qualifiers: Weeks of gestation: 9 weeks Qualified Code(s): Z3A.09 - 9 weeks gestation of Comment: discussed NIPT & Carrier testing-undecided (3) FH: colon cancer: Status: Acute Comment: 84yo Paternal grandmother- (4) Exercise-induced asthma: Status: Acute (5) Varicose vein of leg: Status: Acute Comment: right leg Orders: Orders CBC W/Diff, Automated 10/10/24 Z34.90 - Encounter for supervision of normal , unspecified, unspecified trimester Type & Screen 10/10/24 Z34.90 - Encounter for supervision of normal , unspecified, unspecified trimester Rubella IgG 10/10/24 Z34.90 - Encounter for supervision of normal , unspecified, unspecified trimester Hepatitis C Antibody 10/10/24 Z34.90 - Encounter for supervision of normal , unspecified, unspecified trimester Hepatitis B Surface Antigen 10/10/24 Z34.90 - Encounter for supervision of normal , unspecified, unspecified trimester Culture, Urine 10/10/24 Z34.90 - Encounter for supervision of normal , unspecified, unspecified trimester Syphilis Antibodies 10/10/24 Z34.90 - Encounter for supervision of normal , unspecified, unspecified trimester Chlamydia/GC ANALY aptima 10/10/24 Z34.90 - Encounter for supervision of normal , unspecified, unspecified trimester HIV 10/10/24 Z34.90 - Encounter for supervision of normal , unspecified, unspecified trimester PAP I-G w/rfx hrHPV-Aptima 10/10/24 Z12.4 - Encounter for screening for malignant neoplasm of cervix, Z34.90 - Encounter for supervision of normal , unspecified, unspecified trimester Plan Patient oriented to practice and discussed care expectations and screenings. ACOG book offered to patient. Discussed routine and specially indicated labs if needed- patient consents to testing. See problem list details for plan information. Optional screening including maternal carrier screenings, neural tube defect screening, genetic screening options including quad screen, nuchal translucency, sequential screening, and NIPT screening offered to patient and patient chose: declined 10/20/24 9100 <Electronically signed by Laurie watt MD> Date _ Laurie Cordreo MD Cosigner Signature: Date (if applicable) CC: ~ [facility] Work Phone: 1(707) 808-505605-22-2025 Evaluation note* Diagnosis Onset Date Resolution Status Admit Date Vaginal delivery inactive September 8:31am Exercise-induced asthma acute J une 2024 3:10pm FH: colon cancer acute October 3:10pm acute October 20 3:10pm Supervision of normal acut e October 20, 2024 3:10pm Varicose vein of leg acute October 20, 2024 3:10pm [facility] Work Phone: 1(342) 308-640005-22-2025 Evaluation note* Diagnosis Onset Date Resolution Status Admit Date Vaginal delivery inactive September 8:31am Exercise-induced asthma acute J une 2024 3:10pm FH: colon cancer acute October 3:10pm acute October 20 3:10pm Supervision of normal acute October 20, 2024 3:10pm Varicose vein of leg acute October 20, 2024 3:10pm Exercise-induced asthma acute J sung 2024 11:19am FH: colon cancer acute November 11:19am acute November 27 11:19am Supervision of normal acute November 27, 2024 11:19am Varicose vein of leg acute November 27, 2024 11:19am [facility] [facility] Work Phone: 1(596) 938-400305-22-2025 Evaluation note* Diagnosis Onset Date Resolution Status Admit Date Vaginal delivery inactive September 8:31am Exercise-induced asthma acute J une 2024 3:10pm FH: colon cancer acute October 3:10pm acute October 20 3:10pm Supervision of normal acute October 20, 2024 3:10pm Varicose vein of leg acute October 20, 2024 3:10pm Exercise-induced asthma acute J sung 2024 11:19am FH: colon cancer acute November 11:19am acute November 27 11:19am Supervision of normal acute November 27, 2024 11:19am Varicose vein of leg acute November 27, 2024 11:19am Exercise-induced asthma acute A ugust 2024 10:10am FH: colon cancer acute December 062024 10:10am acute December 25, 025 10:10am Supervision of normal acute December 25 10:10am Varicose vein of leg acute Augu st 2024 10:10am [facility] [employer] [facility] Work Phone: [phone] Telephone encounter Note* Telephone Encounter - Tala Sinclair RN - 05/26/2024 4:49 PM EST Patient notified. Appointment given with THOMAS on Sunday. Tala Sinclair RN [facility]01-20-2025 Miscellaneous Notes* Telephone Encounter - Tala Sinclair RN - 05/26/2024 4:49 PM EST Patient notified. Appointment given with THOMAS on Sunday. Tala Sinclair RN * Telephone Encounter - Yee Diaz MD - 05/26/2024 4:46 PM EST Ordered and needs visit this week thanks * Telephone Encounter - Ava Burrell RN - 05/26/2024 4:09 PM EST LMP /15/24 - 5w1d Calling because she started bleeding this morning. It started shortly after she worked out this morning. Initially was spotting and now is more of a light flow, bright red in color. Having dull lowerback ache and intermittent mild cramping throughout pelvis. Last intercourse 05/24. Hcg quant orderspending if needed. Ava Burrell RN documented in [facility] Telephone encounter Note * Telephone Encounter - Yee Diaz MD - 05/26/2024 4:46 PM EST Ordered and needs visit this week thanks [facility] Work Phone: 1([phone]) 377-193901-20-2025 Telephone encounter Note* Telephone Encounter - Ava Burrell RN - 05/26/2024 4:09 PM EST LMP 04/20/24 - 5w1d Calling because she started bleeding this morning. It started shortly after she worked out this morning. Initially was spotting and now is more of a light flow, bright red in color. Having dull lowerback ache and intermittent mild cramping throughout pelvis. Last intercourse 05/24. Hcg quant orderspending if needed. Ava Burrell RN [facility]01-09-2025 NoteHNO ID: [id number] Author: DIDIER DASILVA MD Service: ? Author Type: Physician Type: Progress Notes Filed: 05/15/2024 11:55 Note Text: Marimar is a 23 year old who presents for an annual gynecologic exam without complaints. Menses: cycles every 28 days and 4 days of flow, some cramps. Menstrual flow: Moderate OB History T1 L1 SAB0 IAB0 Ectopic0 Multiple0 Live Births1 Network Planner History LMP: 04/20/2024 (Exact Date), Having periods Age at Menarche: Age at First : Age at Menopause: Network Planner History Comments: Sexual Activity: Yes; Male Contraception: No contraception data on record PAST MEDICAL HISTORY Diagnosis Date Asthma exercise induced asthma PAST SURGICAL HISTORY Procedure Laterality Date PAST SURGICAL HISTORY OF jaw-bite correction FAMILY HISTORY Problem Relation Age of Onset No Known Problems Mother No Known Problems Father No Known Problems Sister No Known Problems Sister No Known Problems Sister No Known Problems Brother No Known Problems Brother No Known Problems Brother No Known Problems Brother No Known Problems Brother No Known Problems Brother No Known Problems Brother Accidental Maternal Grandmother No Known Problems Maternal Grandfather Colon Cancer Paternal Grandmother Multiple Sclerosis Paternal Grandfather SOCIAL HISTORY Social History Tobacco Use Smoking status: Never Smokeless tobacco: Never Vaping Use Vaping status: Never Used Substance Use Topics Alcohol use: Not Currently Alcohol/week: 1.0 standard drink of alcohol Types: 1 Glasses of wine per week Drug use: Never REVIEW OF SYSTEMS Abdomen: No abdominal pain, nausea, vomiting, diarrhea, or constipation. No bloating, early satiety, indigestion, or increased flatulence. Bladder: No dysuria, gross hematuria, urinary frequency, urinary urgency, or incontinence. Breast: No breast lumps, nipple d/c, overlying skin changes, redness or skin retraction. Allergies and current medication updated:Yes SENSITIVE EXAM: The sensitive examination was discussed with the Patient or Patient's Authorized Behavior Support Specialist. As applicable, any other physician, advance practice provider, medical student, or other health professional student that will be observing or involved in the sensitive examination for educational or training purposes was discussed with the Patient or Authorized Behavior Support Specialist. The Patient or Authorized Behavior Support Specialist has agreed to proceed with the sensitive examination. (Sensitive examination includes inspection and/or palpation of the breasts, pelvis, prostate and anorectal regions). EXAM: BP 100/58 Ht 5' 7 (1.70m) Wt 125 lb (56.7kg) LMP 04/20/2024 BMI 19.57 kg/(m2). GENERAL: pleasant, female in no apparent distress HEENT: Normocephalic, atraumatic, mucus membranes moist, and no lesions NECK: Supple, full range of motion, no adenopathy, and thyroid normal DERMATOLOGY: Normal, without lesions, non-icteric, and non-hirsute BREAST: soft, non-tender, symmetric, no dominant mass, normal nipple-areolar complex, no lymphadenopathy, and no nipple discharge CHEST: Normal inspiratory effort ABDOMEN: soft, non-tender, and no masses PELVIC: external genitalia normal, normal Bartholin's glands, urethra, Warsaw's glands, no vulvar lesions, no cervical lesions, good vaginal support, physiologic discharge present, normal appearing perineal body and perianal region BIMANUAL: uterus normal size, shape and consistency, no adnexal masses, and non-tender RECTOVAGINAL: deferred. NEURO: alert and oriented x3,exam grossly non-focal EXTREMITIES: normal ASSESSMENT/PLAN: 1) Health maintenance: Pap/HPV up to date. had gardasil vaccines 2) Contraception: none. Contraceptive options reviewed and information provided. 3) STD screening: Declined STD check. 4) Follow up one year or sooner as needed Didier Dasilva [facility]01-09-2025 History of Present illness Narrative* Didier Dasilva MD - 05/15/2024 11:39 AM EST Marimar is a 23 year old who presents for an annual gynecologic exam without complaints. Menses: cycles every 28 days and 4 days of flow, some cramps. Menstrual flow: Moderate OB History T1 L1 SAB0 IAB0 Ectopic0 Multiple0 Live Births1 Network Planner History LMP: 04/20/2024 (Exact Date), Having periods Age at Menarche: Age at First : Age at Menopause: Network Planner History Comments: Sexual Activity: Yes; Male Contraception: No contraception data on record PAST MEDICAL HISTORY Diagnosis Date Asthma exercise induced asthma PAST SURGICAL HISTORY Procedure Laterality Date PAST SURGICAL HISTORY OF jaw-bite correction FAMILY HISTORY Problem Relation Age of Onset No Known Problems Mother No Known Problems Father No Known Problems Sister No Known Problems Sister No Known Problems Sister No Known Problems Brother No Known Problems Brother No Known Problems Brother No Known Problems Brother No Known Problems Brother No Known Problems Brother No Known Problems Brother Accidental Maternal Grandmother No Known Problems Maternal Grandfather Colon Cancer Paternal Grandmother Multiple Sclerosis Paternal Grandfather SOCIAL HISTORY Social History Tobacco Use Smoking status: Never Smokeless tobacco: Never Vaping Use Vaping status: Never Used Substance Use Topics Alcohol use: Not Currently Alcohol/week: 1.0 standard drink of alcohol Types: 1 Glasses of wine per week Drug use: Never REVIEW OF SYSTEMS Abdomen: No abdominal pain, nausea, vomiting, diarrhea, or constipation. No bloating, early satiety, indigestion, or increased flatulence. Bladder: No dysuria, gross hematuria, urinary frequency, urinary urgency, or incontinence. Breast: No breast lumps, nipple d/c, overlying skin changes, redness or skin retraction. Allergies and current medication updated:Yes SENSITIVE EXAM: The sensitive examination was discussed with the Patient or Patient's Authorized Behavior Support Specialist. As applicable, any other physician, advance practice provider, medical student, or other health professional student that will be observing or involved in the sensitive examination for educational or training purposes was discussed with the Patient or Authorized Behavior Support Specialist. The Patient or Authorized Behavior Support Specialist has agreed to proceed with the sensitive examination. (Sensitive examination includes inspection and/or palpation of the breasts, pelvis, prostate and anorectal regions). EXAM: BP 100/58 Ht 5' 7 (1.70m) Wt 125 lb (56.7kg) LMP 04/20/2024 BMI 19.57 kg/(m^2). GENERAL: pleasant, female in no apparent distress HEENT: Normocephalic, atraumatic, mucus membranes moist, and no lesions NECK: Supple, full range of motion, no adenopathy, and thyroid normal DERMATOLOGY: Normal, without lesions, non-icteric, and non-hirsute BREAST: soft, non-tender, symmetric, no dominant mass, normal nipple-areolar complex, no lymphadenopathy, and no nipple discharge CHEST: Normal inspiratory effort ABDOMEN: soft, non-tender, and no masses PELVIC: external genitalia normal, normal Bartholin's glands, urethra, Warsaw's glands, no vulvar lesions, no cervical lesions, good vaginal support, physiologic discharge present, normal appearing perineal body and perianal region BIMANUAL: uterus normal size, shape and consistency, no adnexal masses, and non-tender RECTOVAGINAL: deferred. NEURO: alert and oriented x3,exam grossly non-focal EXTREMITIES: normal ASSESSMENT/PLAN: 1) Health maintenance: Pap/HPV up to date. had gardasil vaccines 2) Contraception: none. Contraceptive options reviewed and information provided. 3) STD screening: Declined STD check. 4) Follow up one year or sooner as needed Didier Dasilva MD [facility] Telephone encounter Note * Telephone Encounter - Tala Sinclair RN - 03/11/2024 5:00 PM EST Patient called back. Rescheduled appointment. Tala Sinclair RN [facility]11-05-2024 Miscellaneous Notes* Telephone Encounter - Tala Sinclair RN - 03/11/2024 5:00 PM EST Patient called back. Rescheduled appointment. Tala Sinclair RN * Telephone Encounter - Tala Sinclair RN - 03/11/2024 4:48 PM EST Left message for patient to call office. Patient has annual exam with RR on 04/08 @ 0840. RR now hasa 0715 . Can patient come at a later time that day? Tala Sinclair RN documented in this encounterMer[facility]11-[facility]-2024 Telephone encounter Note * Telephone Encounter - Tala Sinclair RN - 03/11/2024 4:48 PM EST Left message for patient to call office. Patient has annual exam with RR on 04/08 @ 0840. RR now hasa 0715 . Can patient come at a later time that day? Tala Sinclair RN [facility]03-20-2024 Miscellaneous Notes* Telephone Encounter - Lyubov Ramirez RN - 07/25/2023 8:09 AM EDT Received refill request from pharmacy. Patient seen for pp visit 04/02/2023. documented in this encounterMer[facility]11-27-[facility]23 History of Present illness Narrative* Didier Dasilva MD - 04/02/2023 11:42 AM EST VISIT Marimar Mirza is a 22 year old year old here for visit. Delivery Summary: ROS/ Recovery: Feeding: Breast feeding problems: None Menses since delivery: n/a Menstrual pattern prior to : Irregular periods [place] since delivery: Not resumed Depression: denies symptoms of depression. OB Depression and Anxiety Screening- This Encounter (since 04/01/2023) Over the past 2 weeks have you felt down, depressed, or hopeless? Negative Over the past two weeks, have you felt little interest or pleasure in doing things? Negative Feeling nervous, anxious or on edge 0-Not at all Not being able to stop or control worrying 0-Not al all Anxiety Pre-Screening Total (If >/= 3 additional questions will be reviewed) 0 Emotional support: Yes Bowel symptoms: Negative for abdominal discomfort, blood in stools or black stools and change in bowel habits Abdomen: N/A Bladder symptoms: No dysuria, gross hematuria, urinary frequency, urinary urgency, or incontinence Other issues: None Last Pap: 2021 normal HPV: N/A PAST MEDICAL HISTORY Diagnosis Date Asthma exercise induced asthma PAST SURGICAL HISTORY Procedure Laterality Date PAST SURGICAL HISTORY OF jaw-bite correction FAMILY HISTORY Problem Relation Age of Onset No Known Problems Mother No Known Problems Father No Known Problems Sister No Known Problems Sister No Known Problems Sister No Known Problems Brother No Known Problems Brother No Known Problems Brother No Known Problems Brother No Known Problems Brother No Known Problems Brother No Known Problems Brother Accidental Maternal Grandmother No Known Problems Maternal Grandfather Colon Cancer Paternal Grandmother Multiple Sclerosis Paternal Grandfather Social History Tobacco Use Smoking status: Never Smokeless tobacco: Never Vaping Use Vaping Use: Never used Substance Use Topics Alcohol use: Not Currently Alcohol/week: 1.0 standard drink of alcohol Types: 1 Glasses of wine per week Drug use: Never PHYSICAL EXAMINATION: BP 96/52 Ht 5' 7 (1.70m) Wt 129 lb (58.5kg) LMP 05/16/2022 BMI 20.20 kg/(m^2). GENERAL: pleasant, female in no apparent distress HEENT: Normocephalic, atraumatic, mucus membranes moist, and no lesions NECK: Supple, full range of motion, no adenopathy, and thyroid normal DERMATOLOGY: Normal, without lesions, non-icteric, and non-hirsute BREAST: soft, non-tender, symmetric, no dominant mass, normal nipple-areolar complex, no lymphadenopathy, and no nipple discharge CHEST: Normal inspiratory effort ABDOMEN: soft, non-tender, and no masses. INCISION: N/A PELVIC: external genitalia normal, normal Bartholin's glands, urethra, Warsaw's glands, no vulvar lesions, no cervical lesions, good vaginal support, physiologic discharge present, normal appearing perineal body and perianal region BIMANUAL: uterus normal size, shape and consistency, no adnexal masses, and non-tender NEURO: alert and oriented x3,exam grossly non-focal EXTREMITIES: normal ASSESSMENT AND PLAN: 22 year old status post with normal course. Contraception plan: Oral contraceptives Follow up: RTC for annual exams and PRN Didier Dasilva MD documented in this encounterMer[facility]10-16-2023 Discharge summary Author Tamra Diaz [facility] February 19, 2023 1:10pm Note Date/Time February 19, 2023 1 :07pm [facility] Medical Records Department [address] [place] [id number] Discharge Summary 02/19/23 1306 MR#: [id number] Acct: [id number] Name: MARIMAR MIRZA Rep #:[id number] : 2000 22 From: Tamra WISEMAN PCP: Status:ADM IN Location: [id number] Providers Date of Admission: 02/18/23 Date of Discharge: 02/19/23 Reason For Visit: VAG DELIVERY Diagnosis Discharge Diagnosis (1) Vaginal delivery: Status: Acute Code(s): O80 - Encounter for full-term uncomplicated delivery Plan 1) D/C home today 2) Follow up 2 week and 6 week PP Medications at Discharge Home Medications acetaminophen 500 mg tablet 1,000 mg (2 x 500 mg) PO Q6H PRN PRN Pain 1-10 Or Fever #0 tabs 02/19/23 ibuprofen 600 mg tablet 600 mg PO Q6H PRN PRN Pain Score 1-3 #0 tabs 02/19/23 Hospital Course Summary of Care Provided Minutes Spent on Discharge: 15 Weight / BMI Weight Weight: 144 lb Body Mass Index (BMI) 23.2 ABG / Lab / Microbiology Data 02/18/23 04:20 Meaningful Use Info Meaningful Use Diagnoses (Choose all that apply): None applicable Discharge Plan Admission Admit Date/Time: 02/18/23 03:58 Primary Reason for Your Visit: Vaginal Delivery Attending Provider: Didier Dasilva Discharge Orders/Prescriptions Prescriptions: New acetaminophen 500 mg Tablet 1,000 mg PO Q6H PRN PRN (Reason: Pain 1-10 Or Fever) Qty: 0 0RF ibuprofen 600 mg Tablet 600 mg PO Q6H PRN PRN (Reason: Pain Score 1-3) Qty: 0 0RF Referrals / Follow Up: Didier Dasilva MD [Med Staff - Active Staff] - (Follow up in 2 weeks and 6 weeks for visit) Disposition Disposition (needs filled in before D/C Order can be placed): Home, Self Care 02/19/23 1310 <Electronically signed by Tamra Diaz CNM> Cosigner Signature (if applicable): CC: JAY JAY Diaz~ Signed [facility] Work Phone: 1(871) 322-226210-16-2023 Progress note Author Tamra Diaz [facility] February 19, 2023 1:06pm Note Date/Time February 19, 2023 1 2:56pm [facility] Medical Records Department [address] [place] [address] Progress Note - OBGYN 02/19/23 1253 MR#: [id number] Acct: [id number] Name: MARIMAR MIRZA Rep #:[id number] : 2000 22 From: Tamra WISEMAN PCP: Status:ADM IN [facility] Subjective Subjective Doing well per patient and nursing staff. Ambulating and taking PO without difficulty. Voiding and passing flatus. Pain controlled. Denies headache, visualchanges, chest pain, shortness of breath, leg pain or increased bleeding. Lochianormal. Objective Data Objective Data Vital Signs: Vital Signs Temp Pulse Resp BP Pulse Ox O2 Del Method 98.1 F 61 18 114/68 98 Room Air 02/19/23 12:07 02/19/23 12:07 02/19/23 12:07 02/19/23 12:07 02/19/23 08:17 02/19/23 12:07 Oxygen Delivery Method Room Air Weight: 144 lb Body Mass Index (BMI) 23.2 Intake & Output: Intake and Output for Last 24 Hours 02/17/23 02/18/23 02/19/23 23:59 23:59 23:59 Intake Total 7000.00 / 7000.00 800 / 800 Output Total 2850 / 2850 1700 / 1700 Balance 4150.00 / 4150.00 -900 / -900 Lab / Micro Data 02/18/23 04:20 ROS Constitutional Constitutional: Reports systems reviewed and no addt'l complaints, except as documented; Denies headache(s) Eyes Eyes: Denies acute decrease in peripheral vision, blurry vision or change in vision ENT HEENT: Reports systems reviewed and no addt'l complaints, except as documented Cardiovascular Cardiovascular: Denies chest pain or dizziness Respiratory/Chest Respiratory/Chest: Denies cough, dyspnea, dyspnea on exertion, shortness of breath at rest or shortness of breath with exertion Gastrointestinal Gastrointestinal: Denies abdominal pain, diarrhea, nausea or vomiting Genitourinary Genitourinary: Denies abdominal discomfort Musculoskeletal Musculoskeletal: Denies limited range of motion Integumentary Integumentary: Reports systems reviewed and no addt'l complaints, except as documented Neurologic Neurologic: Reports systems reviewed and no addt'l complaints, except as documented Psychiatric Psychiatric: Reports systems reviewed and no addt'l complaints, except as documented Endocrine Endocrinology: Reports systems reviewed and no addt'l complaints, except as documented Hematologic/Lymphatic Hematologic/Lymphatic: Reports systems reviewed and no addt'l complaints, exceptas documented Allergic/Immunologic Allergic/Immunologic: Reports systems reviewed and no addt'l complaints, except as documented Physical Exam Const alert and oriented x3 General Appearance: cooperative Orientation / Consciousness: awake, oriented to person, oriented to place and oriented to time Exam Limitations: no limitations HEENT normocephalic Head and Scalp: normal to inspection, normocephalic and atraumatic Face and Sinus: normal facial exam Eyes General Eye: normal appearance of both eyes Neck full ROM Chest Chest: symmetrical chest wall rise Resp normal respiratory effort and normal air movement Auscultation: clear to auscultation bilaterally Cardio regular rate, regular rhythm, S1 normal heart sound, S2 normal heart sound, no murmurs, no rub, no gallops and no clicks GI normal to inspection, nondistended, normoactive bowel sounds and non-tender appearance of the vagina normal Bladder / Kidney Exam: no CVA tenderness Back/Spine normal ROM Extremity normal to inspection and full ROM Skin no rashes or lesions noted Neuro oriented x3, CN's II-XII intact bilaterally and moves all extremities Sensorium / Orientation: awake, alert and oriented to person Motor Exam: clonus absent Deep Tendon Reflexes: Rt Patellar (L4): 2+ and Lt Patellar (L4): 2+ Assessment & Plan (1) Vaginal delivery: PLAN: Plan 1) D/C home today 2) Follow up 2 week and 6 week PP 02/19/23 1306 <Electronically signed by Tamra Diaz CNM> Cosigner Signature (if applicable): CC: ~ Signed [facility] Work Phone: 1(588) 443-795810-16-2023 Hospital Discharge instructions Additional Instructions Date of Discharge: 02/19/23[facility] Work Phone: 1(591) 211-614610-16-2023 History of Present illness Narrative* Ava Burrell RN - 02/19/2023 1:08 PM EDT Patient delivered via by Dr. Dasilva on 02/18/23 at [facility]. See OB history. Ava Burrell RN documented in this encounterMer[facility]10-[facility]-2023 Procedure [facility] History and physical note Author Didier Dasilva [facility] February 18, 2023 10:01am Note Date/Time February 18, 2023 1 0:01am [facility] Medical Records Department [address] [place] [address] H&P Exam - PLUSH BRUSHER 02/18/23 0953 MR#: [id number] Acct: [id number] Name: MARIMAR MIRZA Rep #:[id number] : 2000 22 From: Didier Dasilva MD PCP: Status:ADM IN Location: [id number] HPI - General General Date of Admission: 02/18/23 Date of Service: 02/18/23 Chief Complaint: labor HPI Narrative MARIMAR MIRZA, is a 22 F who presents c/o ctxs and SROM. SROM approx midnight. Denies gross vaginal bleeding. is uncomplicated to date other than she has been diagnosed with gestational thrombocytopenia. Platelets have remained above 100. Maternal Data Information Final BILL: 02/27/23 Gestational age: 38 5/7 PFSH PFSH Medical History no medical history Allergy/AdvReac Type Severity Reaction Status Date / Time No Known Allergies Allergy Verified 02/18/23 03:26 Family History no significant family his Surgical History no surgical history Social History Smoking Status: Never smoker History Elective abortions Hx Para 0 Spontaneous abortions Hx # Term Pregnancies Ectopic pregnancies Hx # Pregnancies Multiple births # of living children ROS Constitutional Constitutional: Denies fatigue, fever(s) or malaise Eyes Eyes: Denies change in vision ENT HEENT: Denies dizziness or headache(s) Cardiovascular Cardiovascular: Denies chest pain, dyspnea or lightheadedness Respiratory/Chest Respiratory/Chest: Denies cough or dyspnea Gastrointestinal Gastrointestinal: Denies change in bowel habits Genitourinary Genitourinary: Denies burning urination or genital lesions Integumentary Integumentary: Denies rash Neurologic Neurologic: Denies confusion, dizziness, headache(s), numbness or weakness Vital Signs Vital Signs Vital Signs: 02/18/23 03:25 02/18/23 03:25 02/18/23 03:26 Temperature Temperature Source Temporal Pulse Rate 67 Blood Pressure 121/73 H BP Systolic 121 BP Diastolic 73 Pulse Ox 02/18/23 03:26 02/18/23 05:05 02/18/23 05:05 Temperature 99.2 F H Temperature Source Pulse Rate 65 Blood Pressure BP Systolic BP Diastolic Pulse Ox 98 02/18/23 05:10 02/18/23 05:10 02/18/23 05:12 Temperature Temperature Source Pulse Rate 81 Blood Pressure 130/81 H BP Systolic 130 BP Diastolic 81 Pulse Ox 98 02/18/23 05:12 02/18/23 05:15 02/18/23 05:15 Temperature Temperature Source Pulse Rate 82 80 Blood Pressure BP Systolic BP Diastolic Pulse Ox 98 02/18/23 05:16 02/18/23 05:16 02/18/23 05:20 Temperature Temperature Source Pulse Rate 82 96 Blood Pressure 127/82 H BP Systolic 127 BP Diastolic 82 Pulse Ox 02/18/23 05:20 02/18/23 05:22 02/18/23 05:22 Temperature Temperature Source Pulse Rate 68 Blood Pressure 121/74 H BP Systolic 121 BP Diastolic 74 Pulse Ox 98 02/18/23 05:26 02/18/23 05:26 02/18/23 05:25 Temperature Temperature Source Pulse Rate 59 L Blood Pressure 100/56 L BP Systolic 100 BP Diastolic 56 Pulse Ox 98 02/18/23 05:31 02/18/23 05:31 02/18/23 05:30 Temperature Temperature Source Pulse Rate 63 Blood Pressure 102/58 L BP Systolic 102 BP Diastolic 58 Pulse Ox 97 02/18/23 05:35 02/18/23 05:35 02/18/23 05:40 Temperature Temperature Source Pulse Rate 64 60 Blood Pressure BP Systolic BP Diastolic Pulse Ox 97 02/18/23 05:40 02/18/23 05:41 02/18/23 05:41 Temperature Temperature Source Pulse Rate 59 L Blood Pressure 103/57 L BP Systolic 103 BP Diastolic 57 Pulse Ox 97 02/18/23 05:42 02/18/23 05:42 02/18/23 05:45 Temperature Temperature Source Pulse Rate 75 59 L Blood Pressure 111/58 L BP Systolic 111 BP Diastolic 58 Pulse Ox 02/18/23 05:45 02/18/23 05:46 02/18/23 05:46 Temperature Temperature Source Pulse Rate 57 L Blood Pressure 103/55 L BP Systolic 103 BP Diastolic 55 Pulse Ox 98 02/18/23 05:51 02/18/23 05:51 02/18/23 05:50 Temperature Temperature Source Pulse Rate 58 L Blood Pressure 106/57 L BP Systolic 106 BP Diastolic 57 Pulse Ox 99 02/18/23 05:55 02/18/23 05:55 02/18/23 06:00 Temperature Temperature Source Pulse Rate 59 L 60 Blood Pressure BP Systolic BP Diastolic Pulse Ox 98 02/18/23 06:00 02/18/23 06:05 02/18/23 06:05 Temperature Temperature Source Pulse Rate 63 Blood Pressure BP Systolic BP Diastolic Pulse Ox 98 97 02/18/23 06:10 02/18/23 06:10 02/18/23 06:15 Temperature Temperature Source Pulse Rate 63 63 Blood Pressure BP Systolic BP Diastolic Pulse Ox 96 02/18/23 06:15 02/18/23 06:20 02/18/23 06:20 Temperature Temperature Source Pulse Rate 61 Blood Pressure BP Systolic BP Diastolic Pulse Ox 97 98 02/18/23 06:23 02/18/23 06:23 02/18/23 08:05 Temperature Temperature Source Pulse Rate 55 L Blood Pressure 110/66 107/57 L BP Systolic 110 107 BP Diastolic 66 57 Pulse Ox 02/18/23 08:05 02/18/23 08:05 02/18/23 08:05 Temperature Temperature Source Temporal Pulse Rate 70 80 Blood Pressure BP Systolic BP Diastolic Pulse Ox 02/18/23 08:05 02/18/23 08:05 02/18/23 08:57 Temperature 98.9 F Temperature Source Temporal Pulse Rate Blood Pressure BP Systolic BP Diastolic Pulse Ox 98 02/18/23 08:57 02/18/23 08:57 02/18/23 08:57 Temperature Temperature Source Pulse Rate 58 L Blood Pressure 105/59 L BP Systolic 105 BP Diastolic 59 Pulse Ox 98 02/18/23 08:57 Temperature 98.3 F Temperature Source Pulse Rate Blood Pressure BP Systolic BP Diastolic Pulse Ox Weight Weight: 65.317 kg Body Mass Index (BMI) 23.2 Physical Exam Const alert and no apparent distress General Appearance: cooperative HEENT normocephalic Resp normal respiratory effort Cardio regular rate GI soft to palpation GI Narrative: gravid, nontender, appropriate for gestational age Extremity no calf tenderness General Extremity: edema Skin no wounds Rashes: No rashes noted Psych activity/motor behavior normal Labs Labs Labs: Blood Type A POSITIVE Antibody Screen NEGATIVE Hct 40.1 % (37-47) Hgb 13.2 g/dL (12.0-15.0) Syphilis Total Ab Non-reactive VZV IgG Antibody 2093 index (Immune >165) Rubella IgG Antibody Reactive (Nonreactive) Hep Bs Antigen Non-Reactive (Nonreactive) Hepatitis C Antibody Non-Reactive (Nonreactive) HIV 1&2 Antibody Non-Reactive (Nonreactive) Glucose 1 Hr 50 gm 118 mg/dL (70-140) Assessment & Plan (1) 38 weeks gestation of : PLAN: 22-year-old 1 para 0 at term in spontaneous labor. Spontaneous rupture membranes. Estimated weight is less than 4000 g clinically and byultrasound and pelvis clinically adequate to expect vaginal delivery. May have routine pain control measures as desired and indicated. Pitocin augmentation ifneeded. Expectant management for vaginal delivery. (2) SROM (spontaneous rupture of membranes): (3) Nulliparity: 02/18/23 1001 <Electronically signed by Didier Dasilva MD> Cosigner Signature (if applicable): CC: Dr. Didier Dasilva MD~ Signed [facility] Work Phone: 1([phone]) 217-997110-09-2023 Miscellaneous Notes* Quick Notes - Tamra Diaz APRN.CNM - 02/12/2023 3:28 PM EDT THOMAS-S: Marimar Mirza is a 22 year old female who presents at 37w6d with BILL:02/27/2023, by Ultrasound for a routine visit. Good FM. Denies headache, visual changes, chest pain, shortness of breath, vaginal bleeding, leakage of fluid, or dysuria. Feeling well, no complaints. O: See flow sheet Gen: No apparent distress Abd: Gravid, nontender S<D ASSESSMENT/PLAN: 1. 37 weeks gestation of 2. with care elsewhere, antepartum P: 1) PTL precautions reviewed and when to call 2) RTO in 1 week 3) Size less than dates, recommend growth US this week. Tamra Diaz APRN.CNM documented in this encounterMer[facility]10-09-2023 Instructions* Patient Instructions* Virgil Uribe Cma - 02/12/2023 3:10 PM EDT SEQUENTIAL SCREENINGS The [facility] offers sequential screenings for women who are interested in screenings for chromosomal abnormalities and certain defects during a . The sequential screen combinesultrasound and blood tests to determine the risk of chromosomal abnormalities, including Down's Syndrome (Trisomy 21) and Trisomy 18, as well as open neural tube defects including spina bifida. Ultrasound examination is performed between 11 weeks and 13 weeks gestational age. Blood tests are drawn after the ultrasound and again later in the between 15 and 21 weeks gestational age. Please let your physician know if you are interested in this testing. It will require an appointment withour facilities operations technician. This is not an ultrasound performed by a physician in our office during a routine visit. SIGNS AND SYMPTOMS OF LABOR 1. Contractions every 10 minutes or more often 2. Clear, pink, or brownish fluid (water) leaking from vagina 3. Feeling that baby is pushing down, pressure 4. Low, dull backache 5. Cramps that feel like a period 6. Cramps with or without diarrhea If you notice any of the above symptoms, contact our office at [phone] and ask to speak with anurse. After hours, you can call doctors registry at [phone] OR call [facility] at [phone] ask to have the doctor honey blender paged. If you consider this an emergency, dial 0-8-7 or go to your nearest emergency department. NEED HELP? Are you dealing with a violent or abusive relationship? Are you a victim of rape or sexual assult? Call [facility] ([place]) 24 hour Crisis Hotline: 264.772.6051 or 436-475-8010. MANUAL Your Guide to a Healthy manual is now on-line. Visit [email or web address] to download your free copy documented in this encounterMercy Health [facility] Center10-09-2023 History of Past illness Narrative* Problem Noted Date Diagnosed Date Resolved Date Uterine size-date discrepanc y, third trimester 02/12/2023 04/02/2023 Benign gestational thrombocy topenia, antepartum 01/25/2023 04/02/2023 Overview: 01/29/23 Plt 122 at 36 wks. SW with care elsewhere, antepartum 01/03/2023 04/02/2023 Overview: 3Patient is transferring care from [place]. She has a growth ultrasound in an OB visit on January 05. She is 32 weeks 1 day . She states she had a history of first trimester bleeding due to a subchorionic hematoma. No issues with bleeding since then. Patient aware to have her records from her January 05 visit with [facility] sent to us. She states that she may schedule I more visit with them prior to her visit here.Lyubov Ramirez RN documented as of this encounter (statuses as of 04/02/2023) [place] [address]-09-2023 History of Past illness Narrative* Problem Noted Date Diagnosed Date Resolved Date Uterine size-date discrepanc y, third trimester 02/12/2023 04/02/2023 Benign gestational thrombocy topenia, antepartum 01/25/2023 04/02/2023 Overview: 01/29/23 Plt 122 at 36 wks. SW with care elsewhere, antepartum 01/03/2023 04/02/2023 Overview: 01/03/2023atient is transferring care from [place]. She has a growth ultrasound in an OB visit on January 05. She is 32 weeks 1 day . She states she had a history of first trimester bleeding due to a subchorionic hematoma. No issues with bleeding since then. Patient aware to have her records from her January 05 visit with [facility] sent to us. She states that she may schedule I more visit with them prior to her visit here.Lyubov Ramirez RN documented as of this encounter (statuses as of 07/25/2023) [facility]10-02-2023 Miscellaneous Notes* Quick Notes - Didier Dasilva MD - 02/05/2023 1:35 PM EDT RR- VB No. LOF No. CTXS No. Movement: present. Other c/o: No. Medication list reviewed. Physical Exam See Flow Sheet Abd: soft, nontender, gravid Ext: edema: Trace, 1+ A/P 36w6d Estimated Date of Delivery: 02/27/23 GBS neg labor precautions f/u in 1 week or prn plan reviewed. interested in flu vaccine recheck plt next week Didier Dasilva M.D. documented in this encounterMercy [facility]10-02-2023 Instructions* Patient Instructions* Ning Maya Ma - 02/05/2023 1:23 PM EDT SEQUENTIAL SCREENINGS The [facility] offers sequential screenings for women who are interested in screenings for chromosomal abnormalities and certain defects during a . The sequential screen combinesultrasound and blood tests to determine the risk of chromosomal abnormalities, including Down's Syndrome (Trisomy 21) and Trisomy 18, as well as open neural tube defects including spina bifida. Ultrasound examination is performed between 11 weeks and 13 weeks gestational age. Blood tests are drawn after the ultrasound and again later in the between 15 and 21 weeks gestational age. Please let your physician know if you are interested in this testing. It will require an appointment withour facilities operations technician. This is not an ultrasound performed by a physician in our office during a routine visit. SIGNS AND SYMPTOMS OF LABOR 1. Contractions every 10 minutes or more often 2. Clear, pink, or brownish fluid (water) leaking from vagina 3. Feeling that baby is pushing down, pressure 4. Low, dull backache 5. Cramps that feel like a period 6. Cramps with or without diarrhea If you notice any of the above symptoms, contact our office at [phone] and ask to speak with anurse. After hours, you can call doctors registry at [phone] OR call [facility] at [phone] ask to have the doctor honey blender paged. If you consider this an emergency, dial 9-1-0 or go to your nearest emergency department. NEED HELP? Are you dealing with a violent or abusive relationship? Are you a victim of rape or sexual assult? Call [facility] ([place]) 24 hour Crisis Hotline: 752.576.2347 or 821-154-3713. MANUAL Your Guide to a Healthy manual is now on-line. Visit [email or web address] to download your free copy documented in this encounterMercy Health [facility] Center09-07-2023 Miscellaneous Notes* Telephone Encounter - Tala Sinclair RN - 01/11/2023 2:39 PM EDT Faxed * Telephone Encounter - Ava Burrell RN - 01/10/2023 2:02 PM EDT [facility] To [facility] to sign. Ava Burrell RN documented in this encounterMercy Health [facility] Center08-29-2023 Miscellaneous Notes* Telephone Encounter - Tala Sinclair RN - 01/02/2023 2:39 PM EDT Received records from [facility]. Placed in PNOB mailbox. Tala Sinclair RN * Telephone Encounter - Jojo Salgado LPN - 01/02/2023 1:04 PM EDT Message left asking pt to call and check on her records from [facility] as we need these for tomorrow's visit. If we do not receive, tomorrow's appointment will need to be canceled until we receive records. Contacted [facility] and message left for them that we need these and requested that they be faxedtoday. Jojo Salgado LPN * Telephone Encounter - Lyubov Ramirez RN - 01/02/2023 12:38 PM EDT Patient has a PNOB appt tomorrow and NOB appointment with Dr Diaz 01/25. We have not received her medical records yet. Please assist patient in getting records sent here for tomorrows visit documented in this encounterMercy Health [facility] Center08-21-2023 Miscellaneous Notes* Telephone Encounter - Tala Sinclair RN - 12/25/2022 11:17 AM EDT Spoke with patient. She will gave a growth US and office visit with Juan Manuel on 01/05/23. PNOB and EST1st OB scheduled. Patient aware that she will need to request her records. Tala Sinclair RN * Telephone Encounter - Tala Robb RN - 12/22/2022 10:45 AM EDT Name and verified. Patient wishes to transfer to [facility] for OB care. BILL? 02/26/2023 What facility is she transferring from? [place] When was her last office visit with the current facility? Today was last appt. Ultrasound set for 2weeks from now Any medical concerns that affect the ? no Which office/provider would the patient like to establish in? [place] Will route this encounter to the desired office. * Telephone Encounter - Mercedes Merchant - 12/22/2022 9:59 AM EDT Patient called in and stated that she would like to [facility] because [facility] is closing, the patient is 30 weeks . I did all of her registration and sent out the medical record release forms. She just needs scheduled and the computer does not allow me to do so. Please review and advise. Thank you! documented in this encounterC[facility] Hospitalaluwilming[facility] hospital noteNo assessment information availableWKettering Health [facility] Work Phone: Evaluation note* Diagnosis with care elsewhere, antepartum- Primary Benign gestational thrombocytopenia, antepartum (HCC) 36 weeks gestation of state, incidental Encounter for supervision of normal first in third trimester Supervision of normal first documented in this encounter [facility] CenterEval[facility] note* Diagnosis 37 weeks gestation of - Primary state, incidental with care elsewhere, antepartum Uterine size-date discrepancy, third trimester documented in this encounter [facility]* Diagnosis Onset Date Resolution Status 38 weeks gestation of acute Nulliparity acute SROM (spontaneous rupture of membranes) acute Vaginal delivery acute [facility] Work Phone: Evaluation note* Diagnosis 37 weeks gestation of state, incidental Uterine size-date discrepancy, third trimester documented in this encounter [facility] Center[facility] note* Diagnosis care and examination- Primary Routine follow-up documented in this encounter [facility] Center[facility]* Diagnosis Encounter for gynecological examination (general) (routine) without abnormal findings- Primary documented in this encounter [facility] CenterEval[facility] note* Diagnosis Bleeding in early - Primary Unspecified hemorrhage in early , unspecified as to episode of care documented in this encounter [facility]* Diagnosis Localized swelling, mass and lump, neck Swelling, mass, or lump in head and neck documented in this encounter [facility] note Author Rubin Aleman [facility] Note Date/Time November 27, 2024 11:3 6am [facility] [address] [place] [address], [address] [place] [address] OFFICE VISIT Date of Service: 11/27/24 MR#: [id number] Acct: [id number] Name: MARIMAR MIRZA Rep #: [id number] : 2000 Provider: JAY JAY Aleman Age/Sex: 24/F Location: [facility] Status: Signed Intake Vital Signs 09/25/24 08:47 10/20/24 15:14 11/27/24 11:21 11/27/24 11:24 Height 5 ft 6 in 5 ft 6 in 5 ft 6 in 5 ft 6 in Weight: 128 lb 4 oz BMI 20.7 BP 104/63 Intake Visit Reasons: 14wks ob Chief Complaint: 14wk OB Utilities Ground Worker Required: No Is patient in pain?: No Allergies No Known Allergies Allergy (Verified 11/27/24 11:20) Medications ?Medication ?Instructions ?Recorded ?Confirmed ?Type acetaminophen 500 mg tablet 1,000 mg (2 x 500 mg) PO Q 6H PRN 02/19/23 11/27/24 Rx PRN Pain 1-10 Or Fever #0 tabs multivit-min no.71-iron fum 28 cap PO 10/10/24 5 History mg-folate no.1 1 mg-dha 300 mg capsule ([facility]-[place]) Last Menstrual Period: 08/14/24 : No PFSH PFSH Surgical History History of mandibular surgery Family History Grandmother Colon cancer, Onset Age: 84 Paternal Social History adopted: No household members: spouse and children housing: house number of children: 2 current occupational status: employed 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 current occupational exposures/hazards: No pets and animals: No history of recent travel: Yes (OR- September) out of state: Yes out of country: No sexually active: Yes Smoking Status: Never smoker alcohol intake: current alcohol intake frequency: holidays/special occasions only details: Not while substance use type: does not use well-balanced diet: daily or most days caffeine: No eating out: 1-3 times/week during the past year weight has: remained stable what type of physical activity do you participate in: walking and running frequency: daily duration: 30-45 minutes/day davide/shinto: Alevism seatbelt use: always do you feel safe at home: Yes 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 Date Name GA/Weeks Outcome Route Bth Weight Gen Labor Lgth Anesthesia Del Locatn Provider FOB 07/19/19 ADOPTED- [facility] 02/18/23 Indie 39 live - full term 7# Female epidu [facility] Dr. Rinku Calderon Delivery Date: 02/18/23 Last Updated by: My Pgaan subchorionic hemorrhage 1st trimester HPI 14wks ob Details: MARIMAR MIRZA is a 24 year old who presents for routine OB visit. OB Visit BILL Calculator Estimated Delivery Date Method Current WG Current Estimate 05/21/25 LMP (Certain) 15w 0d Expected Delivery Route/Plan Labor Preferences- CB/BF classes: [] labor support person: [] labor intervention preferences: [] pain management options preferred: [] cut cord/dad catch: [] : [] PP control planned: [] discussed possible routes of delivery and associated risks: [] special requests: [] Specific Issue/Plans Covid status: [] Flu vaccine: [] Tdap vaccine: [] Rhogam: [] LARC form signed: [] Problem list reviewed and updated with the most current plan of care details and appropriate orders placed. Relevant counseling for the gestational age provided. Continue routine care and follow up unless otherwise noted in visit notes/problem list details Initial Weight: Not Recorded Date -?-?-?-?-?-?-?-?-?-?-?-?- EGA Weight BP Urine Prot -?-?-?-?-?-?-?-?-?-?-?-?- Glucose FHR FuHt Pres Dilation -?-?-?-?-?-?-?-?-?-?-?-?- Effaced St Visit Note 10/20/24 -?-?-?-?-?-?-?-?-?-?-?-?- 9w 4d 125 lb 8 oz 96/54 -?-?-?-?-?-?-?-?-?-?-?-?- 160 -?-?-?-?-?-?-?-?-?-?-?-?- SM- CRL 3 cons c m with LMP 11/27/24 -?-?-?-?-?-?-?-?-?-?-?-?- 15w 0d 128 lb 4 oz 104/63 -?-?-?-?-?-?-?-?-?-?-?-?- 155 -?-?-?-?-?-?-?-?-?-?-?-?- KW- no vb/crampi ng. US ordered. compression hose for varicose veins ACOG First Trimester First Trimester: Desire for , Alcohol, Tobacco Cessation, Illicit/Recreational Drug/Substance Use, Intimate Partner Violence, Barriers to care, Unstable Housing, Communication Barriers, Environmental/Work Hazards, Anticipated Course of Care, Toxoplasmosis Precations, Use of Any medications, Sexual activity, Exercise, Dental Care, Sauna/Hot tub use, Seat Belt use, Childbirth classes/Hospital facilities, Travel, Indications for Ultrasound and Screening for Aneuploidy; Discussed ROS Const Reports system reviewed and no additional complaints, except as documented Eyes Reports system reviewed and no additional complaints, except as documented ENT Reports system reviewed and no additional complaints, except as documented Card Reports system reviewed and no additional complaints, except as documented Resp Reports system reviewed and no additional complaints, except as documented GI Reports system reviewed and no additional complaints, except as documented, Denies nausea and Denies vomiting Reports system reviewed and no additional complaints, except as documented Musc Reports system reviewed and no additional complaints, except as documented Skin/Breast Reports system reviewed and no additional complaints, except as documented Neuro Yes system reviewed and no additional complaints, except as documented Psych Reports system reviewed and no additional complaints, except as documented Endo Reports system reviewed and no additional complaints, except as documented Cristino/Lymph Reports system reviewed and no additional complaints, except as documented Aller/Immun Reports system reviewed and no additional complaints, except as documented Exam Const General: cooperative, healthy appearing and no acute distress Orientation: alert, awake and oriented x3 Neck Neck: normal visual inspection and full ROM Resp Effort & Inspection: normal respiratory effort, able to speak in complete sentences and symmetric chest movement GI Inspection: normal to inspection Palpation: soft and other Other: gravid Skin General: no rashes or lesions noted Neuro General: patient alert, patient awake and patient oriented x3 Cognition: normal cognition Speech: speech normal Gait: normal gait Motor: muscle tone normal throughout Extrem General: normal to inspection and full ROM Psych Appearance: grossly normal Mental Status: mental status grossly normal Mood: congruent mood Affect: normal affect Speech and Movement: speech and movement normal Attitude: cooperative Thought Process: normal Thought Content: normal Judgment: judgment good Coding Level of Care Code OB Routine Diagnoses Supervision of normal Z34.90 15 weeks gestation of Z3A.15 Weeks of gestation: 15 weeks FH: colon cancer Z80.0 Exercise-induced asthma J45.990 Varicose vein of leg I83.90 Assessment and Plan Assessment and Plan (1) Supervision of normal : Status: Acute Comment: , BILL 05/21/25, SAVITA Martin(ADOPTED), Jennifer Fan (2) : Status: Acute Qualifiers: Weeks of gestation: 15 weeks Qualified Code(s): Z3A.15 - 15 weeks gestation of Comment: discussed NIPT & Carrier testing-undecided (3) FH: colon cancer: Status: Acute Comment: 82yo Paternal grandmother- (4) Exercise-induced asthma: Status: Acute (5) Varicose vein of leg: Status: Acute Comment: right leg Orders: Orders POC Urinalysis 2 Dip (Clinic) Today Plan Details Additional Comments: ACOG trimester education reviewed and updated. see problem list details for updated plan management information and see below for orders placed at this visit. GA appropriate handout given. 11/27/24 1136 <Electronically signed by Rubin daugherty CNM> Date _ Rubin Aleman CNM Cosigner Signature: Date (if applicable) CC: ~ [facility] Work Phone: Progress note Author Laurie Cordero [facility] Note Date/Time December 25, 2024 10 :30am [facility] [address], [address] [place] [address] OFFICE VISIT Date of Service: 12/25/24 MR#: [id number] Acct: [id number] Name: MARIMAR MIRZA Rep #: [id number] : 2000 Provider: Dr. Oren Cordero MD Age/Sex: 24/F Location[place] [facility] Status: Signed Intake Vital Signs 10/20/24 15:14 11/27/24 11:24 12/25/24 10:14 12/25/24 10:16 Height 5 ft 6 in 5 ft 6 in 5 ft 6 in 5 ft 6 in Weight: 132 lb 9 oz BMI 21.4 BP 94/54 L Intake Visit Reasons: 18 wk ob Utilities Ground Worker Required: No Is patient in pain?: No Allergies No Known Allergies Allergy (Verified 12/25/24 10:13) Medications ?Medication ?Instructions ?Recorded ?Confirmed ?Type acetaminophen 500 mg tablet 1,000 mg (2 x 500 mg) PO Q 6H PRN 02/19/23 12/25/24 Rx PRN Pain 1-10 Or Fever #0 tabs multivit-min no.71-iron fum 28 cap PO 10/10/24 5 History mg-folate no.1 1 mg-dha 300 mg capsule (PNV-[place]) Last Menstrual Period: 08/14/24 Zika: Zika virus screening: Negative : No PFSH PFSH Surgical History History of mandibular surgery Family History Grandmother Colon cancer, Onset Age: 84 Paternal Social History adopted: No household members: spouse and children housing: house number of children: 2 current occupational status: employed 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 current occupational exposures/hazards: No pets and animals: No history of recent travel: Yes ([place]- September) out of state: Yes out of country: No sexually active: Yes Smoking Status: Never smoker alcohol intake: current alcohol intake frequency: holidays/special occasions only details: Not while substance use type: does not use well-balanced diet: daily or most days caffeine: No eating out: 1-3 times/week during the past year weight has: remained stable what type of physical activity do you participate in: walking and running frequency: daily duration: 30-45 minutes/day davide/shinto: Alevism seatbelt use: always do you feel safe at home: Yes 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 Date Name GA/Weeks Outcome Route Bth Weight Infant Gen Labor Lgth Anesthesia Del Locatn Provider FOB 07/19/19 ADOPTED- [facility] 02/18/23 Indie 39 live - full term 7# Female epidu [facility] Dr. Rinku Calderon Delivery Date: 02/18/23 Last Updated by: My Pagan subchorionic hemorrhage 1st trimester HPI 18 wk ob Details: MARIMAR MIRZA is a 24 year old who presents for routine OB visit. OB Visit BILL Calculator Estimated Delivery Date Method Current WG Current Estimate 05/21/25 LMP (Certain) 19w 0d Expected Delivery Route/Plan Labor Preferences- CB/BF classes: [] labor support person: [] labor intervention preferences: [] pain management options preferred: [] cut cord/dad catch: [] : [] PP control planned: [] discussed possible routes of delivery and associated risks: [] special requests: [] Specific Issue/Plans Covid status: [] Flu vaccine: [] Tdap vaccine: [] Rhogam: [] LARC form signed: [] Problem list reviewed and updated with the most current plan of care details and appropriate orders placed. Relevant counseling for the gestational age provided. Continue routine care and follow up unless otherwise noted in visit notes/problem list details Initial Weight: Not Recorded Date -?-?-?-?-?-?-?-?-?-?-?-?- EGA Weight BP Urine Prot -?-?-?-?-?-?-?-?-?-?-?-?- Glucose FHR FuHt Pres Dilation -?-?-?-?-?-?-?-?-?-?-?-?- Effaced St Visit Note 10/20/24 -?-?-?-?-?-?-?-?-?-?-?-?- 9w 4d 125 lb 8 oz 96/54 -?-?-?-?-?-?-?-?-?-?-?-?- 160 -?-?-?-?-?-?-?-?-?-?-?-?- SM- CRL 3 cons c m with LMP 11/27/24 -?-?-?-?-?-?-?-?-?-?-?-?- 15w 0d 128 lb 4 oz 104/63 -?-?-?-?-?-?-?-?-?-?-?-?- 155 -?-?-?-?-?-?-?-?-?-?-?-?- KW- no vb/crampi ng. US ordered. compression hose for varicose veins 12/25/24 -?-?-?-?-?-?--?-?-?-?-?-?- 19w 0d 132 lb 9 oz 94/54 Nega tive -?-?-?-?-?-?-?-?-?-?-?-?- Negative 150 -?-?-?-?-?-?-?-?-?-?-?-?- SM- no vb lof go od fm no reugar ctx ACOG First Trimester First Trimester: Desire for , Alcohol, Tobacco Cessation, Illicit/Recreational Drug/Substance Use, Intimate Partner Violence, Barriers to care, Unstable Housing, Communication Barriers, Environmental/Work Hazards, Anticipated Course of Care, Toxoplasmosis Precations, Use of Any medications, Sexual activity, Exercise, Dental Care, Sauna/Hot tub use, Seat Belt use, Childbirth classes/Hospital facilities, Travel, Indications for Ultrasound and Screening for Aneuploidy; Discussed Results POC Urinalysis 2 Dip (Clinic) Office Urine Glucose Negative Last Edit by Shanae Edmonds on 12/25/24 10:18 Office Urine Protein Negative Last Edit by Shanae Edmonds on 12/25/24 10:18 Coding Level of Care Code OB Routine Diagnoses Supervision of normal Z34.90 19 weeks gestation of Z3A.19 Weeks of gestation: 19 weeks FH: colon cancer Z80.0 Exercise-induced asthma J45.990 Varicose vein of leg I83.90 Assessment and Plan Assessment and Plan (1) Supervision of normal : Status: Acute Comment: PRR , BILL 05/21/25, PC Veronica(ADOPTED), Indie Fan (2) : Status: Acute Qualifiers: Weeks of gestation: 19 weeks Qualified Code(s): Z3A.19 - 19 weeks gestation of Comment: discussed NIPT & Carrier testing-undecided (3) FH: colon cancer: Status: Acute Comment: 82yo Paternal grandmother- (4) Exercise-induced asthma: Status: Acute (5) Varicose vein of leg: Status: Acute Comment: right leg Orders: Orders POC Urinalysis 2 Dip (Clinic) Today 12/25/24 1030 <Electronically signed by Laurie watt MD> Date _ Laurie Cordero MD Cosigner Signature: Date (if applicable) CC: ~ [facility] Work Phone: Progress note Author Tala Sauer [facility] Note Date/Time January 22, 2025 10:54am [facility] [address], [address] [place] [address] OFFICE VISIT Date of Service: 01/22/25 MR#: [id number] Acct: [id number] Name: MARIMAR MIRZA Rep #: [id number] : 2000 Provider: Dr. Karen Muñoz DO Age/Sex: 24/F Location: [facility] Status: Signed Intake Vital Signs 11/27/24 11:24 12/25/24 10:16 01/22/25 10:38 01/22/25 10:43 Height 5 ft 6 in 5 ft 6 in 5 ft 6 in 5 ft 6 in Weight: 136 lb 6 oz BMI 22.0 BP 99/58 L Intake Visit Reasons: 23wk ob Chief Complaint: 23 Week OB Utilities Ground Worker Required: No Is patient in pain?: No Allergies No Known Allergies Allergy (Verified 01/22/25 10:37) Medications ?Medication ?Instructions ?Recorded ?Confirmed ?Type acetaminophen 500 mg tablet 1,000 mg (2 x 500 mg) PO Q 6H PRN 02/19/23 01/22/25 Rx PRN Pain 1-10 Or Fever #0 tabs multivit-min no.71-iron fum 28 cap PO 10/10/24 5 History mg-folate no.1 1 mg-dha 300 mg capsule (PNV-[place]) Last Menstrual Period: 08/14/24 Zika: Zika virus screening: Negative : No Have you fallen in the past year?: No PFSH PFSH Surgical History History of mandibular surgery Family History Grandmother Colon cancer, Onset Age: 84 Paternal Social History adopted: No household members: spouse and children housing: house number of children: 2 current occupational status: employed 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 current occupational exposures/hazards: No pets and animals: No history of recent travel: Yes ([place]- May) out of state: Yes out of country: No sexually active: Yes Smoking Status: Never smoker alcohol intake: current alcohol intake frequency: holidays/special occasions only details: Not while substance use type: does not use well-balanced diet: daily or most days caffeine: No eating out: 1-3 times/week during the past year weight has: remained stable what type of physical activity do you participate in: walking and running frequency: daily duration: 30-45 minutes/day davide/shinto: Alevism seatbelt use: always do you feel safe at home: Yes 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 Date Name GA/Weeks Outcome Route Bth Weight Infant Gen Labor Lgth Anes thes ia Del Locatn Provider FOB 07/19/19 ADOPTED- [facility] 02/18/23 Indie 39 live - full term 7# Female epidu [facility] Dr. Rinku Calderon Delivery Date: 02/18/23 Last Updated by: My Pagan subchorionic hemorrhage 1st trimester HPI 23wk ob Details: MARIMAR MIRZA is a 24 year old who presents for routine OB visit. OB Visit BILL Calculator Estimated Delivery Date Method Current WG Current Estimate 05/21/25 LMP (Certain) 23w 0d Expected Delivery Route/Plan Labor Preferences- CB/BF classes: [] labor support person: [] labor intervention preferences: [] pain management options preferred: [] cut cord/dad catch: [] : [] PP control planned: [] discussed possible routes of delivery and associated risks: [] special requests: [] Specific Issue/Plans Covid status: [] Flu vaccine: [] Tdap vaccine: [] Rhogam: [] LARC form signed: [] Problem list reviewed and updated with the most current plan of care details and appropriate orders placed. Relevant counseling for the gestational age provided. Continue routine care and follow up unless otherwise noted in visit notes/problem list details Initial Weight: Not Recorded Date -?-?-?-?-?-?-?-?-?-?-?-?- EGA Weight BP Urine Prot -?-?-?-?-?-?-?-?-?-?-?-?- Glucose FHR FuHt Pres Dilation -?-?-?-?-?-?-?-?-?-?-?-?- Effaced St Visit Note 10/20/24 -?-?-?-?-?-?-?-?-?-?-?-?- 9w 4d 125 lb 8 oz 96/54 -?-?-?-?-?-?-?-?-?-?-?-?- 160 -?-?-?-?-?-?-?-?-?-?-?-?- SM- CRL 3 cons c m with LMP 11/27/24 -?-?-?-?-?-?-?-?-?-?-?-?- 15w 0d 128 lb 4 oz 104/63 -?-?-?-?-?-?-?-?-?-?-?-?- 155 -?-?-?-?-?-?-?-?-?-?-?-?- KW- no vb/crampi ng. US ordered. compression hose for varicose veins 12/25/24 -?-?-?-?-?-?-?-?-?-?-?-?- 19w 0d 132 lb 9 oz 94/54 Nega tive -?--?-?-?-?-?-?-?-?-?-?-?- Negative 150 -?-?-?-?-?-?-?-?-?-?-?-?- SM- no vb lof go od fm no reugar ctx 01/22/25 -?-?-?-?-?-?-?-?-?-?-?-?- 23w 0d 136 lb 6 oz 99/58 Nega tive -?-?-?-?-?-?-?-?-?-?-?-?- Negative 135 23 -?-?-?-?-?-?-?-?-?-?-?-?- JV- no lof, vagi nal bleeding, or dec fm. has ultrasound soon to follow up on previa ACOG First Trimester First Trimester: Desire for , Alcohol, Tobacco Cessation, Illicit/Recreational Drug/Substance Use, Intimate Partner Violence, Barriers to care, Unstable Housing, Communication Barriers, Environmental/Work Hazards, Anticipated Course of Care, Toxoplasmosis Precations, Use of Any medications, Sexual activity, Exercise, Dental Care, Sauna/Hot tub use, Seat Belt use, Childbirth classes/Hospital facilities, Travel, Indications for Ultrasound and Screening for Aneuploidy; Discussed Results POC Urinalysis 2 Dip (Clinic) Office Urine Glucose Negative Last Edit by Lisa Rios on 01/22/25 10 :44 Office Urine Protein Negative Last Edit by Lisa Rios on 01/22/25 10 :44 Coding Level of Care Code OB Routine Diagnoses 23 weeks gestation of Z3A.23 Weeks of gestation: 23 weeks Supervision of normal Z34.90 Placenta previa O44.00 FH: colon cancer Z80.0 Exercise-induced asthma J45.990 Varicose vein of leg I83.90 Assessment and Plan Assessment and Plan (1) : Status: Acute Qualifiers: Weeks of gestation: 23 weeks Qualified Code(s): Z3A.23 - 23 weeks gestation of Comment: discussed NIPT & Carrier testing-undecided (2) Supervision of normal : Status: Acute Comment: PRR , BILL 05/21/25, PC Veronica(ADOPTED), Indie Fan (3) Placenta previa: Status: Acute Comment: partial. pelvic rest. US 28 wk (4) FH: colon cancer: Status: Acute Comment: 82yo Paternal grandmother- (5) Exercise-induced asthma: Status: Acute (6) Varicose vein of leg: Status: Acute Comment: right leg Orders: Orders POC Urinalysis 2 Dip (Clinic) Today Clinical Quality Measures Falls Risk Screening/Assistive Devices Have you fallen in the past year?: No 01/22/25 1055 <Electronically signed by Tala Conte DO> Date _ Tala Muñoz DO Duenasignluciano Signature: Date (if applicable) CC: ~ [facility] Work Phone: Progress note Author Shanae Figueroa [facility] Note Date/Time February 16, 2025 8 :59am [facility] [address], [address] [place] [address] OFFICE VISIT Date of Service: 02/16/25 MR#: [id number] Acct: [id number] Name: MARIMAR MIRZA Rep #: [id number] : 2000 Provider: COSME Figueroa Age/Sex: 24/F [place] [facility] Status: Signed Intake Vital Signs 12/25/24 10:16 01/22/25 10:43 02/16/25 08:45 Height 5 ft 6 in 5 ft 6 in 5 ft 6 in Weight: 137 lb 1 oz BMI 22.1 BP 88/54 L Intake Visit Reasons: 27 WK OB/GLUCOSE Utilities Ground Worker Required: No Is patient in pain?: No Allergies No Known Allergies Allergy (Verified 02/16/25 08:42) Medications ?Medication ?Instructions ?Recorded ?Confirmed ?Type acetaminophen 500 mg tablet 1,000 mg (2 x 500 mg) PO Q 6H PRN 02/19/23 02/16/25 Rx PRN Pain 1-10 Or Fever #0 tabs multivit-min no.71-iron fum 28 cap PO 10/10/24 5 History mg-folate no.1 1 mg-dha 300 mg capsule (PNV-[place]) Last Menstrual Period: 08/14/24 Zika: Zika virus screening: Negative : Yes PFSH PFSH Surgical History History of mandibular surgery Family History Grandmother Colon cancer, Onset Age: 84 Paternal Social History adopted: No household members: spouse and children housing: house number of children: 2 current occupational status: employed 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 current occupational exposures/hazards: No pets and animals: No history of recent travel: Yes ([place]- May) out of state: Yes out of country: No sexually active: Yes Smoking Status: Never smoker alcohol intake: current alcohol intake frequency: holidays/special occasions only details: Not while substance use type: does not use well-balanced diet: daily or most days caffeine: No eating out: 1-3 times/week during the past year weight has: remained stable what type of physical activity do you participate in: walking and running frequency: daily duration: 30-45 minutes/day davide/shinto: Alevism seatbelt use: always do you feel safe at home: Yes 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 Date Name GA/Weeks Outcome Route Bth Weight Infant Gen Labor Lgth Anesthesia Del Locatn Provider FOB 07/19/19 ADOPTED- [facility] 02/18/23 Indie 39 live - full term 7# Female epidu [facility] Dr. Rinku Calderon Delivery Date: 02/18/23 Last Updated by: My Pagan subchorionic hemorrhage 1st trimester HPI 27 WK OB/GLUCOSE Details: MARIMAR MIRZA is a 24 year old who presents for routine OB visit. OB Visit BILL Calculator Estimated Delivery Date Method Current WG Current Estimate 05/21/25 LMP (Certain) 26w 4d Expected Delivery Route/Plan Labor Preferences- CB/BF classes: no labor support person: Fan labor intervention preferences: [] pain management options preferred: epidural cut cord/dad catch: no : yes PP control planned: discussed discussed possible routes of delivery and associated risks: [] special requests: [] Specific Issue/Plans Covid status: [] Flu vaccine: declines Tdap vaccine: [] Rhogam: NA LARC form signed: yes Problem list reviewed and updated with the most current plan of care details and appropriate orders placed. Relevant counseling for the gestational age provided. Continue routine care and follow up unless otherwise noted in visit notes/problem list details Initial Weight: Not Recorded Date -?-?-?-?-?-?-?-?-?-?-?-?- EGA Weight BP Urine Prot -?-?-?-?-?-?-?-?-?-?-?-?- Glucose FHR FuHt Pres Dilation -?-?-?-?-?-?-?-?-?-?-?-?- Effaced St Visit Note 10/20/24 -?-?-?-?-?-?-?-?-?-?-?-?- 9w 4d 125 lb 8 oz 96/54 -?-?-?-?-?-?-?-?-?-?-?-?- 160 -?-?-?-?-?-?-?-?-?-?-?-?- SM- CRL 3 cons c m with LMP 11/27/24 -?-?-?-?-?-?-?-?-?-?-?-?- 15w 0d 128 lb 4 oz 104/63 -?-?-?-?-?-?-?-?-?-?-?-?- 155 -?-?-?-?-?-?-?-?-?-?-?-?- KW- no vb/crampi ng. US ordered. compression hose for varicose veins 12/25/24 -?-?-?-?-?-?-?--?-?-?-?-?- 19w 0d 132 lb 9 oz 94/54 Nega tive -?-?-?-?-?-?-?-?-?-?-?-?- Negative 150 -?-?-?-?-?-?-?-?-?-?-?-?- SM- no vb lof go od fm no reugar ctx 01/22/25 -?-?-?-?-?-?-?-?-?-?-?-?- 23w 0d 136 lb 6 oz 99/58 Nega tive -?-?-?-?-?-?-?-?-?-?-?-?- Negative 135 23 -?-?-?-?-?-?-?-?-?-?-?--?- JV- no lof, vagi nal bleeding, or dec fm. has ultrasound soon to follow up on previa 02/16/25 -?-?-?-?-?-?-?-?-?-?-?-?- 26w 4d 137 lb 1 oz 88/54 Nega tive -?-?-?-?-?-?-?-?-?-?-?-?- Negative 148 25 -?-?-?-?-?-?-?-?-?-?-?-?- MH-No Vb, LOF. G ood Fm. Larc. 28 wk labs pending. Declines flu vaccine ACOG First Trimester First Trimester: Desire for , Alcohol, Tobacco Cessation, Illicit/Recreational Drug/Substance Use, Intimate Partner Violence, Barriers to care, Unstable Housing, Communication Barriers, Environmental/Work Hazards, Anticipated Course of Care, Toxoplasmosis Precations, Use of Any medications, Sexual activity, Exercise, Dental Care, Sauna/Hot tub use, Seat Belt use, Childbirth classes/Hospital facilities, , Travel, Indications for Ultrasound and Screening for Aneuploidy Second Trimester Second Trimester: Signs and Symptoms of Labor, Depression/Anxiety and Intimate Partner Violence Third Trimester Third Trimester: Pain Management Plans, Labor support person(s), Immediate Larc, Circumcision preference Yes Yes, Signs and Symptoms of Preeclampsia, Feeding Yes and Family Medical Leave or Disability Forms ROS Const Reports system reviewed and no additional complaints, except as documented GI Denies abdominal pain, Denies nausea and Denies vomiting Exam Const General: cooperative Nutritional Appearance: well nourished GI Palpation: soft, nontender and other (gravid) Results POC Urinalysis 2 Dip (Clinic) Office Urine Glucose Negative Last Edit by Lisa Rios on 02/16/25 08 :48 Office Urine Protein Negative Last Edit by Lisa Rios on 02/16/25 08 :48 Coding Level of Care Code OB Routine Diagnoses Encounter for supervision of other normal in second trimester Z34.82 Normal : other normal Trimester: second trimester 26 weeks gestation of Z3A.26 Weeks of gestation: 26 weeks Placenta previa in second trimester O44.02 Trimester: second trimester Exercise-induced asthma J45.990 Asymptomatic varicose veins of right lower extremity I83.91 Laterality: right Varicose vein complication: asymptomatic Assessment and Plan Assessment and Plan (1) Supervision of normal : Status: Acute Qualifiers: Normal : other normal Trimester: second trimester Qualified Code(s): Z34.82 - Encounter for supervision of other normal , second trimester Comment: PRR , BILL 05/21/25, PC Veronica(ADOPTED), Indtobi Fan (2) : Status: Acute Qualifiers: Weeks of gestation: 26 weeks Qualified Code(s): Z3A.26 - 26 weeks gestation of Comment: discussed NIPT & Carrier testing-undecided (3) Placenta previa: Status: Acute Qualifiers: Trimester: second trimester Qualified Code(s): O44.02 - Complete placenta previa NOS or without hemorrhage, second trimester Comment: partial. pelvic rest. US 28 wk (4) Exercise-induced asthma: Status: Acute (5) Varicose vein of leg: Status: Acute Qualifiers: Laterality: right Varicose vein complication: asymptomatic Qualified Code(s): I83.91 - Asymptomatic varicose veins of right lower extremity Comment: right leg Orders: Orders POC Urinalysis 2 Dip (Clinic) Today Plan problem list reviewed and updated for most current plan of care and appropriate orders placed. Relevant counseling for the gestational age appropriate provided and ACOG education checklist updated. Continue routine care and follow up. 02/16/25 0909 <Electronically signed by Shanae daugherty NP [employer]> Date _ Shanae Figueroa NP [employer]CRE[employer] Cosigner Signature: Date (if applicable) CC: ~ [facility] [employer] [facility] Work Phone: Reason for referral (narrative)* Diagnostic Procedure Only (Routine) - Authorized Specialty Diagnoses / Procedures Referred By Js castellon Referred To Contact [facility] Diagnoses 37 weeks gestation of Uterine size-date discrepancy, third trimester Procedures OBSTETRIC ULTRASOUND WHI US PREG UTERUS AFTER 1ST TRIMEST GESTATION Tamra Diaz APRN.CNM [address] [place] [address] [address] Referral ID Status Reason Start Date Expiration Date Visits Requested Visits Authorized [id number] Authorized Auto-Generat ed Referral 02/12/2023 02/12/2024 5 1 [facility]No reason for referral information [facility] Work Phone: Reason for visit Narrative* Diagnostic Procedure Only (Routine) - Closed Specialty Diagnoses / Procedures Referred By Js castellon Referred To Contact [facility] Diagnoses 37 weeks gestation of Uterine size-date discrepancy, third trimester Procedures OBSTETRIC ULTRASOUND WHI US PREG UTERUS AFTER 1ST TRIMEST GESTATION Tamra Diaz APRN.CNM [address] [place] [address] [facility] [address] [place] [id number] Referral ID Status Reason Start Date Expiration Date V isits Requested Visits Authorized [id number] Closed Auto-Generate d Referral 02/12/2023 02/12/2024 5 1 [facility] Chief Complaint and Reason for Visit Chief Complaint VAG DELIVERY Reason for Visit 38 weeks gestation o f Nulliparity SROM (spontaneous rupture of membranes) Vaginal delivery Chief Complaint Admit Date Establish care, Confirm September 252024 8:31am *NEW* NOB LMP 08/14, BILL 05/21October 20, 2024 3:10pm Reason for Visit Admit Date Vaginal delivery September 25, 2024 8:31a m Exercise-induced asthma October 20, 2024 3:10pm FH: colon cancer October 20, 2024 3:10 pm October 20, 2024 3:10 pm Supervision of normal October 3:10pm Varicose vein of leg October 20, 2024 3:1 0pm Chief Complaint Admit Date Establish care, Confirm September 252024 8:31am *NEW* NOB LMP 4/10, BILL 05/21October 20, 2024 3:10pm 14wks ob November 27, 2024 11:1 9am Reason for Visit Admit Date Vaginal delivery September 25, 2024 8:31a m Exercise-induced asthma October 20, 2024 3:10pm FH: colon cancer October 20, 2024 3:10 pm October 20, 2024 3:10 pm Supervision of normal October 3:10pm Varicose vein of leg October 20, 2024 3:1 0pm Exercise-induced asthma November 27, 2024 11:19am FH: colon cancer November 27, 2024 11:1 9am November 27, 2024 11:1 9am Supervision of normal November 11:19am Varicose vein of leg November 27, 2024 11: 19am Chief Complaint Admit Date Establish care, Confirm September 252024 8:31am *NEW* NOB LMP 4/10, BILL 05/21October 20, 2024 3:10pm 14wks ob November 27, 2024 11:1 9am 19 wk ob December 25, 2024 10 :10am Reason for Visit Admit Date Vaginal delivery September 25, 2024 8:31a m Exercise-induced asthma October 20, 2024 3:10pm FH: colon cancer October 20, 2024 3:10 pm October 20, 2024 3:10 pm Supervision of normal October 3:10pm Varicose vein of leg October 20, 2024 3:1 0pm Exercise-induced asthma November 27, 2024 11:19am FH: colon cancer November 27, 2024 11:1 9am November 27, 2024 11:1 9am Supervision of normal November 11:19am Varicose vein of leg November 27, 2024 11: 19am Exercise-induced asthma December 25 10:10am FH: colon cancer December 25, 2024 10 :10am December 25, 2024 10 :10am Supervision of normal December 062024 10:10am Varicose vein of leg December 25, 2024 1 0:10am Chief Complaint Admit Date *NEW* NOB LMP 08/14, BILL 05/21October 20, 2024 3:10pm 14wks ob November 27, 2024 11:1 9am 19 wk ob December 25, 2024 10 :10am 23wk ob January 22, 2025 10:36am Reason for Visit Admit Date Exercise-induced asthma October 20, 2024 3:10pm FH: colon cancer October 20, 2024 3:10 pm October 20, 2024 3:10 pm Supervision of normal October 3:10pm Varicose vein of leg October 20, 2024 3:1 0pm Exercise-induced asthma November 27, 2024 11:19am FH: colon cancer November 27, 2024 11:1 9am November 27, 2024 11:1 9am Supervision of normal November 11:19am Varicose vein of leg November 27, 2024 11: 19am Exercise-induced asthma December 25 10:10am FH: colon cancer December 25, 2024 10 :10am December 25, 2024 10 :10am Supervision of normal December 062024 10:10am Varicose vein of leg December 25, 2024 1 0:10am Exercise-induced asthma January 22, 2025 10:36am FH: colon cancer January 22, 2025 10:36am Placenta previa January 22, 2025 10:36am January 22, 2025 10:36am Supervision of normal Septembe 2024 10:36am Varicose vein of leg January 22 10:36am Chief Complaint Admit Date 14wks ob November 27, 2024 11:1 9am 19 wk ob December 25, 2024 10 :10am 23wk ob January 22, 2025 10:36am 27 WK OB/GLUCOSE February 16, 2025 8 :27am placenta location follow up February 12:06pm Reason for Visit Admit Date Exercise-induced asthma November 27, 2024 11:19am FH: colon cancer November 27, 2024 11:1 9am November 27, 2024 11:1 9am Supervision of normal November 11:19am Varicose vein of leg November 27, 2024 11: 19am Exercise-induced asthma December 25 10:10am FH: colon cancer December 25, 2024 10 :10am December 25, 2024 10 :10am Supervision of normal December 062024 10:10am Varicose vein of leg December 25, 2024 1 0:10am Exercise-induced asthma January 22, 2025 10:36am FH: colon cancer January 22, 2025 10:36am January 22, 2025 10:36am Supervision of normal Septembe 2024 10:36am Varicose vein of leg January 22 10:36am Placenta previa January 22, 2025 10:36am Exercise-induced asthma February 16 8:27am February 16, 2025 8 :27am Supervision of normal February 16, 2025 8:27am Varicose vein of leg February 16, 2025 8:27am Placenta previa February 16, 2025 8 :27am Advance Directives No Advanced Directives Records Found Advance Directive Response Recorded Date/ Time Living Will Yes February 18 4:18am Power of Flight Surveyor No February 18, 2023 4:18am Summary Purpose Family History No Family History Records Found Relationship Condition Age at Onset Recorded Date/T destiny grandmother Malignant neoplasm of colon 82 Additional Source Comments Goals (unrecognized section and content) Type Care Experience Labor Preferences-CB /BF classes: []labor support person: []labor intervention preferences: []pain management options preferred: []cut cord/dad catch: []: []PP control planned: []discussed possible routes of delivery and associated risks: []special requests: [] Type Detail Care Experience Labor Preferences-CB /BF classes: nolabor support person: Toddlabor intervention preferences: []pain management options preferred: epiduralcut cord/dad catch: nobreastfeeding: yesPP control planned: discusseddiscussed possible routes of delivery and associated risks: []special requests: [] Care Teams (unrecognized sec tion and content) Team Status: Inactive Member Role Status Dates Dr. Melvin Rios MD Attending Provider Active Team Status: Inactive Member Role Status Dates Dr. Manuela Rios DO Attending Provider Active Team Status: Inactive Member Role Status Dates Dr. Dideir Dasilva MD Attending Provider, Referring Provider Active Dr. Laurie Cordero MD Admit Provider Active Team Status: Inactive Member Role Status Dates Dr. Laurie Cordero MD Attending Provider Active Start: September 25, 2024 End: September 25, 2024 Team Status: Inactive Member Role Status Dates Dr. Laurie Cordero MD Attending Provider Active Start: October 20, 2024 End: October 20, 2024 Team Status: Active Member Role Status Dates Dr. Laurie Cordero MD Attending Provider Active Start: October 20, 2024 Dr. Laurie Cordero MD Referring Provider Active Start: October 20, 2024 Team Status: Inactive Member Role Status Dates Dr. Laurie oCrdero MD Attending Provider Active Start: October 20, 2024 End: October 20, 2024 Dr. Laurie Cordero MD Referring Provider Active Start: October 20, 2024 End: October 20, 2024 Team Status: Inactive Member Role/Relationship Status Dates Dr. Laurie Cordero MD Attending Provider Active Start: September 25, 2024 End: September 25, 2024 Team Status: Inactive Member Role/Relationship Status Dates Dr. Laurie Cordero MD Attending Provider Active Start: October 20, 2024 End: October 20, 2024 Team Status: Inactive Member Role/Relationship Status Dates Dr. Laurie Cordero MD Attending Provider Active Start: October 20, 2024 End: October 20, 2024 Dr. Laurie Cordero MD Referring Provider Active Start: October 20, 2024 End: October 20, 2024 Team Status: Inactive Member Role/Relationship Status Dates Rubin Aleman CNM Attending Provider Active S tart: November 27, 2024 End: November 27, 2024 Team Status: Inactive Member Role/Relationship Status Dates Dr. Laurie Cordero MD Attending Provider Active Start: December 25, 2024 End: December 25, 2024 Team Status: Inactive Member Role/Relationship Status Dates Dr. Laurie Cordero MD Attending physician Active Start: October 20, 2024 End: October 20, 2024 Team Status: Inactive Member Role/Relationship Status Dates Dr. Laurie Cordero MD Attending physician Active Start: October 20, 2024 End: October 20, 2024 Dr. Laurie Cordero MD Referring Provider Active Start: October 20, 2024 End: October 20, 2024 Team Status: Inactive Member Role/Relationship Status Dates Rubin Aleman CNM Attending physician Active Start: November 27, 2024 End: November 27, 2024 Team Status: Inactive Member Role/Relationship Status Dates Dr. Laurie Cordero MD Attending physician Active Start: December 25, 2024 End: December 25, 2024 Team Status: Inactive Member Role/Relationship Status Dates Dr. Tala Muñoz DO Attending physician Acti ve Start: January 22, 2025 End: January 22, 2025 Team Status: Active Member Role/Relationship Status Dates No Primary Care Physician Primary care physician Activ e Team Status: Inactive Member Role/Relationship Status Dates Rubin Aleman CNM Attending physician Active Start: November 27, 2024 End: November 27, 2024 Team Status: Inactive Member Role/Relationship Status Dates Dr. Laurie Cordero MD Attending physician Active Start: December 25, 2024 End: December 25, 2024 Team Status: Inactive Member Role/Relationship Status Dates Dr. Tala Muñoz DO Attending physician Acti ve Start: January 22, 2025 End: January 22, 2025 Team Status: Inactive Member Role/Relationship Status Dates Shanae Figueroa NP, [employer]CRE[employer] Attending physician Active Start: February 16, 2025 End: February 16, 2025 Team Status: Inactive Member Role/Relationship Status Dates Dr. Tala Muñoz DO Attending physician Acti ve Start: February 16, 2025 End: February 16, 2025 Team Status: Active Member Role/Relationship Status Dates Rubin Aleman CNM Attending physician Active Start: February 26, 2025 Rubin Aleman CNM Referring Provider Active S tart: February 26, 2025 No Primary Care Physician Primary care physician Activ e Start: February 26, 2025 Debt Collection Specialist Relationship Specialty Start Date End Date Riaz Rios APRN - MIS[facility] [address] [place] [address] PCP - General Nurse Practitioner 03/06/25 Source Comments (unrecognize d section and content) In the event this informatio n is protected by the Federal Confidentiality of Alcohol and Drug Abuse Patient Records regulations: The Federal rules restrict any use of the information to criminally investigate or prosecute any alcohol or drug abuse patient.[facility] the event this information is protected by the Federal Confidentiality of Alcohol and Drug Abuse Patient Records regulations: The Federal rules restrict any use of the information to criminally investigate or prosecute any alcohol or drug abuse patient.[facility] CenterIn the event this information is protected by the Federal Confidentiality of Alcohol and Drug Abuse Patient Records regulations: The Federal rules restrict any use of the information to criminally investigate or prosecute any alcohol or drug abuse patient.[facility] CenterIn the event this information is protected by the Federal Confidentiality of Alcohol and Drug Abuse Patient Records regulations: The Federal rules restrict any use of the information to criminally investigate or prosecute any alcohol or drug abuse patient.[facility] CenterIn the event this information is protected by the Federal Confidentiality of Alcohol and Drug Abuse Patient Records regulations: The Federal rules restrict any use of the information to criminally investigate or prosecute any alcohol or drug abuse patient.[facility] CenterIn the event this information is protected by the Federal Confidentiality of Alcohol and Drug Abuse Patient Records regulations: The Federal rules restrict any use of the information to criminally investigate or prosecute any alcohol or drug abuse patient.[facility] CenterIn the event this information is protected by the Federal Confidentiality of Alcohol and Drug Abuse Patient Records regulations: The Federal rules restrict any use of the information to criminally investigate or prosecute any alcohol or drug abuse patient.[facility] CenterIn the event this information is protected by the Federal Confidentiality of Alcohol and Drug Abuse Patient Records regulations: The Federal rules restrict any use of the information to criminally investigate or prosecute any alcohol or drug abuse patient.[facility] CenterIn the event this information is protected by the Federal Confidentiality of Alcohol and Drug Abuse Patient Records regulations: The Federal rules restrict any use of the information to criminally investigate or prosecute any alcohol or drug abuse patient.[facility] CenterIn the event this information is protected by the Federal Confidentiality of Alcohol and Drug Abuse Patient Records regulations: The Federal rules restrict any use of the information to criminally investigate or prosecute any alcohol or drug abuse patient.[facility] CenterIn the event this information is protected by the Federal Confidentiality of Alcohol and Drug Abuse Patient Records regulations: The Federal rules restrict any use of the information to criminally investigate or prosecute any alcohol or drug abuse patient.[facility] CenterIn the event this information is protected by the Federal Confidentiality of Alcohol and Drug Abuse Patient Records regulations: The Federal rules restrict any use of the information to criminally investigate or prosecute any alcohol or drug abuse patient.[facility] CenterIn the event this information is protected by the Federal Confidentiality of Alcohol and Drug Abuse Patient Records regulations: The Federal rules restrict any use of the information to criminally investigate or prosecute any alcohol or drug abuse patient.[facility] Reason for Visit (unrecogniz ed section and content) 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 Initial OB KATIANA jacobs Reason Comments Request Outside Medical Records Reason Comments Breast Pump Reason Onset Date Comments Care 02/05/2023 Reason Onset Date Comments Care 02/12/2023 Reason Comments Ob Delivery Note Reason Comments Routine Reason Comments Refill Request Reason Comments Appointment Reason Comments Yearly Exam Reason Comments Early OB Bleeding INFORMATION SOURCE (unrecogn ized section and content) DATE CREATED AUTHOR 05/28/2024 [facility] DATE CREATED AUTHOR AUTHOR'S ORGANIZ ATION 12/30/2024 [facility] DATE CREATED AUTHOR AUTHOR'S ORGANIZ ATION 03/10/2025 [facility] DATE CREATED AUTHOR AUTHOR'S ORGANIZ ATION 03/14/2025 [facility] FOR RECORDS PERTAINING TO PATIENTS WHO ARE OR HAVE BEEN ENROLLED IN A CHEMICAL DEPENDENCY/SUBSTANCEABUSE PROGRAM, SOME INFORMATION MAY BE OMITTED. This clinical summary was aggregated from multiple sources. Caution should be exercised in using it in the provision of clinical care. This summary normalizes information from multiple sources, and as a consequence, information in this document may materially change the coding, format and clinical context of patient data. In addition, data may be omitted in some cases. CLINICAL DECISIONS SHOULD BE BASED ON THE PRIMARY CLINICAL RECORDS. [facility]. provides no warranty or guarantee of the accuracy or completeness of information in this document.
== END | disposition home or self-care (01) ==
PROVIDERS: Referring Provider Nurse Practitioner Women's Health; Visit Provider Nurse Practitioner Women's Health
DX: O26.849 Uterine size-date discrepancy, unspecified trimester (principal); Z3A.00 Weeks of gestation of pregnancy not specified
CPT/HCPCS: 76816

== ENCOUNTER → 2025-05-01 | Outpatient (CLI) | payer BC, SELFPAY ==
--- OUTSIDE RECORDS SUMMARY | 2025-05-01 13:36 | XMS RPT_ITS | CCD ---
Author Organization [facility] CliniSywy Care Team Providers Care Ancillary Services Manager Name Role Phone Unavailable Primary Care Provider UnavailDIDIER Pickering Attending Unavailable YEE DIAZ Referring Unavailable Consuelo SPANN, Dr. Sullivan Attending Provider [phone] Dr. Laurie Cordero MD Referring Provider Rubin [...] Primary Primary Care Physicia n Unavailable Seferino SMOCKER - MACHINE TAILER, Riaz Primary Care Provider RIAZ RIOS Attending [...] on above: Inhale as instructed . Mv-Mins 53-Zkcc-Pqpgn No.1-D parrish (Pnv-Escanaba) 28-1-300 mg capsule (6 sources) Start: 10-10-2024 Start: 10-10-2024 Mv-Mins 71-Iro n-Folic No.1-Dha (Pnv-Escanaba) 28-1-300 mg capsule Active NMA PO October 10, 2024 12:00am Complies with drug therapy Start: 10-10-2024 Mv-Mins 71-Iro n-Folic No.1-Dha (Pnv-Escanaba) 28-1-300 mg capsule Active NMA PO October 10, 2024 12:00am VIT 01-ZOIN-QJUEN-D APRRISH ORAL (11 sources) VIT 32- UPIS-JPQDH-KFA ORAL Take by mouth. Active VIT 32- OSBJ-KHATY-WOR ORAL Take by mouth. 0 Active Comment [...] Test Name Value Interpretation Reference Range Facility Staff Home Therapy Rn Office Visit Reporton 03-12-2025 Staff Home Therapy Rn Office Visit Report [facility]'s [address], [address] [place] [address] OFFICE VISIT Date of Service: 03/12/25 MR#: [id number] Acct: [id number] Name: MARIMAR MIRZA Rep #: [id number] : 2000 Provider: Dr. Tala Baker DO Age/Sex: 24/F [place] [facility] [place]: Signed Intake Vital Signs 12/25/24 10:16 02/16/25 08:45 03/12/25 10:02 Height 5 ft 6 in 5 ft 6 in 5 ft 6 in Weight: 137 lb 1 oz 140 lb 7 oz BMI 22.1 22.6 BP 88/54 L 127/72 H Intake Visit Reasons: 30 WK OB Chief Complaint: 30wk OB Melt Room Operator Required: No Is patient in pain?: No Allergies No Known Allergies Allergy (Verified 03/12/25 10:00) Medications ???Medication ???Instructions ???Recorded ???Confirmed ???Type acetaminophen 500 mg tablet 1,000 mg (2 x 500 mg) PO Q6H PRN 1 03/12/25 Rx PRN Pain 1-10 Or Fever #0 tabs multivit-min no.71-iron fum 28 cap PO 10/10/24 03/12/25 History mg-folate no.1 1 mg-dha 300 mg capsule (PNV-Escanaba) Last Menstrual Period: 08/14/24 Have you fallen [...] and running frequency: daily duration: 30-45 minutes/day davide/church: Bahai seatbelt use: always do you feel safe at home: Yes 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 Date Name GA/Weeks Outcome Route Bth Weight Infant Gen Labor Lgth Anesthesia Del Locatn Provider FOB 07/19/19 ADOPTED- [facility] 02/18/23 Indie 39 live - full term 7# Female epidural [facility] Dr. Rinku Calderon Delivery Date: 02/18/23 [...] -???-???-???-???-??? -???-???-??? (more content not included)... Normal [facility] HEAD NECK SOFT TISSUEon 1 05-09-2024 US [...] Electronically Signed Date/Time: 03/09/2025 3:18 PM EST [facility] US Head and neck soft tissue on 03-09-2025 Solid lesion underlying the patient's area of palpable concern within the right posterior neck, likely represents a lipoma. No further follow-up recommended. Report Dictated on Electronically Signed By: Ralf Albert MD Electronically Signed Date/Time: 03/09/2025 3:18 PM [facility] [employer] [facility] 2000 [id number] Exam Date/Time: 03/09/2025 08:20 Procedure: US HEAD [...] No suspicious lymph nodes. No fluid collection. [facility] Ralf Albert MD - 03/09/2025 Patient Name: [...] Electronically Signed Date/Time: 03/09/2025 3:18 PM EST [facility] Radiology Study observation (narrative) [facility] US Head and neck soft tissue Ordered By: Ralf Albert on 03-09-2025 [facility] Work Phone: OB Limited (No Biometrics)on 02-26-2025 OB Limited (No Biometrics) [facility] Imaging Services [address] [place] [address] [id number] OB Limited (No Biometrics) MR#: [id number] Acct: [id number] Name: MARIMAR MIRZA Rep #: [id number] : 2000 F 24 From: Virgil saab MD PCP: Care Physician,No Primary Status: REG CLI Study: OB Limited (No Biometrics) Date of Exam: 02/26 Exam# [id number] Ordering Dr: Rubin Aleman CNM PROCEDURE: OB [...] IMPRESSION: Posterior placenta. Not low-lying. Reading Location: [place] [address] CC: JAY JAY Aleman; No Primary Care Physician Clinical Therapist: Signed Normal [facility] Absolute lymphocyte countOrd ered By: Tala Sauer on 02-16-2025 Lymphocytes Auto (Unsp spec) [#/Vol] 1.05 10*3/uL 0.83-4.51 [facility] Absolute neutrophil countOrd ered By: Tala Sauer on 02-16-2025 Neutrophils (Bld) [#/Vol] 5.0 10*3/uL 2.0-7.7 [facility] Automated lymphocyte count a s percentage of total leukocytesOrdered By: Tala Sauer on 02-16-2025 Lymphocytes/100 WBC Auto (Unsp spec) 15.9 % Low 19-41 [facility] Basophil percentageOrdered B y: Tala Sauer on 02-16-2025 Basophils/100 WBC (Bld) 0.8 % 0-[address] [facility] CBC W/Diff, Automatedon 02-04 Absolute Lymph 1.05 X10 3/uL Normal 0.83-4.51 [facility] Comment on above: Performed By: #### L 501.0250, L509.8002, L3890.6006, L100.0100 #### [facility] [address] [place], [address] Absolute Neut 5.0 X10 3/uL Normal 2.0-7.7 [facility] Comment on above: Performed By: #### L 501.0250, L509.8002, L3890.6006, L100.0100 #### [facility] [address] [place], [address] Basophils/100 WBC (Bld) 0.8 % Normal 0-[address] [facility] Comment on above: Performed By: #### L 501.0250, L509.8002, L3890.6006, L100.0100 #### [facility] [address] [place], [address] Eosinophils/100 WBC (Bld) 0.8 % Normal 0-5 [facility] Comment on above: Performed By: #### L 501.0250, L509.8002, L3890.6006, L100.0100 #### [facility] [address] [place], [address] Erythrocyte distribution width (RBC) [Ratio] 13.2 % Normal 11.6-14.6 [facility] Comment on above: Performed By: #### L 501.0250, L509.8002, L3890.6006, L100.0100 #### [facility] [address] [place], [address] Hematocrit (Bld) [Volume fraction] 39.6 % Normal 37-47 [facility] Comment on above: Performed By: #### L 501.0250, L509.8002, L3890.6006, L100.0100 #### [facility] [address] [place], [address] Hemoglobin (Bld) [Mass/Vol] 13.4 g/dL Normal 12.0-15.0 [facility] Comment on above: Performed By: #### L 501.0250, L509.8002, L3890.6006, L100.0100 #### [facility] [address] [place], [address] IG% 1.400 High 0.0-0.9 [facility] Comment on above: Result Comment: IG% - Immature Granulocytes (promyelocytes, myelocytes and metamyelocytes) > 1% indicates that a LEFT SHIFT is Present. Performed By: #### L 501.0250, L509.8002, L3890.6006, L100.0100 #### [facility] [address] [place], [address] Lymphocytes/100 WBC (Bld) 15.9 % Low 19-41 [facility] Comment on above: Performed By: #### L 501.0250, L509.8002, L3890.6006, L100.0100 #### [facility] [address] [place], [address] MCH (RBC) [Entitic mass] 31.8 pg Normal 27.0-32.0 [facility] Comment on above: Performed By: #### L 501.0250, L509.8002, L3890.6006, L100.0100 #### [facility] [address] [place], [address] MCHC (RBC) [Mass/Vol] 33.8 g/dL Normal 32-36 [facility] Comment on above: Performed By: #### L 501.0250, L509.8002, L3890.6006, L100.0100 #### [facility] [address] [place], [address] MCV (RBC) [Entitic vol] 93.8 fL Normal 81-[address] [facility] Comment on above: Performed By: #### L 501.0250, L509.8002, L3890.6006, L100.0100 #### [facility] [address] [place], [address] Monocytes/100 WBC (Bld) 5.3 % Normal 0-[address] [facility] Comment on above: Performed By: #### L 501.0250, L509.8002, L3890.6006, L100.0100 #### [facility] [address] [place], [address] Neutrophils/100 WBC (Bld) 75.8 % High 47-70 [facility] Comment on above: Performed By: #### L 501.0250, L509.8002, L3890.6006, L100.0100 #### [facility] [address] [place], [address] Nucleated RBC (Bld) [#/Vol] 0 10*3/uL Normal 0-5 [facility] Comment on above: Performed By: #### L 501.0250, L509.8002, L3890.6006, L100.0100 #### [facility] [address] [place], [address] Platelet mean volume (Bld) [Entitic vol] 12.1 fL High 6.2-12.0 [facility] Comment on above: Performed By: #### L 501.0250, L509.8002, L3890.6006, L100.0100 #### [facility] [address] [place], [address] Platelets (Bld) [#/Vol] 125 10*3/uL Low 150-450 [facility] Comment on above: Performed By: #### L 501.0250, L509.8002, L3890.6006, L100.0100 #### [facility] [address] [place], [address] RBC (Bld) [#/Vol] 4.22 10*6/uL Normal 4.2-5.4 [facility] Comment on above: Performed By: #### L 501.0250, L509.8002, L3890.6006, L100.0100 #### [facility] [address] [place], [address] RDW SD 45.0 fl High 35.1-43.9 [facility] Comment on above: Performed By: #### L 501.0250, L509.8002, L3890.6006, L100.0100 #### [facility] [address] [place], [address] WBC (Bld) [#/Vol] 6.6 10*3/uL Normal 4.4-11.0 [facility] Comment on above: Performed By: #### L 501.0250, L509.8002, L3890.6006, L100.0100 #### [facility] [address] [place], [address] Eosinophil percentageOrdered By: Tala Sauer on 02-16-2025 Eosinophils/100 WBC (Bld) 0.8 % 0-5 [facility] Erythrocyte distribution wid th ratioOrdered By: Tala Sauer on 02-16-2025 Erythrocyte distribution width (RBC) [Ratio] 13.2 % 11.6-14.6 [facility] Erythrocyte distribution wid th standard deviationOrdered By: Tala Sauer on 02-16-2025 Erythrocyte distribution width (RBC) [Ratio] 45.0 fl High 35.1-43.9 [facility] Glucose Challenge Gest 1H 50 asuncion 02-16-2025 GLU GEST 50g 1H 131 mg/dL Normal 70-140 [facility] Comment on above: Performed By: #### L 501.0250, L509.8002, L3890.6006, L100.0100 #### [facility] [address] [place] [place], [address] Glucose measurement at 2 celso rs post-dose gestational glucose tolerance testOrdered By: Tala Sauer on 02-16-2025 Glucose [Mass/Vol] 131 mg/dL 70-140 [facility] HIVon 02-16-2025 HIV Non-Reactive Normal Nonreactive [facility] Comment on above: Result Comment: Non- Reactive Reactive Repeatedly reactive samples must be confirmed according to CDC recommended confirmatory algorithms. The subresults for either HIVAG or AHIV can be used as an aid in the selection of the confirmation algorithm for reactive samples. Send out specimens with Reactive results to [facility] for confirmation. Order the HIV antibody detection and differentiation: lc#[id number] Performed By: #### L 501.0250, L509.8002, L3890.6006, L100.0100 #### [facility] [address] [place], [address] Hematocrit Auto (Bld) [Volum e fraction]Ordered By: Tala Sauer on 02-16-2025 Hematocrit (Bld) [Volume fraction] 39.6 % 37-47 [facility] Hemoglobin measurementOrdere d By: Tala Sauer on 02-16-2025 Hemoglobin (Bld) [Mass/Vol] 13.4 g/dL 12.0-15.0 [facility] Immature granulocytes/100 WB C Auto (Bld)Ordered By: Tala Sauer on 02-16-2025 Immature granulocytes/100 WBC (Bld) 1.400 % High 0.0-0.9 [facility] Comment on above: IG% - Immature Granu locytes (promyelocytes, myelocytes and metamyelocytes) > 1% indicates that a LEFT SHIFT is Present. Laboratory - Chemistry and C hemistry - challengeOrdered By: Shanae Figueroa on 02-16-2025 Glucose Ql (U) Negative [facility] - UrinalysisOrder ed By: Shanae Figueroa on 02-16-2025 Protein Ql (U) Negative [facility] MCV (mean corpuscular volume ) determinationOrdered By: Tala Sauer on 02-16-2025 MCV (RBC) [Entitic vol] 93.8 fL 81-[address] [facility] Mean corpuscular hemoglobin (MCH) determinationOrdered By: Tala Sauer on 02-16-2025 MCH (RBC) [Entitic mass] 31.8 pg 27.0-32.0 [facility] Mean corpuscular hemoglobin concentration (MCHC) determinationOrdered By: Tala Sauer on 02-16-2025 MCHC (RBC) [Mass/Vol] 33.8 g/dL 32-36 [facility] Mean platelet volume determi nationOrdered By: Tala Sauer on 02-16-2025 Platelet mean volume (Bld) [Entitic vol] 12.1 fL High 6.2-12.0 [facility] Monocyte percentageOrdered B y: Tala Sauer on 02-16-2025 Monocytes/100 WBC (Bld) 5.3 % 0-[address] [facility] Neutrophil percentageOrdered By: Tala Sauer on 02-16-2025 Neutrophils/100 WBC (Bld) 75.8 % High 47-70 [facility] No Panel InformationOrdered By: Tala Sauer on 02-16-2025 HIV (1&2) Antibody Non-Reactive Nonreactive [facility] Comment on above: Non-ReactiveReactive Repeatedly reactive samples must be confirmed according to CDC recommended confirmatory algorithms. The subresults for either HIVAG or AHIV can be used as an aid in the selection of the confirmation algorithm for reactive samples.Send out specimens with Reactive results to [facility] for confirmation.Order the HIV antibody detection and differentiation: #[id number] Nucleated red blood cell per centageOrdered By: Tala Sauer on 02-16-2025 Nucleated RBC/100 WBC (Bld) [Ratio] 0 % 0-5 [facility] Staff Home Therapy Rn Office Visit Reporton 02-16-2025 Staff Home Therapy Rn Office Visit Report [facility] [address], [address] [place] [address] OFFICE VISIT Date of Service: 02/16/25 MR#: [id number] Acct: [id number] Name: MARIMAR MIRZA Rep #: [id number] : 2000 Provider: COSME koch Age/Sex: 24/F [place] [facility] [place] Status: Signed Intake Vital Signs 12/25/24 10:16 01/22/25 10:43 02/16/25 08:45 Height 5 ft 6 in 5 ft 6 in 5 ft 6 in Weight: 137 lb 1 oz BMI 22.1 BP 88/54 L Intake Visit Reasons: 27 WK OB/GLUCOSE Melt Room Operator Required: No Is patient in pain?: No Allergies No Known Allergies Allergy (Verified 02/16/25 08:42) Medications ???Medication ???Instructions ???Recorded ???Confirmed ???Type acetaminophen 500 mg tablet 1,000 mg (2 x 500 mg) PO Q6H PRN 1 02/16/25 Rx PRN Pain 1-10 Or Fever #0 tabs multivit-min no.71-iron fum 28 cap PO 10/10/24 02/16/25 History mg-folate no.1 1 mg-dha 300 mg capsule (PNV-Escanaba) Last Menstrual Period: 08/14/24 Zika: Zika virus [...] and running frequency: daily duration: 30-45 minutes/day davide/church: Bahai seatbelt use: always do you feel safe at home: Yes 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 Date Name GA/Weeks Outcome Route Bth Weight Gen Labor Lgth Anesthesia Del Locatn Provider FOB 07/19/19 ADOPTED- [facility] 02/18/23 Indie 39 live - full term 7# Female epidural [facility] Dr. Rinku Calderon Delivery Date: 02/18/23 [...] -???-???-???-???-??? -???-???-???-???-??? (more content not included)... Normal [facility] Platelet countOrdered By: Nishant Sauer on 02-16-2025 Platelets (Bld) [#/Vol] 125 10*3/uL Low 150-450 [facility] RBC Auto (Bld) [#/Vol]Ordere d By: Tala Sauer on 02-16-2025 RBC (Bld) [#/Vol] 4.22 10*6/uL 4.2-5.4 [facility] Syphilis Antibodieson 2024 Syphilis Abs Non-Reactive Normal Nonreactive [facility] Comment on above: Performed By: #### L 501.0250, L509.8002, L3890.6006, L100.0100 #### [facility] [address] [place], [address] White blood cell (WBC) count Ordered By: Tala Sauer on 02-16-2025 WBC (Bld) [#/Vol] 6.6 10*3/uL 4.4-11.0 [facility] Laboratory - Chemistry and C hemistry - challengeOrdered By: Tala Sauer on 01-22-2025 Glucose Ql (U) Negative [facility] - UrinalysisOrder ed By: Tala Sauer on 01-22-2025 Protein Ql (U) Negative [facility] Staff Home Therapy Rn Office Visit Reporton 01-22-2025 Staff Home Therapy Rn Office Visit Report [facility], [address] [place] [address] OFFICE VISIT Date of Service: 01/22/25 MR#: [id number] Acct: [id number] Name: MARIMAR MIRZA Rep #: [id number] : 2000 Provider: Dr. Tala Baker DO Age/Sex: 24/F [place] [facility] [place] Status: Signed Intake Vital Signs 11/27/24 11:24 12/25/24 10:16 01/22/25 10:38 01/22/25 10:43 Height 5 ft 6 in 5 ft 6 in 5 ft 6 in 5 ft 6 in Weight: 136 lb 6 oz BMI 22.0 BP 99/58 L Intake Visit Reasons: 23wk ob Chief Complaint: 23 Week OB Melt Room Operator Required: No Is patient in pain?: No Allergies No Known Allergies Allergy (Verified 01/22/25 10:37) Medications ???Medication ???Instructions ???Recorded ???Confirmed ???Type acetaminophen 500 mg tablet 1,000 mg (2 x 500 mg) PO Q6H PRN 1 01/22/25 Rx PRN Pain 1-10 Or Fever #0 tabs multivit-min no.71-iron fum 28 cap PO 10/10/24 01/22/25 History mg-folate no.1 1 mg-dha 300 mg capsule (PNV-Escanaba) Last Menstrual Period: 08/14/24 Zika: Zika virus [...] and running frequency: daily duration: 30-45 minutes/day davide/church: Bahai seatbelt use: always do you feel safe at home: Yes 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 Date Name GA/Weeks Outcome Route Bth Weight Gen Labor Lgth Anesthesia Del Locatn Provider FOB 07/19/19 ADOPTED- [facility] 02/18/23 Indie 39 live - full term 7# Female epidural [facility] Dr. Rinku Calderon Delivery Date: 02/18/23 [...] -???-???-???-???-??? -?? (more content not included)... Normal [facility] - Chemistry and C hemistry - challengeOrdered By: Laurie Cordero on 12-25-2024 Glucose Ql (U) Negative [facility] - UrinalysisOrder ed By: Laurie Cordero on 12-25-2024 Protein Ql (U) Negative [facility] Staff Home Therapy Rn Office Visit Reporton 12-25-2024 Staff Home Therapy Rn Office Visit Report [facility] [address], [address] [place] [address] OFFICE VISIT Date of Service: 12/25/24 MR#: [id number] Acct: [id number] Name: MARIMAR MIRZA Rep #: [id number] : 2000 Provider: Dr. Laurie campa MD Age/Sex: 24/F [place] [facility] [place] Status: Signed Intake Vital Signs 10/20/24 15:14 11/27/24 11:24 12/25/24 10:14 12/25/24 10:16 Height 5 ft 6 in 5 ft 6 in 5 ft 6 in 5 ft 6 in Weight: 132 lb 9 oz BMI 21.4 BP 94/54 L Intake Visit Reasons: 18 wk ob Melt Room Operator Required: No Is patient in pain?: No Allergies No Known Allergies Allergy (Verified 12/25/24 10:13) Medications ???Medication ???Instructions ???Recorded ???Confirmed ???Type acetaminophen 500 mg tablet 1,000 mg (2 x 500 mg) PO Q6H PRN 1 12/25/24 Rx PRN Pain 1-10 Or Fever #0 tabs multivit-min no.71-iron fum 28 cap PO 10/10/24 12/25/24 History mg-folate no.1 1 mg-dha 300 mg capsule (PNV-Escanaba) Last Menstrual Period: 08/14/24 Zika: Zika virus [...] and running frequency: daily duration: 30-45 minutes/day davide/church: Bahai seatbelt use: always do you feel safe at home: Yes 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 Date Name GA/Weeks Outcome Route Bth Weight Gen Labor Lgth Anesthesia Del Locatn Provider FOB 07/19/19 ADOPTED- [facility] 02/18/23 Indie 39 live - full term 7# Female epidural [facility] Dr. Rinku Calderon Delivery Date: 02/18/23 [...] -???-???- SM- (more content not included)... Normal [facility] Staff Home Therapy Rn Office Visit Reporton 11-27-2024 Staff Home Therapy Rn Office Visit Report [facility] [address], [address] [place] [address] OFFICE VISIT Date of Service: 11/27/24 MR#: [id number] Acct: [id number] Name: MARIMAR MIRZA Rep #: [id number] : 2000 Provider: JAY JAY [place] Age/Sex: 24/F [place] [facility] [place] Status: Signed Intake Vital Signs 09/25/24 08:47 10/20/24 15:14 11/27/24 11:21 11/27/24 11:24 Height 5 ft 6 in 5 ft 6 in 5 ft 6 in 5 ft 6 in Weight: 128 lb 4 oz BMI 20.7 BP 104/63 Intake Visit Reasons: 14wks ob Chief Complaint: 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 Required: No Is patient in pain?: No Allergies No Known Allergies Allergy (Verified 11/27/24 11:20) Medications ???Medication ???Instructions ???Recorded ???Confirmed ???Type acetaminophen 500 mg tablet 1,000 mg (2 x 500 mg) PO Q6H PRN 1 11/27/24 Rx PRN Pain 1-10 Or Fever #0 tabs multivit-min no.71-iron fum 28 cap PO 10/10/24 11/27/24 History mg-folate no.1 1 mg-dha 300 mg capsule (PNV-Escanaba) Last Menstrual Period: 08/14/24 : No PFSH [...] and running frequency: daily duration: 30-45 minutes/day davide/church: Bahai seatbelt use: always do you feel safe at home: Yes 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 Date Name GA/Weeks Outcome Route Bth Weight Gen Labor Lgth Anesthesia Del Locatn Provider FOB 07/19/19 ADOPTED- [facility] 02/18/23 Indie 39 live - full term 7# Female epidural [facility] Dr. Rinku Calderon Delivery Date: 02/18/23 [...] Hazards, Anti (more content not included)... Normal [facility] Chlamydia/GC ANALY aptimaon CHLAMY,NUC ACID Negative Normal Negative [facility] Comment on above: Performed By: #### L 7000.1800, L7400.0353 ####[facility] [address] [place], [place], [address] GC BY NUC ACID Negative Normal Negative [facility] Comment on above: Result Comment: Perf ormed at: =G - [facility] [address], [place] [id number] Box Nailer: Siomara Duarte MD, Phone: [phone] Performed By: #### L 7000.1800, L7400.0353 ####[facility] [address] [place], [place], [id number] PAP I-G w/rfx hrHPV-Aptimaon 10-23-2024 ADEQ Comment Normal . [facility] Comment on above: Order Comment: Speci men Comment: [id number] Comment: No. of containers..01 ThinPrep Vial Result Comment: Sati sfactory for evaluation. Endocervical and/or squamous metaplastic cells (endocervical component) are present. Performed By: #### L 7000.1800, L7400.0353 ####[facility] [address] [place], [place], [id number] COMM . Normal . [facility] Comment on above: Order Comment: Specyenni mazariegos Comment: [id number] Comment: No. of containers..01 ThinPrep Vial Performed By: #### L 7000.1800, L7400.0353 ####[facility] [address] [place], [address] COMMENT Comment Normal . [facility] Comment on above: Order Comment: Speci men Comment: [id number] Comment: No. of containers..01 ThinPrep Vial Result Comment: This liquid based ThinPrep(R) pap test was screened with the use of an image guided system. Performed By: #### L 7000.1800, L7400.0353 ####[facility] [address] [place], [place], [id number] DIAG Comment Normal . [facility] Comment on above: Order Comment: Speci men Comment: [id number] Comment: No. of containers..01 ThinPrep Vial Result Comment: NEGA TIVE FOR INTRAEPITHELIAL LESION OR MALIGNANCY. Performed By: #### L 7000.1800, L7400.0353 ####[facility] [address] [place], [place], [id number] HPV RFLX Comment Normal . [facility] Comment on above: Order Comment: Speci men Comment: [id number] Comment: No. of containers..01 ThinPrep Vial Result Comment: The HPV DNA reflex criteria were not met with this specimen result therefore, no HPV testing was performed. Performed at: - [address] [id number] Box Nailer: Siomara Duarte MD, Phone: [phone] Performed By: #### L 7000.1800, L7400.0353 ####[facility] [address] [place], [place], [id number] PAPSMR Comment Normal . [facility] Comment on above: Order Comment: Speci men Comment: [id number] Comment: No. of containers..01 ThinPrep Vial Result Comment: The Pap smear is a screening test designed to aid in the detection of premalignant and malignant conditions of the uterine cervix. It is not a diagnostic procedure and should not be used as the sole means of detecting cervical cancer. Both false-positive and false-negative reports do occur. Performed By: #### L 7000.1800, L7400.0353 ####[facility] [address] [place], [place], [phone] PERFORM Comment Normal . [facility] Comment on above: Order Comment: Speci men Comment: [id number] Comment: No. of containers..01 ThinPrep Vial Result Comment: Raven Trinidad, Check Services Clerk (ASCP) Performed By: #### L 7000.1800, L7400.0353 ####[facility] [address] [place], [place], [id number] Urine Cultureon 10-22-2024 [facility] Mixed Gram Positive Organisms [place] Count 11,000-25,000 MIXC Mixed contaminants. Submit a new specimen if indicated. Normal [facility] Comment on above: Performed By: #### M 100.2200 #### [facility] [address] [place], [place], [id number] ABORh Blood Type, Patienton 10-20-2024 ABO and Rh group Nom (Bld) Blood group A Rh(D) positive Normal [facility] Comment on above: Order Comment: PN Performed By: #### L 100.0100, Q28898-9, L3890.6301, BTS, L3890.6102, L3890.6006, L509.8002, BtABORH, L509.4006 ####[facility] [address] [place], [place], [phone] Absolute lymphocyte countOrd ered By: Laurie Cordero on 10-20-2024 Lymphocytes Auto (Unsp spec) [#/Vol] 1.53 10*3/uL 0.83-4.51 [facility] Absolute neutrophil countOrd ered By: Laurie Cordero on 10-20-2024 Neutrophils (Bld) [#/Vol] 5.5 10*3/uL 2.0-7.7 [facility] Automated lymphocyte count a s percentage of total leukocytesOrdered By: Laurie Cordero on 10-20-2024 Lymphocytes/100 WBC Auto (Unsp spec) 19.8 % 19-41 [facility] Basophil percentageOrdered B y: Laurie Cordero on 10-20-2024 Basophils/100 WBC (Bld) 0.6 % 0-[address] [facility] CBC W/Diff, Automatedon 10-05 Absolute Lymph 1.53 X10 3/uL Normal 0.83-4.51 [facility] Comment on above: Performed By: #### L 100.0100, W40112-8, L3890.6301, BTS, L3890.6102, L3890.6006, L509.8002, BtABORH, L509.4006 #### [facility] [address] [place], [address] Absolute Neut 5.5 X10 3/uL Normal 2.0-7.7 [facility] Comment on above: Performed By: #### L 100.0100, V16476-9, L3890.6301, BTS, L3890.6102, L3890.6006, L509.8002, BtABORH, L509.4006 #### [facility] [address] [place], [address] Basophils/100 WBC (Bld) 0.6 % Normal 0-[address] [facility] Comment on above: Performed By: #### L 100.0100, Y95108-5, L3890.6301, BTS, L3890.6102, L3890.6006, L509.8002, BtABORH, L509.4006 #### [facility] [address] [place], [address] Eosinophils/100 WBC (Bld) 1.3 % Normal 0-5 [facility] Comment on above: Performed By: #### L 100.0100, Y29061-8, L3890.6301, BTS, L3890.6102, L3890.6006, L509.8002, BtABORH, L509.4006 #### [facility] [address] [place], [address] Erythrocyte distribution width (RBC) [Ratio] 12.9 % Normal 11.6-14.6 [facility] Comment on above: Performed By: #### L 100.0100, M64956-3, L3890.6301, BTS, L3890.6102, L3890.6006, L509.8002, BtABORH, L509.4006 #### [facility] [address] [place], [address] Hematocrit (Bld) [Volume fraction] 38.2 % Normal 37-47 [facility] Comment on above: Performed By: #### L 100.0100, B33774-9, L3890.6301, BTS, L3890.6102, L3890.6006, L509.8002, BtABORH, L509.4006 #### [facility] [address] [place], [address] Hemoglobin (Bld) [Mass/Vol] 13.3 g/dL Normal 12.0-15.0 [facility] Comment on above: Performed By: #### L 100.0100, A70967-9, L3890.6301, BTS, L3890.6102, L3890.6006, L509.8002, BtABORH, L509.4006 #### [facility] [address] [place], [address] IG% 0.400 Normal 0.0-0.9 [facility] Comment on above: Result Comment: IG% - Immature Granulocytes (promyelocytes, myelocytes and metamyelocytes) > 1% indicates that a LEFT SHIFT is Present. Performed By: #### L 100.0100, Z34412-7, L3890.6301, BTS, L3890.6102, L3890.6006, L509.8002, BtABORH, L509.4006 #### [facility] [address] [place], [address] Lymphocytes/100 WBC (Bld) 19.8 % Normal 19-41 [facility] Comment on above: Performed By: #### L 100.0100, H80037-9, L3890.6301, BTS, L3890.6102, L3890.6006, L509.8002, BtABORH, L509.4006 #### [facility] [address] [place], [address] MCH (RBC) [Entitic mass] 31.6 pg Normal 27.0-32.0 [facility] Comment on above: Performed By: #### L 100.0100, B32284-8, L3890.6301, BTS, L3890.6102, L3890.6006, L509.8002, BtABORH, L509.4006 #### [facility] [address] [place], [address] MCHC (RBC) [Mass/Vol] 34.8 g/dL Normal 32-36 [facility] Comment on above: Performed By: #### L 100.0100, V39795-9, L3890.6301, BTS, L3890.6102, L3890.6006, L509.8002, BtABORH, L509.4006 #### [facility] [address] [place], [address] MCV (RBC) [Entitic vol] 90.7 fL Normal 81-[address] [facility] Comment on above: Performed By: #### L 100.0100, A95850-8, L3890.6301, BTS, L3890.6102, L3890.6006, L509.8002, BtABORH, L509.4006 #### [facility] [address] [place], [address] Monocytes/100 WBC (Bld) 6.1 % Normal 0-[address] [facility] Comment on above: Performed By: #### L 100.0100, C28899-7, L3890.6301, BTS, L3890.6102, L3890.6006, L509.8002, BtABORH, L509.4006 #### [facility] [address] [place], [address] Neutrophils/100 WBC (Bld) 71.8 % High 47-70 [facility] Comment on above: Performed By: #### L 100.0100, R53483-6, L3890.6301, BTS, L3890.6102, L3890.6006, L509.8002, BtABORH, L509.4006 #### [facility] [address] [place], [address] Nucleated RBC (Bld) [#/Vol] 0 10*3/uL Normal 0-5 [facility] Comment on above: Performed By: #### L 100.0100, T41913-0, L3890.6301, BTS, L3890.6102, L3890.6006, L509.8002, BtABORH, L509.4006 #### [facility] [address] [place], [address] Platelet mean volume (Bld) [Entitic vol] 12.6 fL High 6.2-12.0 [facility] Comment on above: Performed By: #### L 100.0100, W38101-0, L3890.6301, BTS, L3890.6102, L3890.6006, L509.8002, BtABORH, L509.4006 #### [facility] [address] [place], [address] Platelets (Bld) [#/Vol] 160 10*3/uL Normal 150-450 [facility] Comment on above: Performed By: #### L 100.0100, X24878-7, L3890.6301, BTS, L3890.6102, L3890.6006, L509.8002, BtABORH, L509.4006 #### [facility] [address] [place], [address] RBC (Bld) [#/Vol] 4.21 10*6/uL Normal 4.2-5.4 [facility] Comment on above: Performed By: #### L 100.0100, X07980-5, L3890.6301, BTS, L3890.6102, L3890.6006, L509.8002, BtABORH, L509.4006 #### [facility] [address] [place], [address] RDW SD 42.4 fl Normal 35.1-43.9 [facility] Comment on above: Performed By: #### L 100.0100, S98332-2, L3890.6301, BTS, L3890.6102, L3890.6006, L509.8002, BtABORH, L509.4006 #### [facility] [address] [place], [address] WBC (Bld) [#/Vol] 7.7 10*3/uL Normal 4.4-11.0 [facility] Comment on above: Performed By: #### L 100.0100, Y57000-6, L3890.6301, BTS, L3890.6102, L3890.6006, L509.8002, BtABORH, L509.4006 #### [facility] [address] [place], [address] Cervical or vagninal specime n microscopic examination by cytology stain (reported asOrdered By: Laurie Cordero on 10-20-2024 Cytology report Cyto stain Doc (Cvx/Vag) Comment . [facility] Comment on above: The Pap smear is [...] rRNA ANALY+probe Ql (Unsp spec) Negative Negative [facility] Eosinophil percentageOrdered By: Laurie Cordero on 10-20-2024 Eosinophils/100 WBC (Bld) 1.3 % 0-5 [facility] Erythrocyte distribution wid th ratioOrdered By: Laurie Cordero on 10-20-2024 Erythrocyte distribution width (RBC) [Ratio] 12.9 % 11.6-14.6 [facility] Erythrocyte distribution wid th standard deviationOrdered By: Laurie Cordero on 10-20-2024 Erythrocyte distribution width (RBC) [Ratio] 42.4 fl 35.1-43.9 [facility] HIVon 10-20-2024 HIV Non-Reactive Normal Nonreactive [facility] Comment on above: Result Comment: Non- Reactive Reactive Repeatedly reactive samples must be confirmed according to CDC recommended confirmatory algorithms. The subresults for either HIVAG or AHIV can be used as an aid in the selection of the confirmation algorithm for reactive samples. Send out specimens with Reactive results to [facility] for confirmation. Order the HIV antibody detection and differentiation: [id number] Performed By: #### L 100.0100, B76953-5, L3890.6301, BTS, L3890.6102, L3890.6006, L509.8002, BtABORH, L509.4006 ####[facility] [address] [place], [place], [phone] Hematocrit Auto (Bld) [Volum e fraction]Ordered By: Laurie Cordero on 10-20-2024 Hematocrit (Bld) [Volume fraction] 38.2 % 37-47 [facility] Hemoglobin measurementOrdere d By: Laurie Cordero on 10-20-2024 Hemoglobin (Bld) [Mass/Vol] 13.3 g/dL 12.0-15.0 [facility] Hepatitis C Antibodyon 10-20 Hepatitis C Ab Non-Reactive Normal Nonreactive [facility] Comment on above: Result Comment: Reac tive: Presumptive evidence of antibodies to HCV. Follow CDC recommendations for supplemental testing. Non-Reactive: Antibodies to HCV were not detected; does not exclude the possibility of exposure to HCV Reactive Results are presumptive evidence of antibodies to HCV. Follow CDC recommendations for supplemental testing. Order confirmation testing: HCV Quant by PCR testing - HCVPCR #[id number] Non Reactive: < 0.8 Equivocal: >/= 0.8 to < 1.0 Reactive: >/= 1.0 The [facility] requires that a reactive/equivocal HCV antibody result be sent out for confirmation. HCV Quant by PCR testing. Performed By: #### L 100.0100, B67396-7, L3890.6301, BTS, L3890.6102, L3890.6006, L509.8002, BtABORH, L509.4006 ####[facility] [address] [place], [place], [phone] Immature granulocytes/100 WB C Auto (Bld)Ordered By: Laurie Cordero on 10-20-2024 Immature granulocytes/100 WBC (Bld) 0.400 % 0.0-0.9 [facility] Comment on above: IG% - Immature Granu locytes (promyelocytes, myelocytes and metamyelocytes) > 1% indicates that a LEFT SHIFT is Present. L3890.6102on 10-20-2024 HEP B Surf Ag Non-Reactive Normal Nonreactive [facility] Comment on above: Result Comment: Reac tive: Presumptive evidence of HBV. Repeatedly reactive samples must be confirmed using a neutralization test ([employer] HBsAg Confirmatory Test) Non-Reactive: HBsAg not detected; does not exclude the possibility of exposure to HBV Performed By: #### L 100.0100, E35925-1, L3890.6301, BTS, L3890.6102, L3890.6006, L509.8002, BtABORH, L509.4006 ####[facility] [address] [place], [place], [id number] L509.4006on 10-20-2024 Rubella IgG REAC Normal Nonreactive [facility] Comment on above: Result Comment: Anti body Result: Interpretation Non-Reactive: Non-Immune Reactive: Immune The following results were obtained with the [employer] Rubella IgG assay. Results from assays of other manufacturers cannot be used interchangeably. Performed By: #### L 100.0100, P61648-9, L3890.6301, BTS, L3890.6102, L3890.6006, L509.8002, BtABORH, L509.4006 #### [facility] [address] [place], [place], [id number] Laboratory - CytologyOrdered By: Laurie Cordero on 10-20-2024 Check Services Clerk Cyto stain Nom (Cvx/Vag) [ID] Comment . [facility] Comment on above: Roshni Dyson (ASCP) Laboratory - Microbiology an d Antimicrobial susceptibilityOrdered By: Laurie Cordero on 10-20-2024 HBV surface Ag Ql (S) Non-Reactive Nonreactive [facility] Comment on above: Reactive: Presumptiv e evidence of HBV. Repeatedly reactive samples must be confirmed using a neutralization test ([employer] HBsAg Confirmatory Test)Non-Reactive: HBsAg not detected; does not exclude the possibility of exposure to HBV Laboratory - Miscellaneous t estsOrdered By: Laurie Cordero on 10-20-2024 Service comment (Unsp spec) [Interp] . . [facility] MCV (mean corpuscular volume ) determinationOrdered By: Laurie Cordero on 10-20-2024 MCV (RBC) [Entitic vol] 90.7 fL 81-[address] [facility] Mean corpuscular hemoglobin (MCH) determinationOrdered By: Laurie Cordero on 10-20-2024 MCH (RBC) [Entitic mass] 31.6 pg 27.0-32.0 [facility] Mean corpuscular hemoglobin concentration (MCHC) determinationOrdered By: Laurie Cordero on 10-20-2024 MCHC (RBC) [Mass/Vol] 34.8 g/dL 32-36 [facility] Mean platelet volume determi nationOrdered By: Laurie Cordero on 10-20-2024 Platelet mean volume (Bld) [Entitic vol] 12.6 fL High 6.2-12.0 [facility] Monocyte percentageOrdered B y: Laurie Consuelo on 10-20-2024 Monocytes/100 WBC (Bld) 6.1 % 0-[address] [facility] Neisseria gonorrhoeae nuclei c acid detection by amplified probe techniqueOrdered By: Laurie Cordero on 10-20-2024 N. gonorrhoeae DNA ANALY+probe Ql (Unsp spec) Negative Negative [facility] Comment on above: Performed at: [address] [id number] Director: Siomara Duarte MD, Phone: [phone] Neutrophil percentageOrdered By: Laurie Cordero on 10-20-2024 Neutrophils/100 WBC (Bld) 71.8 % High 47-70 [facility] No Panel InformationOrdered By: Laurie Cordero on 10-20-2024 Pap Smear Specimen Adequacy Comment . [facility] Comment on above: Satisfactory for farrukh luation. Endocervical and/or squamous metaplasticcells (endocervical component) are present. HIV (1&2) Antibody Non-Reactive Nonreactive [facility] Comment on above: Non-ReactiveReactive Repeatedly reactive samples must be confirmed according to CDC recommended confirmatory algorithms. The subresults for either HIVAG or AHIV can be used as an aid in the selection of the confirmation algorithm for reactive samples.Send out specimens with Reactive results to [facility] for confirmation.Order the HIV antibody detection and differentiation: #[id number] Nucleated red blood cell per centageOrdered By: Laurie Cordero on 10-20-2024 Nucleated RBC/100 WBC (Bld) [Ratio] 0 % 0-5 [facility] Staff Home Therapy Rn Office Visit Reporton 10-20-2024 Staff Home Therapy Rn Office Visit Report [facility] [address], [address] [place] [address] OFFICE VISIT Date of Service: 10/20/24 MR#: [id number] Acct: [id number] Name: MARIMAR MIRZA Rep #: [id number] : 2000 Provider: Dr. Laurie campa MD Age/Sex: 24/F [place] [facility] [place]: Signed Intake Vital Signs 02/18/23 04:08 09/25/24 08:47 10/20/24 15:14 Height 5 ft 6 in 5 ft 6 in 5 ft 6 in Weight: 125 lb 8 oz BMI 20.2 BP 96/54 L Intake Visit Reasons: *NEW* NOB LMP 08/14, BILL 05/21 Melt Room Operator Required: No Is patient in pain?: No Allergies No Known Allergies Allergy (Verified 10/20/24 15:20) Medications ???Medication ???Instructions ???Recorded ???Confirmed ???Type acetaminophen 500 mg tablet 1,000 mg (2 x 500 mg) PO Q6H PRN 1 10/10/24 Rx PRN Pain 1-10 Or Fever #0 tabs multivit-min no.71-iron fum 28 cap PO 10/10/24 10/10/24 History mg-folate no.1 1 mg-dha 300 mg capsule (PNV-Escanaba) Last Menstrual Period: 08/14/24 Zika: Zika virus [...] and running frequency: daily duration: 30-45 minutes/day davide/church: Bahai seatbelt use: always do you feel safe at home: Yes 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 Date Name GA/Weeks Outcome Route Bth Weight Infant Gen Labor Lgth Anesthesia Del Locatn Provider FOB 07/19/19 ADOPTED- [facility] 02/18/23 Indie 39 live - full term 7# Female epidural [facility] Dr. Rinku Calderon Delivery Date: 02/18/23 [...] Evaristo-Sachs: O (more content not included)... Normal [facility] Platelet countOrdered By: Bhavani Cordero on 10-20-2024 Platelets (Bld) [#/Vol] 160 10*3/uL 150-450 [facility] RBC Auto (Bld) [#/Vol]Ordere d By: Laurie Cordero on 10-20-2024 RBC (Bld) [#/Vol] 4.21 10*6/uL 4.2-5.4 [facility] Syphilis Antibodieson 2024 Syphilis Abs Non-Reactive Normal Nonreactive [facility] Comment on above: Performed By: #### L 100.0100, M08598-7, L3890.6301, BTS, L3890.6102, L3890.6006, L509.8002, BtABORH, L509.4006 ####[facility] [address] [place], [place], [id number] Type AND Screenon 10-20-2024 Ab SCREEN GEL TNP Normal [facility] Comment on above: Order Comment: PN Performed By: #### L 100.0100, O99682-7, L3890.6301, BTS, L3890.6102, L3890.6006, L509.8002, BtABORH, L509.4006 ####[facility] [address] [place], [address] Urine cultureOrdered By: Wilbert Cordero on 10-20-2024 Bacteria identified Cx Nom (U) Positive Abnormal [facility] White blood cell (WBC) count Ordered By: Laurie Cordero on 10-20-2024 WBC (Bld) [#/Vol] 7.7 10*3/uL 4.4-11.0 [facility] Laboratory - Chemistry and C hemistry - challengeOrdered By: Laurie Cordero on 09-25-2024 HCG ( test) Ql (U) Positive [facility] Office Visit Reporton 2024 Office Visit Report [facility] [address] [place] [address] OFFICE VISIT Date of Service: 09/25/24 MR#: [id number] Acct: [id number] Patient: MARIMAR MIRZA Rep #: [id number] : 2000 Provider: Dr. Laurie campa MD Age/Sex: 24/F Location[place] [facility] [place] Status: Signed Intake Vital Signs 02/18/23 04:08 09/25/24 08:47 Height 5 ft 6 in 5 ft 6 in Weight: 128 lb 2 oz BMI 20.7 BP 108/71 Intake Visit Reasons: Establish care, Confirm Chief Complaint: Establish Care, Confirm Melt Room Operator Required: No Is patient in pain?: No [...] Cosign Signature: Date (if applicable) CC: Normal [facility] 5 HCG.beta subunit Qn 4.0 m[IU]/mL Normal <5.0 [facility] Comment on above: Order Comment: Speci men Type: BLOOD SPECIMEN Ordering Facility: [facility] Address: [address] [place] [address] Result Comment: Edison sanchez Performed By: #### 2 1198-7 #### [facility] CLIA [id number] [address] [place] [address] [place] [address] [place] Laurent 05-26-2024 MISSYN Telephone (OBGYWM) MARIMAR MIRZA ([id number]) 2000 F Date Time Provider Department 05/26/24 [...] early [O20.9] Order(s):HCG QUANTITATIVE [SQHCGQT] Order #: [id number] STANDING Prescriptions as of 05/26/2024 - VIT 81-ZTCA-PTYCY-DHA ORAL Take by mouth. - ALBUTEROL SULFATE HFA INHALATION Inhale as instructed. Problem List As Of Date 05/26/2024 Noted Resolved with care elsewhere, antepar*01/03/2023 04/02/2023 Benign gestational thrombocytopenia, antepartum* 3 04/02/2023 Uterine size-date discrepancy, third trimester *02/12/2023 04/02/2023 Encounter Status:Closed by TALA SINCLAIR on 05/26/24 [facility] CNOVon 05-15-2024 CNOV Office Visit (OBGYWM) MARIMAR MIRZA ([id number]) 2000 F Date Time Provider Department 05/15/24 [...] L1 SAB0 IAB0 Ectopic0 Multiple0 Live Births1 Mattress Renovator History LMP: 04/20/2024 (Exact Date), Having periods Age at Menarche: Age at First : Age at Menopause: Mattress Renovator History Comments: Sexual Activity: Yes; Male Contraception: [...] discussed with the Patient or Patient's Authorized Jewelry Model Maker. As applicable, any other physician, advance practice provider, medical student, or other health professional student that will be observing or involved in the sensitive examination for educational or training purposes was discussed with the Patient or Authorized Jewelry Model Maker. The Patient or Authorized Jewelry Model Maker has agreed to proceed with the sensitive [...] external genitalia normal, normal Bartholin's glands, urethra, Blue Diamond's glands, no vulvar lesions, no cervical lesions, [...] [Z01.419] Prescriptions as of 05/15/2024 - VIT 13-ARCT-ZIBAY-DHA ORAL Take by mouth. - ALBUTEROL SULFATE HFA INHALATION Inhale as instructed. Problem List As Of Date 05/15/2024 Noted Resolved with care elsewhere, antepar*01/03/2023 04/02/2023 Benign gestational thrombocytopenia, antepartum*04/02/2023 Uterine size-date discrepancy, third trimester *02/12/2023 04/02/2023 Medications Discontinued (more content not included)... Normal [facility] 03-11-2024 CNPN Telephone (OBGYWM) MARIMAR MIRZA ([id number]) 2000 F Date Time Provider Department 03/11/24 [...] tablet by mouth every day - VIT 52-PCKD-RAPJA-DHA ORAL Take by mouth. - ALBUTEROL SULFATE HFA INHALATION Inhale as instructed. Problem List As Of Date 03/11/2024 Noted Resolved with care elsewhere, antepar*01/03/2023 04/02/2023 Benign gestational thrombocytopenia, antepartum* 3 04/02/2023 Uterine size-date discrepancy, third trimester *02/12/2023 04/02/2023 Encounter Status:Closed by TALA SINCLAIR on 03/11/24 Normal [facility] Absolute lymphocyte countOrd ered By: Didier Dasilva on 02-18-2023 Lymphocytes Auto (Unsp spec) [#/Vol] 1.29 10*3/uL 0.83-4.51 [facility] Basophil percentageOrdered B y: Didier Dasilva on 02-18-2023 Basophils/100 WBC (Bld) 0.3 % 0-[address] [facility] Eosinophils/100 WBC (Bld) 1.2 % 0-5 [facility] Neutrophils (Bld) [#/Vol] 4.2 10*3/uL 2.0-7.7 [facility] Neutrophils/100 WBC (Bld) 68.8 % 47-70 [facility] WBC (Bld) [#/Vol] 6.1 10*3/uL 4.4-11.0 [facility] Blood erythrocytes count (nu mber/volume)Ordered By: Didier Dasilva on 02-18-2023 RBC (Bld) [#/Vol] 4.18 10*6/uL 4.2-5.4 [facility] Blood hemoglobin measurement (mass/volume)Ordered By: Didier Dasilva on 02-18-2023 Hemoglobin (Bld) [Mass/Vol] 13.2 g/dL 12.0-15.0 [facility] Blood lymphocytes/100 leukoc ytesOrdered By: Didier Dasilva on 02-18-2023 Lymphocytes/100 WBC (Bld) 21.3 % 19-41 [facility] Blood monocytes/100 leukocyt esOrdered By: Didier Dasilva on 02-18-2023 Monocytes/100 WBC (Bld) 7.9 % 0-[address] [facility] Blood platelet mean volumeOr dered By: Didier Dasilva on 02-18-2023 Platelet mean volume (Bld) [Entitic vol] 13.2 fL 6.2-12.0 [facility] Determination of erythrocyte mean corpuscular volume (MCV)Ordered By: Didier Dasilva on 02-18-2023 MCV (RBC) [Entitic vol] 95.9 fL 81-[address] [facility] Hematocrit Auto (Bld) [Volum e fraction]Ordered By: Didier Dasilva on 02-18-2023 Hematocrit (Bld) [Volume fraction] 40.1 % 37-47 [facility] - Hematology and Cell countsOrdered By: Didier Dasilva on 02-18-2023 Erythrocyte distribution width (RBC) [Entitic vol] 45.1 fL 35.1-43.9 [facility] Erythrocyte distribution width (RBC) [Ratio] 13.0 % 11.6-14.6 [facility] Immature granulocytes/100 WBC (Bld) 0.500 % 0.0-0.9 [facility] Comment on above: IG% - Immature Granu locytes (promyelocytes, myelocytes and metamyelocytes) > 1% indicates that a LEFT SHIFT is Present. MCH (RBC) [Entitic mass] 31.6 pg 27.0-32.0 [facility] Nucleated RBC/100 WBC (Bld) [Ratio] 0 % 0-5 [facility] MCHC Auto (RBC) [Mass/Vol]Or dered By: Didier Dasilva on 02-18-2023 MCHC (RBC) [Mass/Vol] 32.9 g/dL 32-36 [facility] No Panel InformationOrdered By: Didier Dasilva on 02-18-2023 Vaginal Amniotic Fluid Detection Positive Negative [facility] Comment on above: Amniotic fluid prese nt indicates rupture of Membranes. RESULTS CALLED TO Zoe BARR RN () 02/18/23 0355 [address].REPORT READ BACK BY SAME . Platelets bldOrdered By: Lianna Dasilva on 02-18-2023 Platelets (Bld) [#/Vol] 117 10*3/uL 150-450 [facility] Serum Treponema species anti body detectionOrdered By: Didier Dasilva on 02-18-2023 Treponema sp Ab Ql (S) Non-Reactive [facility] OBSTETRIC ULTRASOUND WHIon 1 [facility] URINE OB DIP B/Oon 3 Glucose Ql (U) Negative Neg mg/dL [facility] Protein.monoclonal (U) [Mass/Vol] Negative Neg mg/dL [facility] URINE OB DIP B/Oon Glucose Ql (U) Negative Neg mg/dL [facility] Protein.monoclonal (U) [Mass/Vol] Negative Neg mg/dL [facility] Absolute lymphocyte countOrd ered By: Manuela Rios on 12-01-2022 Lymphocytes Auto (Unsp spec) [#/Vol] 1.06 10*3/uL 0.83-4.51 [facility] Basophil percentageOrdered B y: Manuela Rios on 12-01-2022 Basophils/100 WBC (Bld) 0.7 % 0-[address] [facility] Eosinophils/100 WBC (Bld) 1.6 % 0-5 [facility] Neutrophils (Bld) [#/Vol] 5.4 10*3/uL 2.0-7.7 [facility] Neutrophils/100 WBC (Bld) 76.2 % 47-70 [facility] WBC (Bld) [#/Vol] 7.1 10*3/uL 4.4-11.0 [facility] Blood erythrocytes count (nu mber/volume)Ordered By: Manuela Rios on 12-01-2022 RBC (Bld) [#/Vol] 3.87 10*6/uL 4.2-5.4 [facility] Blood hemoglobin measurement (mass/volume)Ordered By: Manuela Rios on 12-01-2022 Hemoglobin (Bld) [Mass/Vol] 12.7 g/dL 12.0-15.0 [facility] Blood lymphocytes/100 leukoc ytesOrdered By: Manuela Rios on 12-01-2022 Lymphocytes/100 WBC (Bld) 15.0 % 19-41 [facility] Blood monocytes/100 leukocyt esOrdered By: Manuela Rios on 12-01-2022 Monocytes/100 WBC (Bld) 5.2 % 0-[address] [facility] Blood platelet mean volumeOr dered By: Manuela Rios on 12-01-2022 Platelet mean volume (Bld) [Entitic vol] 12.0 fL 6.2-12.0 [facility] Determination of erythrocyte mean corpuscular volume (MCV)Ordered By: Manuela Rios on 12-01-2022 MCV (RBC) [Entitic vol] 97.7 fL 81-[address] [facility] Gestational diabetes screen 1-hour screen with 50g oral glucose loadOrdered By: Manuela Rios on 12-01-2022 Glucose 1 Hr post 50 g glucose PO [Mass/Vol] 118 mg/dL 70-140 [facility] Hematocrit Auto (Bld) [Volum e fraction]Ordered By: Manuela Rios on 12-01-2022 Hematocrit (Bld) [Volume fraction] 37.8 % 37-47 [facility] Laboratory - Hematology and Cell countsOrdered By: Manuela Rios on 12-01-2022 Erythrocyte distribution width (RBC) [Entitic vol] 48.1 fL 35.1-43.9 [facility] Erythrocyte distribution width (RBC) [Ratio] 13.6 % 11.6-14.6 [facility] Immature granulocytes/100 WBC (Bld) 1.300 % 0.0-0.9 [facility] Comment on above: IG% - Immature Granu locytes (promyelocytes, myelocytes and metamyelocytes) > 1% indicates that a LEFT SHIFT is Present. MCH (RBC) [Entitic mass] 32.8 pg 27.0-32.0 [facility] Nucleated RBC/100 WBC (Bld) [Ratio] 0 % 0-5 [facility] MCHC Auto (RBC) [Mass/Vol]Or dered By: Manuela Rios on 12-01-2022 MCHC (RBC) [Mass/Vol] 33.6 g/dL 32-36 [facility] Platelets bldOrdered By: Ameya Rios on 12-01-2022 Platelets (Bld) [#/Vol] 130 10*3/uL 150-450 [facility] Serum Treponema species anti body detectionOrdered By: Manuela Rios on 12-01-2022 Treponema sp Ab Ql (S) Non-Reactive [facility] Culture, urineOrdered By: Dr Soledad Rios on 07-09-2022 Bacteria identified Cx Nom (U) Culture exhibits no growth. [facility] Absolute lymphocyte countOrd ered By: Dr. Rios on 07-07-2022 Lymphocytes Auto (Unsp spec) [#/Vol] 1.15 10*3/uL 0.83-4.51 [facility] Basophil percentageOrdered B y: Dr. Rios on 07-07-2022 Basophils/100 WBC (Bld) 0.7 % 0-[address] [facility] Eosinophils/100 WBC (Bld) 1.1 % 0-5 [facility] Neutrophils (Bld) [#/Vol] 3.8 10*3/uL 2.0-7.7 [facility] Neutrophils/100 WBC (Bld) 70.3 % 47-70 [facility] WBC (Bld) [#/Vol] 5.4 10*3/uL 4.4-11.0 [facility] Blood erythrocytes count (nu mber/volume)Ordered By: Dr. Rios on 07-07-2022 RBC (Bld) [#/Vol] 4.04 10*6/uL 4.2-5.4 [facility] Blood hemoglobin measurement (mass/volume)Ordered By: Dr. Rios on 07-07-2022 Hemoglobin (Bld) [Mass/Vol] 12.9 g/dL 12.0-15.0 [facility] Blood lymphocytes/100 leukoc ytesOrdered By: Dr. Rios on 07-07-2022 Lymphocytes/100 WBC (Bld) 21.5 % 19-41 [facility] Blood monocytes/100 leukocyt esOrdered By: Dr. Rios on 07-07-2022 Monocytes/100 WBC (Bld) 6.2 % 0-[address] [facility] Blood platelet mean volumeOr dered By: Dr. Rios on 07-07-2022 Platelet mean volume (Bld) [Entitic vol] 11.4 fL 6.2-12.0 [facility] Determination of erythrocyte mean corpuscular volume (MCV)Ordered By: Dr. Rios on 07-07-2022 MCV (RBC) [Entitic vol] 93.8 fL 81-[address] [facility] HIV 1 and HIV-2 antibody ass ay with HIV-1 p24 antigen detectionOrdered By: Dr. Rios on 07-07-2022 HIV 1+2 Ab+HIV1 p24 Ag IA Ql Non-Reactive Nonreactive [facility] Hematocrit Auto (Bld) [Volum e fraction]Ordered By: Dr. Rios on 07-07-2022 Hematocrit (Bld) [Volume fraction] 37.9 % 37-47 [facility] - Hematology and Cell countsOrdered By: Dr. Rios on 07-07-2022 Erythrocyte distribution width (RBC) [Entitic vol] 43.5 fL 35.1-43.9 [facility] Erythrocyte distribution width (RBC) [Ratio] 12.6 % 11.6-14.6 [facility] Immature granulocytes/100 WBC (Bld) 0.200 % 0.0-0.9 [facility] Comment on above: IG% - Immature Granu locytes (promyelocytes, myelocytes and metamyelocytes) > 1% indicates that a LEFT SHIFT is Present. MCH (RBC) [Entitic mass] 31.9 pg 27.0-32.0 [facility] Nucleated RBC/100 WBC (Bld) [Ratio] 0 % 0-5 [facility] MCHC Auto (RBC) [Mass/Vol]Or dered By: Dr. Rios on 07-07-2022 MCHC (RBC) [Mass/Vol] 34.0 g/dL 32-36 [facility] No Panel InformationOrdered By: Dr. Rios on 07-07-2022 Hepatitis B Surface Antigen Non-Reactive Nonreactive [facility] Hepatitis C Antibody Non-Reactive Nonreactive [facility] Comment on above: Non Reactive: < 0.8 Equivocal: >/= 0.8 to < 1.0 Reactive: >/= 1.0The CDC recommends that a reactive/equivocal HCV antibody result be followed up by the HCV Nucleic Acid Amplificationtest (947029) Rubella IgG Antibody Reactive Nonreactive [facility] Comment on above: Antibody Results Int erpretation of Immune Status Non Reactive Presumed Non-Immune Equivocal Equivocal Reactive Presumed Immune Platelets bldOrdered By: Dr. Rios on 07-07-2022 Platelets (Bld) [#/Vol] 150 10*3/uL 150-450 [facility] Serum Treponema species anti body detectionOrdered By: Dr. Rios on 07-07-2022 Treponema sp Ab Ql (S) Non-Reactive [facility] Serum Varicella zoster virus IgG antibody assay by immunoassay (units/volume)Ordered By: Dr. Rios on 07-07-2022 VZV IgG IA Qn (S) 2093 index Immune >165 [facility] Comment on above: Negative <135 Equivo jayleen 135 - 165 Positive >165A positive result generally indicates exposure to thepathogen or administration of specific immunoglobulins,but it is not indication of active infection or stageof disease.Performed at: [facility] [address] [id number] Director: Oni Miller PhD, Phone: [phone] No Panel Informationon 01-13 Follicle Stimulating Hormone 2.0 mIU/mL [facility] Work Phone: Comment on above: NORMAL REFERENCE RAN GES FEMALE FOLLICULAR 2.3 - 12.6 mIU/mL MID-CYCLE PEAK 5.2 - 17.5 mIU/mL LUTEAL 1.7 - 12.9 mIU/mL POST-MENOPAUSAL ON MHT 5.9 - 72.8 mIU/mL NOT ON MHT 12.7 - 132.2 mlU/mL MALE 0.7 - 10.8 mIU/mL Luteinizing Hormone 0.8 mIU/mL [facility] Work Phone: Comment on above: NORMAL REFERENCE RAN GES FEMALE FOLLICULAR 1.9 - 26.2 mIU/mL MID-CYCLE PEAK 22.8 - 76.1 mIU/mL LUTEAL 0.6 - 16.6 mIU/mL POST-MENOPAUSAL ON MHT 1.1 - 52.4 mIU/mL NOT ON MHT 8.6 - 61.8 mIU/mL MALE 1.2 - 10.6 mIU/mL Thyroid Stimulating Hormone (TSH) 1.94 uIU/mL 0.358-3.74 [facility] Work Phone: Serum or plasma estradiol (E 2) measurement (mass/volume)on 01-13-2022 E2 [Mass/Vol] 23.2 pg/mL [facility] Work Phone: Comment on above: NORMAL REFERENCE [...] asurement (mass/volume)on 01-13-2022 Prolactin [Mass/Vol] 6.1 ng/mL [facility] Work Phone: Comment on above: NORMAL REFERENCE RAN GES FEMALE NON- 2.2 - 30.3 ng/mL 8.1 - 347.6 ng/mL POST-MENOPAUSAL 0.7 - 31.5 ng/mL MALE 2.5 - 17.4 ng/mL Vital Signs Date Time Vital Sign Value Performing Clinician Faci lity 02-16-2025 08:45-0400 Body height 167.64 cm Rubin Aleman CNM Work Phone: [facility] 02-16-2025 08:45-0400 Body mass index (BMI) [Ratio] 22.1 kg/m2 Rubin Aleman CNM Work Phone: [facility] 02-16-2025 08:45-0400 Body weight 62.17 kg Rubin Aleman CNM Work Phone: [facility] 02-16-2025 08:45-0400 Diastolic blood pressure 54 mm[Hg] Rubin Aleman CNM Work Phone: [facility] 02-16-2025 08:45-0400 Systolic blood pressure 88 mm[Hg] Rubin RUSSELL Work Phone: [facility] 01-22-2025 10:43-0400 Body height 167.[address] Laurie Cordero MD Work Phone: [facility] 01-22-2025 10:38-0400 Body mass index (BMI) [Ratio] 22 kg/m2 Dr. Laurie Cordero MD Work Phone: [facility] 01-22-2025 10:38-0400 Body weight 61.[address] Laurie Cordero MD Work Phone: [facility] 01-22-2025 10:38-0400 Diastolic blood pressure 58 mm[Hg] Dr. Laurie Cordero MD Work Phone: 6(622)320-816941 [place] [address] 01-22-2025 10:38-0400 Systolic blood pressure 99 mm[Hg] Dr. Laurie Cordero MD Work Phone: 7(577)437-997841 [place] [address] 12-25-2024 10:16-0400 Body height 167.[address] Laurie Cordero MD Work Phone: 0(561)455-876641 [place] [address] 12-25-2024 10:14-0400 Body mass index (BMI) [Ratio] 21.4 kg/m2 Dr. Laurie Cordero MD Work Phone: 8(989)813-591141 [place] [address] 12-25-2024 10:14-0400 Body weight 60.[address] Laurie Cordero MD Work Phone: 2(528)046-033341 [place] [address] 12-25-2024 10:14-0400 Diastolic blood pressure 54 mm[Hg] Dr. Laurie Cordero MD Work Phone: 1(414)604-664741 [place] [address] 12-25-2024 10:14-0400 Systolic blood pressure 94 mm[Hg] Dr. Laurie Cordero MD Work Phone: 8(989)844-908141 [place] [address] 11-27-2024 11:24-0400 Body height 167.[address] Laurie Cordero MD Work Phone: 8(707)410-029641 [place] [address] 11-27-2024 11:21-0400 Body mass index (BMI) [Ratio] 20.7 kg/m2 Dr. Laurie Cordero MD Work Phone: 4(919)496-451141 [place] [address] 11-27-2024 11:21-0400 Body weight 58.[address] Laurie Cordero MD Work Phone: 2(959)739-585241 [place] [address] 11-27-2024 11:21-0400 Diastolic blood pressure 63 mm[Hg] Dr. Laurie Cordero MD Work Phone: 1(396)703-775741 [place] [address] 11-27-2024 11:21-0400 Systolic blood pressure 104 mm[Hg] Dr. Laurie Cordero MD Work Phone: 3(312)581-702541 [place] [address] 10-20-2024 15:14-0400 Body height 167.[address] Laurie Cordero MD Work Phone: [facility] 10-20-2024 15:14-0400 Body mass index (BMI) [Ratio] 20.2 kg/m2 Dr. Laurie Cordero MD Work Phone: [facility] 10-20-2024 15:14-0400 Body weight 56.[address] Laurie Cordero MD Work Phone: [facility] 10-20-2024 15:14-0400 Diastolic blood pressure 54 mm[Hg] Dr. Laurie Cordero MD Work Phone: [facility] 10-20-2024 15:14-0400 Systolic blood pressure 96 mm[Hg] Dr. Laurie Cordero MD Work Phone: [facility] 09-25-2024 08:47-0400 Body mass index (BMI) [Ratio] 20.7 kg/m2 Dr. Laurie Cordero MD Work Phone: [facility] 09-25-2024 08:47-0400 Body weight 58.[address] Laurie Cordero MD Work Phone: [facility] 09-25-2024 08:47-0400 Diastolic blood pressure 71 mm[Hg] Dr. Laurie Cordero MD Work Phone: [facility] 09-25-2024 08:47-0400 Systolic blood pressure 108 mm[Hg] Dr. Laurie Cordero MD Work Phone: [facility] 05-15-2024 11:40-0500 Body height 170.2 cm Didier Dasilva MD Work Phone: [facility] 05-15-2024 11:40-0500 Body mass index (BMI) [Ratio] 19.58 kg/m2 Didier Dasilva MD Work Phone: [facility] 05-15-2024 11:40-0500 Body weight 56.7 kg Didier Dasilva MD Work Phone: [facility] 05-15-2024 11:40-0500 Diastolic blood pressure 58 mm[Hg] Didier Dasilva MD Work Phone: [facility] 05-15-2024 11:40-0500 Systolic blood pressure 100 mm[Hg] Didier Dasilva MD Work Phone: [facility] 04-02-2023 11:44-0500 Body height 170.2 cm Didier Dasilva MD Work Phone: [facility] 04-02-2023 11:44-0500 Body weight 58.51 kg Didier Dasilva MD Work Phone: [facility] 04-02-2023 11:44-0500 Diastolic blood pressure 52 mm[Hg] Didier Dasilva MD Work Phone: [facility] 04-02-2023 11:44-0500 Systolic blood pressure 96 mm[Hg] Didier Dasilva MD Work Phone: [facility] 02-19-2023 17:31-0400 Body temperature 97.8 [degF] [facility] 02-19-2023 17:31-0400 Diastolic blood pressure 68 mm[Hg] [facility] 02-19-2023 17:31-0400 Heart rate 58 /min [facility] 02-19-2023 17:31-0400 Respiratory rate 16 /min [facility] 02-19-2023 17:31-0400 Systolic blood pressure 114 mm[Hg] [facility] 02-19-2023 08:17-0400 SaO2% (BldA) [Mass fraction] 98 % [facility] 02-18-2023 04:08-0400 Body height 167.64 cm [facility] 02-18-2023 04:08-0400 Body mass index (BMI) [Ratio] 23.2 kg/m2 [facility] 02-18-2023 04:08-0400 Body weight 65.31 kg [facility] 02-13-2023 08:57-0400 Diastolic blood pressure 52 mm[Hg] [facility] Work Phone: [facility] 02-13-2023 08:57-0400 Systolic blood pressure 92 mm[Hg] Ob [facility]ound Work Phone: [facility] 02-12-2023 15:10-0400 Body weight 65.32 kg Tamra Diaz APRN.CNM Work Phone: [facility] 02-12-2023 15:10-0400 Diastolic blood pressure 58 mm[Hg] Tamra Diaz APRN.CNM Work Phone: [facility] 02-12-2023 15:10-0400 Systolic blood pressure 102 mm[Hg] Tamra Diaz APRN.CNM Work Phone: [facility] 02-05-2023 13:29-0400 Body weight 65.32 kg Didier Dasilva MD Work Phone: [facility] 02-05-2023 13:29-0400 Diastolic blood pressure 60 mm[Hg] Didier Dasilva MD Work Phone: [facility] 02-05-2023 13:29-0400 Systolic blood pressure 102 mm[Hg] Didier Dasilva MD Work Phone: [facility] Encounters Encounter Date Encounter Type Care Provider Facility Start: 03-12-2025 End: 03-12-2025 ambulatory No Primary Care Physician Facility:[facility] Start: 03-09-2025 End: 03-09-2025 Subsequent hospital visit by physician Riaz Rios APRN - MACHINE TAILER Work Phone: [facility] Comment on above: Localized swelling, mass and lump, neck Start: 03-09-2025 End: 03-09-2025 ambulatory RIAZ RIOS [facility] Start: 03-04-2025 ambulatory KATLIN CHRISTY Facility:[facility] Start: 02-26-2025 End: 02-26-2025 ambulatory Rubin Aleman Facility:[facility] Start: 02-16-2025 End: 02-16-2025 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Shanae AGUIAR -[facility] Work Phone: Start: 02-16-2025 End: 02-16-2025 ambulatory Rubin Aleman CNM Work Phone: [facility] Start: 02-16-2025 End: 02-16-2025 ambulatory Tala Muñoz Facility:[facility] Start: 01-22-2025 End: 01-22-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 Tala Muñoz DO -[facility] Work Phone: Start: 01-22-2025 End: 01-22-[address] Laurie Cordero MD Work Phone: [facility] Start: 12-29-2024 End: 12-29-2024 ambulatory MD MESFIN GARRETT [facility] Start: 12-25-2024 End: 12-25-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 Laurie Cordero MD -[facility] Work Phone: Start: 12-25-2024 End: 12-25-[address] Laurie Cordero MD Work Phone: [facility] Start: 11-27-2024 End: 11-27-2024 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Rubin Aleman CNM -[facility] Work Phone: Start: 11-27-2024 End: 11-27-[address] Laurie Cordero MD Work Phone: [facility] Start: 10-20-2024 End: 10-20-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 Laurie Cordero MD -[facility] Work Phone: Start: 10-20-2024 End: 10-20-[address] Laurie Cordero MD Work Phone: [facility] Work Phone: Start: 10-20-2024 End: 10-20-2024 ambulatory Laurie Cordero Facility:[facility] Start: 09-25-2024 End: 09-25-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 Laurie Cordero MD -[facility] Work Phone: Start: 09-25-2024 End: 09-25-2024 ambulatory Laurie Cordero [facility] Start: 05-27-2024 End: 05-27-2024 ambulatory YEE DIAZ Facility:[facility] Start: 05-26-2024 End: 05-26-2024 Telephone encounter Yee Diaz MD Work Phone: OB/Gynecology Comment on above: Early OB Bleeding Start: 05-15-2024 End: 05-15-2024 ambulatory DIDIER DASILVA Facility:[facility] Start: 05-15-2024 End: 05-15-2024 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Didier Dasilva MD Work Phone: OB/Gynecology Comment on above: Encounter for gyneco logical examination (general) (routine) without abnormal findings (Primary Dx) Start: 05-15-2024 End: 05-15-2024 Patient encounter status Didier Dasilva MD Work Phone: [facility] Start: 03-11-2024 End: 03-11-2024 Telephone encounter Didier [...] End: 02-19-2023 [facility] Start: 02-13-2023 End: 02-13-2023 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[employer] [facility] Work Phone: OB/Gynecology Comment on above: [...] Phone: OB/Gynecology Comment on above: Request Outside [facility] Records Start: 12-22-2022 Telephone encounter [facility] [place] Comment on above: [place] Gat[employer]r - O ther (Initial OB RN CC pool/) Start: 12-01-2022 End: 12-01-2022 ambulatory [facility] Work Phone: Start: 12-01-2022 End: 12-01-2022 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[facility] 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 Start: 07-07-2022 End: 07-07-2022 ambulatory [facility] Work Phone: Start: 07-07-2022 End: 07-07-2022 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[facility] 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 Start: 01-13-2022 End: 01-13-2022 ambulatory [facility] Work Phone: Start: 01-13-2022 End: 01-13-2022 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[facility], [place] 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 Procedures Date Procedure Procedure Detail Performing Clinician Start: 03-09-2025 Us soft tissue head & neck real time imge docm Riaz Rios SMOCKER - MACHINE TAILER Work Phone: Start: 02-16-2025 Serologic test for [...] therefore, no HPV testing was performed.Performed at: [facility] [address] [id number] Director: Siomara Duarte MD, Phone: [phone] Start: 10-20-2024 Antibody screen Rubin matthew Comment on above: Performed By: #### L 100.0100, D78675-6, L3890.6301, BTS, L3890.6102, L3890.6006, L509.8002, BtABORH, L509.4006 ####[facility] [id number] [place], [place], [id number] Start: 10-20-2024 Hepatitis C antibody measurement Dr. [...] HCV Quant by PCR testing - HCVPCR #[id number] Non Reactive: < 0.8 Equivocal: >/= 0.8 [...] in Cervix by Cyto stain Riaz Rios SMOCKER - MACHINE TAILER Work Phone: Start: 02-13-2023 Us preg uterus after 1st trimest 05/07 gestation Tamra Diaz SMOCKER.CNM Work Phone: Start: 02-12-2023 URINE OB DIP B/O Bria Diaz APRN.CNM Work Phone: Start: 02-05-2023 URINE OB DIP B/O Gaby Dasilva MD Work Phone: Urine culture Plan of Treatment Date Care Activity Detail Author Start: 2073 RSV Immunization for Adults (1 - 1-dose 75+ series) RSV Immunization for Adults (1 - 1-dose 75+ series) [facility] Start: 2048 Zoster Vaccines (1 of 2) Zoste r Vaccines (1 of 2) [facility] Start: 10-21-2027 Screening for malign ant neoplasm of cervix Pap Smear [facility] Start: 05-15-2025 End: 05-15-2025 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05/15/2025 4:00 PM EST Office Visit OB/Gynecology [address] [place] [address] Didier Dasilva MD [address] [place], [place] [id number] Annual OB/Gynecology Comment on above: Annual Start: 02-26-2025 Ultrasonography for antepartum monitoring of fetus OB Limited (No Biometrics) [facility] Start: 02-26-2025 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Registered [facility] Work Phone: Start: 01-22-2025 Measurement of gluco se 2 hours after glucose challenge for glucose tolerance test [facility] Start: 01-22-2025 Serologic test for syphilis [facility] Start: 01-22-2025 [facility] Start: 01-05-2025 COVID-19 Vaccine ( season) COVID-19 Vaccine () [facility] Start: 01-05-2025 Influenza vaccination Influenza Vacc ine (#1) [facility] Start: 11-27-2024 [facility] Start: 10-20-2024 CBC W Auto Different ial panel - Blood [facility] Start: 10-20-2024 Hepatitis C antibody measurement [facility] Start: 10-20-2024 Rubella IgG measurement [facility] Start: 10-20-2024 Serologic test for syphilis [facility] Start: 10-20-2024 [facility] Start: 10-20-2024 Liquid based cervica l cytology screening [facility] Start: 05-30-2024 End: 05-30-2024 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05/30/2024 10:00 AM EST Office Visit OB/Gynecology [address] [place] [address] Tamra Diaz APRN.[facility] [address] [place] [address] Early OB - f/u bleeding OB/Gynecology Comment on above: Early OB - f/u bleed ing Start: 05-27-2024 End: 05-27-2024 ambulatory 05/27/2024 4:45 PM EST Results Only Eamon Perry [facility] [address] [place] [address] [place] [facility] Start: 05-27-2024 End: 05-27-2024 ambulatory 05/27/2024 11:30 AM EST Results Only Eamon Perry [facility] [address] [place] [address] Eamon [place] [facility] Start: 05-15-2024 End: 05-15-2024 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05/15/2024 11:30 AM EST Office Visit OB/Gynecology [address] [place] [address] Didier Dasilva MD [address] [place] [address] Annual - r/s from 04/08 OB/Gynecology Comment on above: Annual - r/s from Start: 04-08-2024 End: 04-08-2024 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04/08/2024 8:40 AM EST Office Visit OB/Gynecology [address] [place] [address] Didier Dasilva MD [address] [place] [address] Annual OB/Gynecology Comment on above: Annual Start: 01-06-2024 Covid-19 Vaccine ( season) Covid-19 Vaccine ( season) [facility] Start: 01-06-2024 Covid-19 Vaccine ( season) Covid-19 Vaccine ( season) [facility] Start: 01-06-2024 Influenza vaccination Influenza Vacc ine (#1) [facility] Start: 05-07-2023 Depression Assessment Depression Ass essment [facility] Start: 02-19-2023 [facility] Start: 02-19-2023 Patient discharge [facility] Start: 02-18-2023 Administration of medication [facility] Start: 02-18-2023 Application of ice c ollar, cap or bag [facility] Start: 02-18-2023 Catheterization of vein [facility] Start: 02-18-2023 Introduction of urin ariel catheter [facility] Start: 02-18-2023 Measuring intake and output [facility] Start: 02-18-2023 Notification of physician [facility] Start: 02-18-2023 Procedure discontinued [facility] Start: 02-18-2023 Provision of activit y privileges [facility] Start: 02-18-2023 Vital signs measurements [facility] Start: 02-18-2023 [facility] Start: 02-18-2023 Admission procedure [facility] Start: 01-05-2023 Covid-19 Vaccine () Covid-19 Vaccine ( season) [facility] Start: 01-05-2023 Influenza vaccination [facility] Start: 05-07-2022 DEPRESSION ASSESSMENT DEPRESSION ASS ESSMENT [facility] Start: 07-21-2019 PAP TESTING PAP TESTING [facility] Start: 07-21-2019 Screening for malign ant neoplasm of cervix [facility] Start: 2017 DTaP/Tdap/Td Vaccine s (1 - Tdap) DTaP/Tdap/Td Vaccines (1 - Tdap) [facility] [facility] Start: 2017 Hepatitis B Vaccine (1 of 3 - 19+ 3-dose series) Hepatitis B Vaccine (1 of 3 - 19+ 3-dose series) [facility] Start: 2017 Hepatitis B Vaccines (1 of 3 - 19+ 3-dose series) Hepatitis B Vaccines (1 of 3 - 19+ 3-dose series) [facility] Start: 2017 Urine microalbumin profile [facility] Start: 2016 Anxiety Screening Anxiety Screening [facility] Start: 2016 Depression Screening Depression Scre ening [facility] Start: 2016 HEPATITIS C SCREENING HEPATITIS C SC REENING [facility] Start: 2016 HIV SCREENING HIV SCREENING [facility] Start: 2013 HPV Vaccine (1 - 3-d ose series) HPV Vaccine (1 - 3-dose series) [facility] Start: 2013 HPV Vaccines (1 - 3- dose series) HPV Vaccines (1 - 3-dose series) [facility] Start: 2012 PEDS TO ADULT TRANSI TION ANNUAL ASSESSMENT PEDS TO ADULT TRANSITION ANNUAL ASSESSMENT [facility] Start: 07-21-2011 Varicella vaccination Varicell a Vaccines (1 of 2 - 13+ 2-dose series) [facility] Start: 2010 Depression Screening Depression Scre ening [facility] Start: 2010 PEDS TO ADULT TRANSI TION INITIAL DISCUSSION PEDS TO ADULT TRANSITION INITIAL DISCUSSION [facility] Start: 07-21-2007 HPV VACCINE (1 - 2-d ose series) HPV VACCINE (1 - 2-dose series) [facility] Start: 07-21-1999 MMR Vaccines (1 of 1 - Standard series) MMR Vaccines (1 of 1 - Standard series) [facility] Start: 01-20-1999 COVID-19 VACCINE (#1) COVID-19 VACCI NE (#1) [facility] Start: 1998 HEPATITIS B (1 of 3 - 3-dose series) HEPATITIS B (1 of 3 - 3-dose series) [facility] Start: 1998 Hepatitis B Vaccine (1 of 3 - 3-dose series) Hepatitis B Vaccine (1 of 3 - 3-dose series) [facility] CBC W Auto Different ial panel - Blood [facility] Chlamydia deoxyribon ucleic acid detection [facility] End: 06-26-2024 Choriogonadotropin.beta subunit [Units/volume] in Serum or Plasma HCG QUANTITATIVE Lab Routine Bleeding in early 2x per week for 2 Occurrences starting 05/26/2024 until 06/26/2024 [facility] Work Phone: Comment on above: 2x per week for 2 Oc currences starting 05/26/2024 until 06/26/2024 Erythrocyte mean corpuscular volume determination [facility] Hematocrit [Volume Fraction] of Blood [facility] Hemoglobin [Mass/vol ume] in Blood [facility] Hepatitis B virus reyes rface Ag [Presence] in Serum [facility] Leukocytes [#/volume ] in Blood [facility] Liquid based cervica l cytology screening [facility] Mean corpuscular hemoglobin concentration determination [facility] Mean corpuscular hemoglobin determination [facility] Neutrophil count [facility] Neutrophil percent differential count [facility] End: 08-11-2023 OBSTETRIC ULTRASOUND [facility] OBSTETRIC ULTRASOUND [facility] Anc Imaging Routine 37 weeks gestation of Uterine size-date discrepancy, third trimester Once per month for 5 Occurrences starting 02/12/2023 until 08/11/2023 [facility] Work Phone: Comment on above: Once per month for 5 Occurrences starting 02/12/2023 until 08/11/2023 Path report.final Dx Spec [facility] Work Phone: Patient referral [facility] Work Phone: Platelets [#/volume] in Blood [facility] Red blood cell count [facility] Red cell distributio n width determination [facility] Immunizations Immunization Date Immunization Notes Care Provider Fa cility 03-01-2023 influenza virus vacc ine, unspecified formulation Riaz Rios [employer] Work Phone: [facility] Payers Date Payer Category Payer Self-pay 2024 [employer] - [employer] [id number] 2022 Unknown [employer] PPO [id number] 2022-Present [phone] [address] [place] [address] [id number] 2022 Unknown [id number] 2000 Unknown [id number]. 2.479 Unknown [id number] [id number]. 2.462 Unknown [id number] [id number]. 2.462 Unknown [id number] [id number]. 2.462 Unknown [id number] [id number]. 2.462 Unknown [id number] [id number]. 2.462 Unknown [id number] [id number]. 2.462 Unknown [id number] [id number]. 2.462 Unknown [id number] [id number]. 2.462 Unknown [id number] [id number]. 2.462 Unknown [id number] [id number]. 2.462 Unknown [id number] [id number]. 2.462 Social History Date Type Detail Facility [facility] ever [facility] Work Phone: Start: 2000 Sex Assigned At Female [facility] Start: 02-18-2023 Tobacco [facility] Tobacco smoking consumption unknown [facility] Start: 2000 Sex Assigned At Not on file [facility] Start: 01-03-2023 End: 01-25-2023 Gender identity Not on file [facility] Start: 01-03-2023 End: 10-10-2024 Tobacco smoking status NHIS Never smoked tobacco [facility] Work Phone: Start: 01-03-2023 Tobacco use and exposure Smokeless tobacco non-user [facility] Work Phone: Start: 01-03-2023 End: 05-15-2024 Alcohol intake Ex-drinker (finding) [facility] Start: 01-03-2023 End: 01-25-2023 Alcohol intake [facility] Start: 01-03-2023 Education 17 [facility] Start: 06-06-2022 [facility] National Score (1-100), lower number is lower risk 50 [facility] Start: 05-26-2024 Gender identity Identifies as female gender (finding) [facility] Start: 03-05-2025 Sex Female (finding) [facility] Goals Date Patient Goal Desired Activity /State Clinical Notes 12-25-2022 to 02-16-2025 Note Date & Type Note Facility 02-16-2025 Progress note [facility] 01-22-2025 Progress note [facility] 12-25-2024 Progress note [facility] 11-27-2024 Evaluation note Diagnosis Onset [...] 8:27am Placenta previa resolved February 042024 8:27am [facility] Work Phone: 1(308) 374-256307-24-2025 Progress [facility] [address] [place] [address], [address] [place] [address] OFFICE VISIT Date of Service: 11/27/24 MR#: [id number] Acct: [id number] Name: MARIMAR MIRZA Rep #: [id number] : 2000 Provider: JAY JAY Aleman Age/Sex: 24/F Location[facility] Status: Signed Intake Vital Signs 09/25/24 08:47 10/20/24 15:14 11/27/24 11:21 11/27/24 11:24 Height 5 ft 6 in 5 ft 6 in 5 ft 6 in 5 ft 6 in Weight: 128 lb 4 oz BMI 20.7 BP 104/63 Intake Visit Reasons: 14wks ob Chief Complaint: 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 Required: No Is patient in pain?: No Allergies No Known Allergies Allergy (Verified 11/27/24 11:20) Medications ?Medication ?Instructions ?Recorded ?Confirmed ?Type acetaminophen 500 mg tablet 1,000 mg (2 x 500 mg) PO Q 6H PRN 02/19/23 11/27/24 Rx PRN Pain 1-10 Or Fever #0 tabs multivit-min no.71-iron fum 28 cap PO 10/10/24 5 History mg-folate no.1 1 mg-dha 300 mg capsule (PNV-Escanaba) Last Menstrual Period: 08/14/24 : No PFSH [...] and running frequency: daily duration: 30-45 minutes/day davide/church: Bahai seatbelt use: always do you feel safe at home: Yes 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 Date Name GA/Weeks Outcome Route Bth Weight Gen Labor Lgth Anesthesia Del Locatn Provider FOB 07/19/19 ADOPTED- [facility] 02/18/23 Indie 39 live - full term 7# Female epidu [facility] Dr. Rinku Calderon Delivery Date: 02/18/23 [...] Cosigner Signature: Date (if applicable) CC: ~ [facility]06-16-2025 Evaluation note* Diagnosis Onset Date [...] vein of leg acute Jan emb2024 10:36am [facility] Work Phone: 1(157) 721-227506-16-2025 Progress [facility] [address] [place] [address], [address] [place] [address] OFFICE VISIT Date of Service: 10/20/24 MR#: [id number] Acct: [id number] Name: MARIMAR MIRZA Rep #: [id number] : 2000 Provider: Dr. Oren Cordero MD Age/Sex: 24/F Location[place] [facility] Status: Signed Intake Vital Signs 02/18/23 04:08 09/25/24 08:47 10/20/24 15:14 Height 5 ft 6 in 5 ft 6 in 5 ft 6 in Weight: 125 lb 8 oz BMI 20.2 BP 96/54 L Intake Visit Reasons: *NEW* NOB LMP 08/14, BILL 05/21 Melt Room Operator Required: No Is patient in pain?: No Allergies No Known Allergies Allergy (Verified 10/20/24 15:20) Medications ?Medication ?Instructions ?Recorded ?Confirmed ?Type acetaminophen 500 mg tablet 1,000 mg (2 x 500 mg) PO Q 6H PRN 02/19/23 10/10/24 Rx PRN Pain 1-10 Or Fever #0 tabs multivit-min no.71-iron fum 28 cap PO 10/10/24 5 History mg-folate no.1 1 mg-dha 300 mg capsule (PNV-Escanaba) Last Menstrual Period: 08/14/24 Zika: Zika virus [...] and running frequency: daily duration: 30-45 minutes/day davide/church: Bahai seatbelt use: always do you feel safe at home: Yes 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 Date Name GA/Weeks Outcome Route Bth Weight Gen Labor Lgth Anesthesia Del Locatn Provider FOB 07/19/19 ADOPTED- [facility] 02/18/23 Indie 39 live - full term 7# Female epidu [facility] Dr. Rinku Calderon Delivery Date: 02/18/23 [...] (Rh) Sensitized, Seasonal allergies, Drug/latex allergies/reactions, Breast, Mattress Renovator surgery, Anesthetic complications, History of abnormal pap, [...] comfortable and no acute distress Orientation: alert HENND Head: normal to inspection, normocephalic and atraumatic [...] Cosigner Signature: Date (if applicable) CC: ~ [facility]06-16-2025 Progress note Author Laurie Cordero [facility] Note Date/Time October 20, 2024 3:56 pm [facility] [address], [address] [place] [address] OFFICE VISIT Date of Service: 10/20/24 MR#: [id number] Acct: [id number] Name: MARIMAR MIRZA Rep #: [id number] : 2000 Provider: Dr. Oren Cordero MD Age/Sex: 24/F Location: [facility] Status: Signed Intake Vital Signs 02/18/23 04:08 09/25/24 08:47 10/20/24 15:14 Height 5 ft 6 in 5 ft 6 in 5 ft 6 in Weight: 125 lb 8 oz BMI 20.2 BP 96/54 L Intake Visit Reasons: *NEW* NOB LMP 08/14, BILL 05/21 Melt Room Operator Required: No Is patient in pain?: No Allergies No Known Allergies Allergy (Verified 10/20/24 15:20) Medications ?Medication ?Instructions ?Recorded ?Confirmed ?Type acetaminophen 500 mg tablet 1,000 mg (2 x 500 mg) PO Q 6H PRN 02/19/23 10/10/24 Rx PRN Pain 1-10 Or Fever #0 tabs multivit-min no.71-iron fum 28 cap PO 10/10/24 5 History mg-folate no.1 1 mg-dha 300 mg capsule (PNV-Escanaba) Last Menstrual Period: 08/14/24 Zika: Zika virus [...] and running frequency: daily duration: 30-45 minutes/day davide/church: Bahai seatbelt use: always do you feel safe at home: Yes 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 Date Name GA/Weeks Outcome Route Bth Weight Infant Gen Labor Lgth Anesthesia Del Locatn Provider FOB 07/19/19 ADOPTED- [facility] 02/18/23 Indie 39 live - full term 7# Female epidu [facility] Dr. Rinku Calderon Delivery Date: 02/18/23 [...] (Rh) Sensitized, Seasonal allergies, Drug/latex allergies/reactions, Breast, Mattress Renovator surgery, Anesthetic complications, History of abnormal pap, [...] to patient and patient chose: declined 10/20/24 [id number] <Electronically signed by Laurie watt MD> Date _ Laurie Cordero MD Cosigner Signature: Date (if applicable) CC: ~ [facility] Work Phone: 1(469) 282-654405-22-2025 Evaluation note* Diagnosis Onset Date Resolution Status Admit Date Vaginal delivery inactive September 8:31am Exercise-induced asthma acute J une 2024 3:10pm FH: colon cancer acute October 3:10pm acute October 20 3:10pm Supervision of normal acut e October 20, 2024 3:10pm Varicose vein of leg acute October 20, 2024 3:10pm [facility] Work Phone: 1(740) 831-813905-22-2025 Evaluation note* Diagnosis Onset Date Resolution Status [...] of leg acute November 27, 2024 11:19am [facility] Work Phone: 1(430) 188-550905-22-2025 Evaluation note* Diagnosis Onset Date Resolution Status [...] of leg acute Augu st 2024 10:10am [facility] Work Phone: [phone] Telephone encounter Note* Telephone Encounter - Tala Sinclair RN - 05/26/2024 4:49 PM EST Patient notified. Appointment given with THOMAS on Sunday. Tala Sinclair RN [facility]01-20-2025 Miscellaneous Notes* Telephone Encounter - Tala Sinclair RN - 05/26/2024 4:49 PM EST Patient notified. Appointment given with THOMAS on Sunday. Tala Sinlcair RN * Telephone Encounter - Yee Diaz [...] needed. Ava Burrell RN documented in this encounterOhio[facility]-2025 Telephone encounter Note * Telephone Encounter - Yee Diaz MD - 05/26/2024 4:46 PM EST Ordered and needs visit this week thanks [facility] Work Phone: 1(207) 940-368601-20-2025 Telephone encounter Note* Telephone Encounter - Ava [...] quant orderspending if needed. Ava Burrell RN [facility]01-09-2025 NoteHNO ID: [id number] Author: DIDIER DASILVA MD Service: ? Author Type: Physician Type: Progress Notes Filed: 05/15/2024 11:55 Note Text: Marimar is a 23 year old who presents for an annual gynecologic exam without complaints. Menses: cycles every 28 days and 4 days of flow, some cramps. Menstrual flow: Moderate OB History T1 L1 SAB0 IAB0 Ectopic0 Multiple0 Live Births1 Mattress Renovator History LMP: 04/20/2024 (Exact Date), Having periods Age at Menarche: Age at First : Age at Menopause: Mattress Renovator History Comments: Sexual Activity: Yes; Male Contraception: [...] discussed with the Patient or Patient's Authorized Jewelry Model Maker. As applicable, any other physician, advance practice provider, medical student, or other health professional student that will be observing or involved in the sensitive examination for educational or training purposes was discussed with the Patient or Authorized Jewelry Model Maker. The Patient or Authorized Jewelry Model Maker has agreed to proceed with the sensitive [...] external genitalia normal, normal Bartholin's glands, urethra, Blue Diamond's glands, no vulvar lesions, no cervical lesions, [...] year or sooner as needed Didier Dasilva [facility]01-09-2025 History of Present illness Narrative* Didier Dasilva MD - 05/15/2024 11:39 AM EST Marimar is a 23 year old who presents for an annual gynecologic exam without complaints. Menses: cycles every 28 days and 4 days of flow, some cramps. Menstrual flow: Moderate OB History T1 L1 SAB0 IAB0 Ectopic0 Multiple0 Live Births1 Mattress Renovator History LMP: 04/20/2024 (Exact Date), Having periods Age at Menarche: Age at First : Age at Menopause: Mattress Renovator History Comments: Sexual Activity: Yes; Male Contraception: [...] discussed with the Patient or Patient's Authorized Jewelry Model Maker. As applicable, any other physician, advance practice provider, medical student, or other health professional student that will be observing or involved in the sensitive examination for educational or training purposes was discussed with the Patient or Authorized Jewelry Model Maker. The Patient or Authorized Jewelry Model Maker has agreed to proceed with the sensitive [...] external genitalia normal, normal Bartholin's glands, urethra, Blue Diamond's glands, no vulvar lesions, no cervical lesions, [...] needed Didier Dasilva MD documented in this encounterOhio[facility]11-05-2024 Telephone encounter Note * Telephone Encounter - Tala Sinclair RN - 03/11/2024 5:00 PM EST Patient called back. Rescheduled appointment. Tala Sinclair RN [facility]11-05-2024 Miscellaneous Notes* Telephone Encounter - Tala Sinclair [...] day? Tala Sinclair RN documented in this encounterOhiohealth [facility]11-05-2024 Telephone encounter Note * Telephone Encounter - Tala Sinclair RN - 03/11/2024 4:48 PM EST Left message for patient to call office. Patient has annual exam with RR on 04/08 @ 0840. RR now hasa 0715 . Can patient come at a later time that day? Tala Sinclair RN [facility]03-20-2024 Miscellaneous Notes* Telephone Encounter - Lyubov Ramirez RN - 07/25/2023 8:09 AM EDT Received refill request from pharmacy. Patient seen for pp visit 04/02/2023. documented in this encounterOhiohealth [facility]ert Hospital11-27-2023 History of Present illness Narrative* Didier Dasilva MD - 04/02/2023 11:42 AM EST VISIT Marimar Mirza is a 22 year old year old here for visit. Delivery Summary: ROS/ Recovery: Feeding: Breast feeding problems: None Menses since delivery: n/a Menstrual pattern prior to : Irregular periods [place] since delivery: Not resumed Depression: denies symptoms [...] external genitalia normal, normal Bartholin's glands, urethra, Blue Diamond's glands, no vulvar lesions, no cervical lesions, [...] PRN Didier Dasilva MD documented in this encounterOhiohealth [facility]10-16-2023 Discharge summary Author Tamra Diaz [facility] February 19, 2023 1:10pm Note Date/Time February 19, 2023 1 :07pm [facility] Medical Records Department [address] [place] [address] Discharge Summary 02/19/23 1306 MR#: [id number] Acct: [id number] Name: MARIMAR MIRZA Rep #:[id number] : 2000 22 From: Tamra WISEMAN PCP: Status:ADM IN Location: LN856-1 Providers Date of Admission: 02/18/23 Date of [...] (if applicable): CC: JAY JAY Diaz~ Signed [facility] Work Phone: [phone]) 514-472210-16-2023 Progress note Author Tamra Diaz [facility] February 19, 2023 1:06pm Note Date/Time February 19, 2023 1 2:56pm [facility] Medical Records Department [address] [place] [address] Progress Note - OBGYN 02/19/23 1253 MR#: [id number] Acct: [id number] Name: MARIMAR MIRZA Rep #:[id number] : 2000 22 From: Tamra WISEMAN PCP: Status:ADM IN [facility] Subjective Subjective Doing well per patient and [...] Cosigner Signature (if applicable): CC: ~ Signed [facility] Work Phone: 1([phone]) 563-162510-16-2023 Hospital Discharge instructions Additional Instructions Date of Discharge: 02/19/23[facility] Work Phone: 1([phone]) 719-605310-16-2023 History of Present illness Narrative* Ava Burrell RN - 02/19/2023 1:08 PM EDT Patient delivered via by Dr. Dasilva on 02/18/23 at [facility]. See OB history. 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 Didier Dasilva MD~ Signed [facility] Work Phone: [phone] 159-157910-09-2023 Miscellaneous Notes* Quick Notes - Tmara Diaz APRN.CNM - 02/12/2023 3:28 PM EDT [...] week. Tamra Diaz APRN.CNM documented in this encounterOhiohealth [facility] Wert Hospital10-09-2023 Instructions* Patient Instructions* Virgil Uribe Cma - 02/12/2023 3:10 PM EDT SEQUENTIAL SCREENINGS The [facility] offers sequential screenings for women who are [...] testing. It will require an appointment withour it field technician. This is not an ultrasound performed [...] the above symptoms, contact our office at [phone] and ask to speak with anurse. After hours, you can call doctors registry at [phone] OR call [facility] at [phone] ask to have the doctor litigation services manager paged. If you consider this an emergency, dial 8-6-4 or go to your nearest emergency department. NEED HELP? Are you dealing with a violent or abusive relationship? Are you a victim of rape or sexual assult? Call [facility] ([place]) 24 hour Crisis Hotline: 482.663.2512 or 424-983-1229. MANUAL Your Guide to a Healthy manual is now on-line. Visit the [email or web address] to download your free copy documented in this encounterOhiohealth Van Wert Hospital10-09-2023 History of Past illness Narrative* Problem Noted Date Diagnosed Date Resolved Date Uterine size-date discrepanc y, third trimester 02/12/2023 04/02/2023 Benign gestational thrombocy topenia, antepartum 01/25/2023 04/02/2023 Overview: 01/29/23 Plt 122 at 36 wks. SW with care elsewhere, antepartum 01/03/2023 04/02/2023 Overview: 3Patient is transferring care from [facility]. She has a growth ultrasound in an OB visit on January 05. She is 32 weeks 1 day . She states she had a history of first trimester bleeding due to a subchorionic hematoma. No issues with bleeding since then. Patient aware to have her records from her January 05 visit with [facility] sent to us. She states that she may schedule I more visit with them prior to her visit here.Lyubov Ramirez RN documented as of this encounter (statuses as of 04/02/2023) [place] [address]-09-2023 History of Past illness Narrative* Problem Noted Date Diagnosed Date Resolved Date Uterine size-date discrepanc y, third trimester 02/12/2023 04/02/2023 Benign gestational thrombocy topenia, antepartum 01/25/2023 04/02/2023 Overview: 01/29/23 Plt 122 at 36 wks. SW with care elsewhere, antepartum 01/03/2023 04/02/2023 Overview: 01/03/2023atient is transferring care from [facility]. She has a growth ultrasound in an OB visit on January 05. She is 32 weeks 1 day . She states she had a history of first trimester bleeding due to a subchorionic hematoma. No issues with bleeding since then. Patient aware to have her records from her January 05 visit with [facility] sent to us. She states that she may schedule I more visit with them prior to her visit here.Lyubov Ramirez RN documented as of this encounter (statuses as of 07/25/2023) [facility]10-02-2023 Miscellaneous Notes* Quick Notes - Didier Dasilva [...] week Didier Dasilva M.D. documented in this encounterOhiohealth [facility] Hospital10-02-2023 Instructions* Patient Instructions* Ning Maya Ma - 02/05/2023 1:23 PM EDT SEQUENTIAL SCREENINGS The [facility] offers sequential screenings for women who are [...] testing. It will require an appointment withour it field technician. This is not an ultrasound performed [...] the above symptoms, contact our office at [phone] and ask to speak with anurse. After hours, you can call doctors registry at [phone] OR call [facility] at [phone] ask to have the doctor litigation services manager paged. If you consider this an emergency, dial 9-1-4 or go to your nearest emergency department. NEED HELP? Are you dealing with a violent or abusive relationship? Are you a victim of rape or sexual assult? Call [facility] ([place]) 24 hour Crisis Hotline: 922.131.4755 or 690-343-5109. MANUAL Your Guide to a Healthy manual is now on-line. Visit [email or web address] to download your free copy documented in this encounterOhiohealth [facility]09-07-2023 Miscellaneous Notes* Telephone Encounter - Tala Sinclair RN - 01/11/2023 2:39 PM EDT Faxed * Telephone Encounter - Ava Burrell RN - 01/10/2023 2:02 PM EDT Breast pump order received from [facility]. To SW to sign. Ava Burrell RN documented in this encounterOhiohealth [facility]ert [facility]08-29-2023 Miscellaneous Notes* Telephone Encounter - Tala Sinclair RN - 01/02/2023 2:39 PM EDT Received records from [facility]. Placed in [facility] mailbox. Tala Sinclair RN * Telephone Encounter - Jojo Salgado LPN - 01/02/2023 1:04 PM EDT Message left asking pt to call and check on her records from [facility] as we need these for tomorrow's visit. If we do not receive, tomorrow's appointment will need to be canceled until we receive records. Contacted [facility] and message left for them that we [...] here for tomorrows visit documented in this encounterOhiohealth Van Wert Hospital08-21-2023 Miscellaneous Notes* Telephone Encounter - Tala Sinclair [...] and verified. Patient wishes to transfer to [facility] for OB care. BILL? 02/26/2023 What facility is she transferring from? [facility] When was her last office visit with the current facility? Today was last appt. Ultrasound set for 2weeks from now Any medical concerns that affect the ? no Which office/provider would the patient like to establish in? [place] Will route this encounter to the desired office. * Telephone Encounter - Mercedes Merchant - 12/22/2022 9:59 AM EDT Patient called in and stated that she would like [facility] because [facility] is closing, the patient is 30 weeks . I did all of her registration and sent out the medical record release forms. She just needs scheduled and the computer does not allow me to do so. Please review and advise. Thank you! documented in this encounterSelect [facility] [place] noteNo assessment information availableWSt. Anthony's Hospital Work Phone: Evaluation note* Diagnosis with care elsewhere, antepartum- Primary Benign gestational thrombocytopenia, antepartum (HCC) 36 weeks gestation of state, incidental Encounter for supervision of normal first in third trimester Supervision of normal first documented in this encounter [facility] [place] note* Diagnosis 37 weeks gestation of - Primary state, incidental with care elsewhere, antepartum Uterine size-date discrepancy, third trimester documented in this encounter [facility] [place] note* Diagnosis Onset Date Resolution Status 38 weeks gestation of acute Nulliparity acute SROM (spontaneous rupture of membranes) acute Vaginal delivery acute [facility] Work Phone: Evaluation note* Diagnosis 37 weeks gestation of state, incidental Uterine size-date discrepancy, third trimester documented in this encounter [facility] [place] note* Diagnosis care and examination- Primary Routine follow-up documented in this encounter [facility] Hospital[facility] [place] note* Diagnosis Encounter for gynecological examination (general) (routine) without abnormal findings- Primary documented in this encounter [facility] HospitalEvalun[facility] [place] note* Diagnosis Bleeding in early - Primary Unspecified hemorrhage in early , unspecified as to episode of care documented in this encounter [facility] [place] note* Diagnosis Localized swelling, mass and lump, neck Swelling, mass, or lump in head and neck documented in this encounter [facility] Inc[facility] note Author Rubin Aleman [facility] Note Date/Time November 27, 2024 11:3 6am [facility] [address] [place] [address], [address] [place] [address] OFFICE VISIT Date of Service: 11/27/24 MR#: [id number] Acct: [id number] Name: MARIMAR MIRZA Rep #: [id number] : 2000 Provider: JAY JAY Aleman Age/Sex: 24/F [place] [facility] [place]: Signed Intake Vital Signs 09/25/24 08:47 10/20/24 15:14 11/27/24 11:21 11/27/24 11:24 Height 5 ft 6 in 5 ft 6 in 5 ft 6 in 5 ft 6 in Weight: 128 lb 4 oz BMI 20.7 BP 104/63 Intake Visit Reasons: 14wks ob Chief Complaint: 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 Required: No Is patient in pain?: No Allergies No Known Allergies Allergy (Verified 11/27/24 11:20) Medications ?Medication ?Instructions ?Recorded ?Confirmed ?Type acetaminophen 500 mg tablet 1,000 mg (2 x 500 mg) PO Q 6H PRN 02/19/23 11/27/24 Rx PRN Pain 1-10 Or Fever #0 tabs multivit-min no.71-iron fum 28 cap PO 10/10/24 5 History mg-folate no.1 1 mg-dha 300 mg capsule (PNV-Escanaba) Last Menstrual Period: 08/14/24 : No PFSH [...] and running frequency: daily duration: 30-45 minutes/day davide/church: Bahai seatbelt use: always do you feel safe at home: Yes 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 Date Name GA/Weeks Outcome Route Bth Weight Gen Labor Lgth Anesthesia Del Locatn Provider FOB 07/19/19 ADOPTED- [facility] 02/18/23 Ind[place] 39 live - full term 7# Female epidu [facility] Dr. Rinku Calderon Delivery Date: 02/18/23 [...] Cosigner Signature: Date (if applicable) CC: ~ [facility] Work Phone: Progress note Author Laurie Cordero [facility] Note Date/Time December 25, 2024 10 :30am [facility] [address], [address] [place] [address] OFFICE VISIT Date of Service: 12/25/24 MR#: [id number] Acct: [id number] Name: MARIMAR MIRZA Rep #: [id number] : 2000 Provider: Dr. Oren Cordero MD Age/Sex: 24/F [place] [facility] [place] Status: Signed Intake Vital Signs 10/20/24 15:14 11/27/24 11:24 12/25/24 10:14 12/25/24 10:16 Height 5 ft 6 in 5 ft 6 in 5 ft 6 in 5 ft 6 in Weight: 132 lb 9 oz BMI 21.4 BP 94/54 L Intake Visit Reasons: 18 wk ob Melt Room Operator Required: No Is patient in pain?: No Allergies No Known Allergies Allergy (Verified 12/25/24 10:13) Medications ?Medication ?Instructions ?Recorded ?Confirmed ?Type acetaminophen 500 mg tablet 1,000 mg (2 x 500 mg) PO Q 6H PRN 02/19/23 12/25/24 Rx PRN Pain 1-10 Or Fever #0 tabs multivit-min no.71-iron fum 28 cap PO 10/10/24 5 History mg-folate no.1 1 mg-dha 300 mg capsule (PNV-Escanaba) Last Menstrual Period: 08/14/24 Zika: Zika virus [...] and running frequency: daily duration: 30-45 minutes/day davide/church: Bahai seatbelt use: always do you feel safe at home: Yes 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 Date Name GA/Weeks Outcome Route Bth Weight Infant Gen Labor Lgth Anesthesia Del Locatn Provider FOB 07/19/19 ADOPTED- [facility] 02/18/23 Indie 39 live - full term 7# Female epidu [facility] Dr. Rinku Calderon Delivery Date: 02/18/23 [...] Cosigner Signature: Date (if applicable) CC: ~ [facility] Work Phone: Progress note Author Tala Sauer [facility] Note Date/Time January 22, 2025 10:54am [facility] [address] [facility], [address] [place] [address] OFFICE VISIT Date of Service: 01/22/25 MR#: [id number] Acct: [id number] Name: MARIMAR MIRZA Rep #: [id number] : 2000 Provider: Dr. Karen Muñoz DO Age/Sex: 24/F [place] [facility] [place] Status: Signed Intake Vital Signs 11/27/24 11:24 12/25/24 10:16 01/22/25 10:38 01/22/25 10:43 Height 5 ft 6 in 5 ft 6 in 5 ft 6 in 5 ft 6 in Weight: 136 lb 6 oz BMI 22.0 BP 99/58 L Intake Visit Reasons: 23wk ob Chief Complaint: 23 Week OB Melt Room Operator Required: No Is patient in pain?: No Allergies No Known Allergies Allergy (Verified 01/22/25 10:37) Medications ?Medication ?Instructions ?Recorded ?Confirmed ?Type acetaminophen 500 mg tablet 1,000 mg (2 x 500 mg) PO Q 6H PRN 02/19/23 01/22/25 Rx PRN Pain 1-10 Or Fever #0 tabs multivit-min no.71-iron fum 28 cap PO 10/10/24 5 History mg-folate no.1 1 mg-dha 300 mg capsule (PNV-Escanaba) Last Menstrual Period: 08/14/24 Zika: Zika virus [...] and running frequency: daily duration: 30-45 minutes/day davide/church: Bahai seatbelt use: always do you feel safe at home: Yes 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 Date Name GA/Weeks Outcome Route Bth Weight Infant Gen Labor Lgth Anes thes ia Del Locatn Provider FOB 07/19/19 ADOPTED- [facility] 02/18/23 Indie 39 live - full term 7# Female epidu [facility] Dr. Rinku Calderon Delivery Date: 02/18/23 [...] Duenasignluciano Signature: Date (if applicable) CC: ~ [facility] Work Phone: Progress note Author Shanae Figueroa [facility] Note Date/Time February 16, 2025 8 :59am [facility] [address], [address] [place] [address] OFFICE VISIT Date of Service: 02/16/25 MR#: [id number] Acct: [id number] Name: MARIMAR MIRZA Rep #: [id number] : 2000 Provider: COSME Figueroa Age/Sex: 24/F [place] [facility] [place] Status: Signed Intake Vital Signs 12/25/24 10:16 01/22/25 10:43 02/16/25 08:45 Height 5 ft 6 in 5 ft 6 in 5 ft 6 in Weight: 137 lb 1 oz BMI 22.1 BP 88/54 L Intake Visit Reasons: 27 WK OB/GLUCOSE Melt Room Operator Required: No Is patient in pain?: No Allergies No Known Allergies Allergy (Verified 02/16/25 08:42) Medications ?Medication ?Instructions ?Recorded ?Confirmed ?Type acetaminophen 500 mg tablet 1,000 mg (2 x 500 mg) PO Q 6H PRN 02/19/23 02/16/25 Rx PRN Pain 1-10 Or Fever #0 tabs multivit-min no.71-iron fum 28 cap PO 10/10/24 5 History mg-folate no.1 1 mg-dha 300 mg capsule (PNV-Escanaba) Last Menstrual Period: 08/14/24 Zika: Zika virus [...] and running frequency: daily duration: 30-45 minutes/day davide/church: Bahai seatbelt use: always do you feel safe at home: Yes 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 Date Name GA/Weeks Outcome Route Bth Weight Infant Gen Labor Lgth Anesthesia Del Locatn Provider FOB 07/19/19 ADOPTED- [facility] 02/18/23 Indie 39 live - full term 7# Female epidu [facility] Dr. Rinku Calderon Delivery Date: 02/18/23 [...] 0909 <Electronically signed by Shanae daugherty NP CERAMIC RESEARCH ENGINEER-C> Date _ Shanae Figueroa NP CERAMIC RESEARCH ENGINEER-C Cosigner Signature: Date (if applicable) CC: ~ [facility] Work Phone: Reason for referral (narrative)* Diagnostic Procedure Only (Routine) - Authorized Specialty Diagnoses / Procedures Referred By Js castellon Referred To Contact [facility] Diagnoses 37 weeks gestation of Uterine size-date discrepancy, third trimester Procedures OBSTETRIC ULTRASOUND WHI US PREG UTERUS AFTER 1ST TRIMEST GESTATION Tamra Diaz APRN.CNM [address] [place] [address] [address] Referral ID Status Reason Start Date Expiration Date Visits Requested Visits Authorized [id number] Authorized Auto-Generat ed Referral 02/12/2023 02/12/2024 5 1 [facility] HospitalReason for referral (narrative)No reason for referral information availableOur Lady Of Peace Hospital Services Work Phone: Reason for visit Narrative* Diagnostic Procedure Only (Routine) - Closed Specialty Diagnoses / Procedures Referred By Js castellon Referred To Contact [facility] Diagnoses 37 weeks gestation of Uterine size-date discrepancy, third trimester Procedures OBSTETRIC ULTRASOUND WHI US PREG UTERUS AFTER 1ST TRIMEST GESTATION Tamra Diaz APRN.CNM [address] [place] [address] [facility] [address] [place] [id number] Referral ID Status Reason Start Date Expiration Date V isits Requested Visits Authorized [id number] Closed Auto-Generate d Referral 02/12/2023 02/12/2024 5 1 [facility] Chief Complaint and Reason for Visit Chief [...] Will Yes February 18 4:18am Power of Client Partner No February 18, 2023 4:18am Summary Purpose [...] Status: Inactive Member Role Status Dates Dr. Didier Dasilva MD Attending Provider, Referring Provider Active [...] Member Role/Relationship Status Dates Shanae Figueroa NP, CERAMIC RESEARCH ENGINEER-C Attending physician Active Start: February 16, 2025 [...] physician Activ e Start: February 26, 2025 Ancillary Services Manager Relationship Specialty Start Date End Date Riaz Rios APRN - MISSY [address] [place] [address] PCP - General Nurse Practitioner 03/06/25 Source Comments (unrecognize d section and content) In the event this informatio n is protected by the Federal Confidentiality of Alcohol and Drug Abuse Patient Records regulations: The Federal rules restrict any use of the information to criminally investigate or prosecute any alcohol or drug abuse patient.[facility] HospitalIn the event this information is protected by the Federal Confidentiality of Alcohol and Drug Abuse Patient Records regulations: The Federal rules restrict any use of the information to criminally investigate or prosecute any alcohol or drug abuse patient.[facility] HospitalIn the event this information is protected by the Federal Confidentiality of Alcohol and Drug Abuse Patient Records regulations: The Federal rules restrict any use of the information to criminally investigate or prosecute any alcohol or drug abuse patient.[facility] HospitalIn the event this information is protected by the Federal Confidentiality of Alcohol and Drug Abuse Patient Records regulations: The Federal rules restrict any use of the information to criminally investigate or prosecute any alcohol or drug abuse patient.[facility] HospitalIn the event this information is protected by the Federal Confidentiality of Alcohol and Drug Abuse Patient Records regulations: The Federal rules restrict any use of the information to criminally investigate or prosecute any alcohol or drug abuse patient.[facility] HospitalIn the event this information is protected by the Federal Confidentiality of Alcohol and Drug Abuse Patient Records regulations: The Federal rules restrict any use of the information to criminally investigate or prosecute any alcohol or drug abuse patient.[facility] HospitalIn the event this information is protected by the Federal Confidentiality of Alcohol and Drug Abuse Patient Records regulations: The Federal rules restrict any use of the information to criminally investigate or prosecute any alcohol or drug abuse patient.[facility] HospitalIn the event this information is protected by the Federal Confidentiality of Alcohol and Drug Abuse Patient Records regulations: The Federal rules restrict any use of the information to criminally investigate or prosecute any alcohol or drug abuse patient.[facility] HospitalIn the event this information is protected by the Federal Confidentiality of Alcohol and Drug Abuse Patient Records regulations: The Federal rules restrict any use of the information to criminally investigate or prosecute any alcohol or drug abuse patient.[facility] HospitalIn the event this information is protected by the Federal Confidentiality of Alcohol and Drug Abuse Patient Records regulations: The Federal rules restrict any use of the information to criminally investigate or prosecute any alcohol or drug abuse patient.[facility] HospitalIn the event this information is protected by the Federal Confidentiality of Alcohol and Drug Abuse Patient Records regulations: The Federal rules restrict any use of the information to criminally investigate or prosecute any alcohol or drug abuse patient.[facility] HospitalIn the event this information is protected by the Federal Confidentiality of Alcohol and Drug Abuse Patient Records regulations: The Federal rules restrict any use of the information to criminally investigate or prosecute any alcohol or drug abuse patient.[facility] HospitalIn the event this information is protected by the Federal Confidentiality of Alcohol and Drug Abuse Patient Records regulations: The Federal rules restrict any use of the information to criminally investigate or prosecute any alcohol or drug abuse patient.[facility] Reason for Visit (unrecogniz ed section and content) Reason Comments 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 - Other Initial OB KATIANA jacobs Reason Comments Request Outside Medical Records Reason Comments Breast Pump Reason Onset Date Comments Care 02/05/2023 Reason Onset Date Comments Care 02/12/2023 Reason Comments Ob Delivery Note Reason Comments Routine Reason Comments Refill Request Reason Comments Appointment Reason Comments Yearly Exam Reason Comments Early OB Bleeding INFORMATION SOURCE (unrecogn ized section and content) DATE CREATED AUTHOR 05/28/2024 [facility] DATE CREATED AUTHOR AUTHOR'S ORGANIZ ATION 12/30/2024 [facility] DATE CREATED AUTHOR AUTHOR'S ORGANIZ ATION 03/10/2025 [facility] DATE CREATED AUTHOR AUTHOR'S ORGANIZ ATION 03/14/2025 [facility] FOR RECORDS PERTAINING TO PATIENTS [...] BE BASED ON THE PRIMARY CLINICAL RECORDS. [employer] [facility]. provides no warranty or guarantee of the accuracy or completeness of information in this document.
== END | disposition home or self-care (01) ==
LOC: LABSPEC 13:30
PROVIDERS: Referring Provider Obstetrics & Gynecology; Visit Provider Obstetrics & Gynecology
DX: Z34.83 Encounter for supervision of other normal pregnancy, third trimester (principal); Z3A.37 37 weeks gestation of pregnancy
CPT/HCPCS: 87081